=== PATIENT | female | born 1980 | race Caucasian/White ===

== ENCOUNTER 2017-01-23 04:09 | Observation (INO) | payer OTHER ==
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
[2017-01-23] MEDS ORDERED: VALIUM 10 MG/2 ML SYRINGE IV ONE (04:48)
[2017-01-23] MEDS ORDERED: Sodium Chloride 0.9% 1000 ML 1,000 ML IV STA (04:57)
[2017-01-23] MEDS ORDERED: VALIUM 10 MG/2 ML SYRINGE ONE (05:03)
[2017-01-23] MEDS ORDERED: Sodium Chloride 0.9% 1000 ML 1,000 ML ONE (05:03)
[2017-01-23 05:06] LABS: BASOPHIL % 0.3 % (0.0-0.4); Eosinophil % 0.4 % (0.00-5.0); Granulocytes % 80.4 % (36.0-66.0); Lymphocytes % 12.9 % (24.0-44.0); Mean Platelet Volume 10.3 fl (6-9.5); Platelet Count 313 K/mm3 (150-450); Red Blood Count 4.87 M/mm3 (4.1-5.4); Red Cell Distribution Width 13.2 % (11.5-14.0); White Blood Count 13.8 K/mm3 (4.0-10.5)
[2017-01-23 05:14] LABS: Collection Type CLEAN CATCH
[2017-01-23 05:15] LABS: Bacteria PACKED /HPF (NEGATIVE); COMPLETE URINE MICROSCOPIC? YES; Epithelial Cells MANY /HPF (FEW); Mucus MODERATE /HPF (NEGATIVE); Ph 5.5 (5-6)
[2017-01-23] MEDS ORDERED: BACTRIM DS TABLET PO STA (05:19)
[2017-01-23] MEDS ORDERED: BACTRIM DS TABLET PO ONE (05:29)
[2017-01-23 05:30] LABS: ALBUMIN 4.2 g/dL (3.4-5.0); ALKALINE PHOSPHATASE 68 U/L (46-116); ANION GAP 17.7 MEQ/L (5-15); BILIRUBIN,TOTAL 0.7 mg/dL (0.2-1.0); BLOOD UREA NITROGEN 13 mg/dL (9-20); CHLORIDE 104 mEq/L (98-107); Glucose 164 MG/DL (70-110); Potassium 3.5 mEq/L (3.5-5.1); SGOT/AST 41 U/L (15-37); SGPT/ALT 69 U/L (12-78); SODIUM 143 mEq/L (136-145); Total Protein 7.9 gm/dL (6.4-8.2)
[2017-01-23 05:31] LABS: ACETAMINOPHEN < 2.0 ug/ml (10-30)
[2017-01-23] MEDS ORDERED: VALIUM 10 MG/2 ML SYRINGE IV PRN (06:33)
[2017-01-23] MEDS: Sodium Chloride 0.9% 1000 ML 1,000 ML IV SCH ×2 (06:47→21:17)
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
[2017-01-23] MEDS ORDERED: SODIUM CHLORIDE 0.9% IV STA (09:55)
[2017-01-23] MEDS: BACTRIM DS TABLET PO SCH ×2 (16:47→22:51)
[2017-01-24] MEDS: Sodium Chloride 0.9% 1000 ML 1,000 ML IV SCH ×2 (06:38→15:56)
--- NOTE | 2017-01-24 08:38 | PCM.NOTE ---
Date and Time: 01/24/17 0836 Subjective Assessment: patient remains very paranoid and delusional, feels anxious today. unable to sleep Objective Exam General Appearance: no apparent distress Respiratory Exam: normal breath sounds, lungs clear, No respiratory distress Cardiovascular Exam: regular rate/rhythm, normal heart sounds Gastrointestinal/Abdomen Exam: soft, No tenderness, No mass OBJECTIVE DATA Vital Signs: Vital Signs - 24 hr Temp Pulse Resp BP Pulse Ox 01/24/17 07:38 98 F 91 H 18 105/69 94 L 01/24/17 04:00 88 01/24/17 03:58 98.2 F 88 18 105/67 95 01/24/17 00:00 97.8 F 97 H 16 113/72 94 L 01/23/17 20:00 98.2 F 93 H 12 110/83 96 01/23/17 15:53 98.2 F 103 H 12 98/66 100 01/23/17 15:48 100 H 01/23/17 14:44 103 H 12 110/69 96 01/23/17 12:00 97.9 F 85 15 81/56 94 L 01/23/17 10:45 89 16 105/66 95 01/23/17 10:36 87 18 86/63 98 01/23/17 09:51 90 18 77/61 97 01/23/17 09:50 98 H 21 73/58 97 Oxygen-Last 24 hours O2 Percentage 2 Liters = 28% O2 Percentage 2 Liters = 28% O2 Percentage 2 Liters = 28% O2 Percentage 2 Liters = 28% O2 Percentage 2 Liters = 28% O2 Percentage 2 Liters = 28% O2 Percentage 2 Liters = 28% O2 Percentage 2 Liters = 28% Pain Assessment - Last Documented Pain Scale Used 0-10 Pain Scale Intake and Output: Intake & Output 01/21/17 01/22/17 01/23/17 01/24/17 11:59 11:59 11:59 11:59 Intake Total 4714 Balance 4714 Weight 104.3 kg 107.501 kg Assessment/Plan (1) Paranoia (psychosis) Current Visit: Yes Status: Acute Assessment & Plan: resume home klonopin dose, awaiting bed placement. nursing to contact Dr Rowley today. bed was supposed to be available yesterday in stress unit but unavailable again. Code(s): F22 - DELUSIONAL DISORDERS (2) Hallucination Current Visit: Yes Status: Acute Code(s): R44.3 - HALLUCINATIONS, UNSPECIFIED (3) Drug abuse, amphetamine type Current Visit: Yes Status: Acute Code(s): F15.10 - OTHER STIMULANT ABUSE, UNCOMPLICATED (4) UTI (urinary tract infection) Current Visit: Yes Status: Acute Assessment & Plan: continue bactrim, c and s pending. Code(s): N39.0 - URINARY TRACT INFECTION, SITE NOT SPECIFIED
[2017-01-24] MEDS: Geodon 20 MG Capsule PO SCH ×2 (08:46→21:10)
[2017-01-24] MEDS: Nicoderm CQ 21 MG TOP SCH (09:17)
[2017-01-24] MEDS: Klonopin 0.5 MG PO SCH ×2 (10:40→21:10)
[2017-01-24] MEDS: BACTRIM DS TABLET PO SCH ×2 (10:53→21:10)
[2017-01-25] MEDS: Sodium Chloride 0.9% 1000 ML 1,000 ML IV SCH (01:05)
[2017-01-25] MEDS: Geodon 20 MG Capsule PO SCH ×2 (08:57→18:04)
[2017-01-25] MEDS: Klonopin 0.5 MG PO SCH ×2 (09:00→21:02)
[2017-01-25] MEDS: BACTRIM DS TABLET PO SCH ×2 (09:00→21:02)
--- NOTE | 2017-01-25 09:07 | PCM.NOTE ---
Date and Time: 01/25/17902 Subjective Assessment: She reports she has a headache. She denies any hallucinations and denies SI at this time. She was on a emergency chcf but her nurse states this ran out this AM. We are awaiting a bed at the stress center at [facility]. Her nurse reports her oxygen saturation went to 89% on room air this AM so she was placed on 2 L NC. - Review of Systems Constitutional: No Symptoms Eyes: No Symptoms Ears, Nose, & Throat: No Symptoms Respiratory: No Symptoms Cardiac: No Symptoms Abdominal/Gastrointestinal: No Symptoms Genitourinary Symptoms: No Symptoms Musculoskeletal: No Symptoms Neurological: Headache Objective Exam General Appearance: no apparent distress Neurologic Exam: alert, cooperative Skin Exam: normal color, warm, dry, No rash Respiratory Exam: normal breath sounds, lungs clear, No respiratory distress, No airway intact Cardiovascular Exam: regular rate/rhythm, normal heart sounds, No murmur, No friction rub, No gallop Gastrointestinal/Abdomen Exam: soft, normal bowel sounds, No tenderness, No distention, No mass Extremity Exam: other (no c/c/e) OBJECTIVE DATA Vital Signs: Vital Signs - 24 hr Temp Pulse Resp BP Pulse Ox 01/25/17 04:00 94 H 16 103/71 98 01/25/17 00:00 87 18 01/24/17 20:00 98.6 F 88 20 103/62 01/24/17 15:34 98 F 90 18 130/67 94 L 01/24/17 11:54 97.8 F 98 H 18 103/73 99 Pain Assessment - Last Documented Pain Scale Used 0-10 Pain Scale Intake and Output: Intake & Output 01/23/17 01/24/17 01/25/17 01/26/17 06:59 06:59 06:59 06:59 Intake Total 4714 4788 Balance 4714 4788 Weight 107.501 kg 107.501 kg Assessment/Plan (1) Paranoia (psychosis) Current Visit: Yes Status: Acute Assessment & Plan: Continue current medication. Awaiting bed at [facility]. Code(s): F22 - DELUSIONAL DISORDERS (2) UTI (urinary tract infection) Current Visit: Yes Status: Acute Assessment & Plan: Continue Bactrim Day 3. Urine cx grew E. Coli susceptible to this. Code(s): N39.0 - URINARY TRACT INFECTION, SITE NOT SPECIFIED (3) Drug abuse, amphetamine type Current Visit: Yes Status: Acute Code(s): F15.10 - OTHER STIMULANT ABUSE, UNCOMPLICATED (4) Hallucination Current Visit: Yes Status: Acute Assessment & Plan: Patient denies hallucinations today. Continue current medication. Code(s): R44.3 - HALLUCINATIONS, UNSPECIFIED
[2017-01-25] MEDS: Nicoderm CQ 21 MG TOP SCH (12:18)
[2017-01-26] MEDS: Geodon 20 MG Capsule PO SCH ×2 (07:53→17:24)
[2017-01-26] MEDS: Nicoderm CQ 21 MG TOP SCH (10:19)
[2017-01-26] MEDS: BACTRIM DS TABLET PO SCH ×2 (10:20→21:08)
[2017-01-26] MEDS: Klonopin 0.5 MG PO SCH ×2 (10:20→21:08)
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
[2017-01-27] MEDS ORDERED: TYLENOL 325 MG PO PRN (08:57)
--- NOTE | 2017-01-27 08:57 | PCM.NOTE ---
Date and Time: 01/27/1755 Subjective Assessment: patient still unable to get a bed with [facility]. states she is feeling much better, no suicidal/homicidal ideation. no hallucinations. still feels anxious Objective Exam General Appearance: no apparent distress, alert Respiratory Exam: normal breath sounds, lungs clear, No respiratory distress Cardiovascular Exam: regular rate/rhythm, normal heart sounds Gastrointestinal/Abdomen Exam: soft, No tenderness, No mass Extremity Exam: normal inspection, normal range of motion OBJECTIVE DATA Vital Signs: Vital Signs - 24 hr Temp Pulse Resp BP Pulse Ox 01/27/17 06:40 87 16 93 L 01/27/17 04:00 88 20 130/80 95 01/27/17 00:00 86 20 121/88 93 L 01/26/17 20:00 98.2 F 86 18 106/78 96 01/26/17 16:00 98.3 F 86 18 112/76 95 01/26/17 12:05 93 L 01/26/17 12:00 98.2 F 82 20 116/80 89 L Oxygen-Last 24 hours O2 Percentage 2 Liters = 28% O2 Percentage 2 Liters = 28% Pain Assessment - Last Documented Pain Intensity 0 Pain Scale Used 0-10 Pain Scale Intake and Output: Intake & Output 01/24/17 01/25/17 01/26/17 01/27/17 11:59 11:59 11:59 11:59 Intake Total 4714 4788 727 1000 Balance 4714 4788 727 1000 Weight 107.501 kg 107.501 kg Assessment/Plan (1) Paranoia (psychosis) Current Visit: Yes Status: Acute Assessment & Plan: still recommend inpatient psych and patient is agreeable and oriented Code(s): F22 - DELUSIONAL DISORDERS (2) Hallucination Current Visit: Yes Status: Resolved Code(s): R44.3 - HALLUCINATIONS, UNSPECIFIED (3) Drug abuse, amphetamine type Current Visit: Yes Status: Acute Code(s): F15.10 - OTHER STIMULANT ABUSE, UNCOMPLICATED (4) UTI (urinary tract infection) Current Visit: Yes Status: Acute Assessment & Plan: continue po bactrim, sens E coli Code(s): N39.0 - URINARY TRACT INFECTION, SITE NOT SPECIFIED
[2017-01-27] MEDS: Geodon 20 MG Capsule PO SCH (09:04)
[2017-01-27 09:15] VITALS: O2SAT 92
[2017-01-27] MEDS: Klonopin 0.5 MG PO SCH (09:43)
[2017-01-27] MEDS: Nicoderm CQ 21 MG TOP SCH (09:44)
[2017-01-27] MEDS ORDERED: VITAMIN D2 PO SCH (10:00)
[2017-01-27 12:37] VITALS: BP 122/80; PULSE 87
== END 2017-01-27 14:00 ==
LOC: ED 04:09 → ICU 06:06
PROVIDERS: ADMIT Family Medicine; ATTEND Family Medicine
DX: F22 Delusional disorders (principal); N39.0 Urinary tract infection, site not specified; F15.10 Other stimulant abuse, uncomplicated; R44.3 Hallucinations, unspecified; F41.9 Anxiety disorder, unspecified; F31.9 Bipolar disorder, unspecified; F20.9 Schizophrenia, unspecified
CPT/HCPCS: 36000; 36415; 80053; 80178; 80307; 80320; 81000; 83986; 84703; 85025; 87077; 87086; 87186; 96360; 96374; 99285; G0378; G0481; J3360; A9270-GY

== ENCOUNTER 2017-02-26 15:50 | Emergency (ER) | payer OTHER ==
[2017-02-26 15:59] VITALS: O2SAT 96
[2017-02-26] MEDS ORDERED: BACIGUENT PACKET ONE (16:06)
[2017-02-26] MEDS ORDERED: BACIGUENT PACKET TP ONE (16:07)
[2017-02-26 16:12] VITALS: BP 112/74; PULSE 101
--- NOTE | 2017-02-26 16:21 | ERPHSYRPT ---
- History of Present Illness Time Seen by Provider: 02/26/17 16:20 Source: patient Exam Limitations: no limitations Patient Subjective Stated Complaint: pt states she had sutures placed to posterior wrist 5 weeks ago and has "been to scared to have sutures removed." Triage Nursing Assessment: pt pink, warm, dry. no redness to wound. pt afebrile. Physician History: The patient comes to the ER to have sutures removed from her left wrist. The sutures were placed 5 weeks ago when she purposefully cut her left wrist. Timing/Duration: week(s) (5) Quality: other (suture removal) Severity: mild Location: hands Possible Causes: other (lac) Allergies/Adverse Reactions: cefaclor [From [facility]] Allergy (Verified 01/23/17 04:32) codeine Allergy (Verified 01/23/17 09:06) oxycodone Allergy (Verified 01/23/17 04:32) Penicillins Allergy (Verified 01/23/17 04:32) Home Medications: Clonazepam 1 mg PO BID 01/23/17 [History] Ergocalciferol (Vitamin D2) [Vitamin D2] 50,000 unit PO Q7D 01/23/17 [History] Lurasidone HCl [Latuda] 80 mg PO DAILY 01/23/17 [History] Prazosin HCl 5 mg PO HS 01/23/17 [History] Trazodone HCl 150 mg PO HS 01/23/17 [History] Hx Tetanus, Diphtheria Vaccination/Date Given: Yes (up to date) Hx Influenza Vaccination/Date Given: Yes Hx Pneumococcal Vaccination/Date Given: No Immunizations Up to Date: Yes - Review of Systems Constitutional: No Fever, No Chills Eyes: No Symptoms Ears, Nose, & Throat: No Symptoms Respiratory: No Cough, No Dyspnea Cardiac: No Chest Pain, No Edema, No Syncope Abdominal/Gastrointestinal: No Abdominal Pain, No Nausea, No Vomiting, No Diarrhea Genitourinary Symptoms: No Dysuria Musculoskeletal: Injury Skin: Other (lac), No Rash Neurological: No Dizziness, No Focal Weakness, No Sensory Changes Psychological: No Symptoms Endocrine: No Symptoms Hematologic/Lymphatic: No Symptoms Immunological/Allergic: No Symptoms All Other Systems: Reviewed and Negative - Past Medical History Pertinent Past Medical History: Yes Neurological History: Migraines ENT History: No Pertinent History Cardiac History: No Pertinent History Respiratory History: No Pertinent History Endocrine Medical History: No Pertinent History Musculoskeletal History: No Pertinent History GI Medical History: No Pertinent History History: No Pertinent History Psycho-Social History: Anxiety, Attention Deficit Disorder, Bipolar, Other Other Medical History: schiozophrenia - Past Surgical History Past Surgical History: Yes Gastrointestinal: Cholecystectomy Female Surgical History: Tubal Ligation - Social History Smoking Status: Current every day smoker How long have you smoked: 25 Exposure to second hand smoke: No Drug Use: none Patient Lives Alone: No - Female History Hx Last Menstrual Period: january 2017 - Nursing Vital Signs Nursing Vital Signs: Initial Vital Signs Temperature 98.1 F Temperature Source Oral Pulse Rate 101 Respiratory Rate 18 Blood Pressure [Right Arm] 112/74 Pain Intensity 0 - Physical Exam General Appearance: no apparent distress, alert Eye Exam: PERRL/EOMI, eyes nml inspection Ears, Nose, Throat Exam: normal ENT inspection, pharynx normal, moist mucous membranes Neck Exam: normal inspection, non-tender, supple, full range of motion Respiratory Exam: normal breath sounds, lungs clear, No respiratory distress Cardiovascular Exam: regular rate/rhythm, normal heart sounds Gastrointestinal/Abdomen Exam: soft, mass, No tenderness Pelvic Exam: not done (is a) Rectal Exam: not done Back Exam: normal inspection, normal range of motion, No CVA tenderness, No vertebral tenderness Extremity Exam: normal inspection, normal range of motion Neurologic Exam: alert, oriented x 3, cooperative, normal mood/affect, sensation nml, No motor deficits Skin Exam: laceration (healing wound with sutures) SpO2 Interpretation: normal SpO2: 96 Oxygen Delivery: Room Air Ordered Tests: Active Orders 24 hr Category Date Time Status Suture Removal STAT Care 02/26/17 16:07 Active Medication Summary Discontinued Medications Generic Name Dose Route Start Last Admin Trade Name Freq PRN Reason Stop Dose Admin Bacitracin 0.9 gm 02/26/17 16:07 02/26/17 16:09 Baciguent Packet TP 02/26/17 16:08 0.9 gm STAT ONE Administration Bacitracin Confirm 02/26/17 16:06 Baciguent Packet Administered 02/26/17 16:07 Dose 1 gm .ROUTE .STK-MED ONE - Progress Progress: improved Progress Note: 02/26/17 16:27 sutures removed by nurse. - Departure Time of Disposition: 16:27 Departure Disposition: Home Clinical Impression: Visit for suture removal Condition: Stable Critical Care Time: No
== END 2017-02-26 16:37 | disposition home or self-care (01) ==
LOC: ED 15:50
DX: Z48.02 Encounter for removal of sutures (principal)
CPT/HCPCS: 99283; A9270-GY

== ENCOUNTER 2017-03-29 07:17 | Observation (INO) | payer OTHER ==
[2017-03-29] MEDS ORDERED: Ativan 2 MG/1 ML VIAL IM ONE ×2 (07:23→08:12)
[2017-03-29] MEDS ORDERED: Ativan 2 MG/1 ML VIAL ONE ×3 (07:24→08:40)
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
[2017-03-29 07:44] LABS: BASOPHIL % 0.3 % (0.0-0.4); Eosinophil % 0.4 % (0.00-5.0); Granulocytes % 77.3 % (36.0-66.0); Lymphocytes % 12.9 % (24.0-44.0); Mean Cell Volume 89.4 fl (78-100); Mean Corpuscular Hemoglobin 29.8 pg (26-32); Mean Platelet Volume 10.3 fl (6-9.5); Monocytes % 9.1 % (0.0-12.0); Platelet Count 291 K/mm3 (150-450); Red Blood Count 4.23 M/mm3 (4.1-5.4); Red Cell Distribution Width 12.8 % (11.5-14.0); White Blood Count 15.9 K/mm3 (4.0-10.5)
[2017-03-29 08:03] LABS: ALBUMIN 3.7 g/dL (3.4-5.0); ALKALINE PHOSPHATASE 59 U/L (46-116); ANION GAP 17.6 MEQ/L (5-15); BLOOD UREA NITROGEN 5 mg/dL (9-20); CHLORIDE 100 mEq/L (98-107); Carbon Dioxide 20.5 mEq/L (21-32); Glucose 170 MG/DL (70-110); Potassium 3.1 mEq/L (3.5-5.1); SGOT/AST 44 U/L (15-37); SGPT/ALT 41 U/L (12-78); SODIUM 135 mEq/L (136-145); Total Protein 7.9 gm/dL (6.4-8.2)
[2017-03-29 08:05] LABS: ACETAMINOPHEN < 2.0 ug/ml (10-30)
[2017-03-29] MEDS ORDERED: Haldol 5 MG IM ONE (08:12)
[2017-03-29] MEDS ORDERED: Haldol 5 MG ONE (08:14)
[2017-03-29 08:17] LABS: Collection Type VOID
[2017-03-29 08:18] LABS: ADD URINE CULTURE? YES (NO); Bacteria FEW /HPF (NEGATIVE); COMPLETE URINE MICROSCOPIC? YES; Epithelial Cells MANY /HPF (FEW)
[2017-03-29] MEDS ORDERED: Sodium Chloride 0.9% 1000 ML 1,000 ML IV STA (08:30)
[2017-03-29] MEDS ORDERED: Ativan 2 MG/1 ML VIAL IV ONE (08:39)
[2017-03-29] MEDS ORDERED: Sodium Chloride 0.9% 1000 ML 1,000 ML ONE (08:40)
[2017-03-29] MEDS ORDERED: Sodium Chloride 0.9% 1000 ML 1,000 ML IV SCH (11:18)
[2017-03-29] MEDS ORDERED: Ativan 2 MG/1 ML VIAL IV PRN (11:18)
[2017-03-29] MEDS ORDERED: Geodon 20 MG INJ IM PRN (11:22)
[2017-03-29 12:20] VITALS: O2SAT 98
[2017-03-29 12:28] LABS: ACETAMINOPHEN < 2.0 ug/ml (10-30); TROPONIN < 0.017 ng/ml (0.000-0.056)
[2017-03-29] MEDS ORDERED: POTASSIUM CHLORIDE 20 mEq IN WATER 100ML 100 ML IV ONE ×3 (12:30→18:09)
--- NOTE | 2017-03-29 14:45 | PCM.HP ---
History of Present Illness - Chief Complaint Chief Complaint: Psychosis Date: 03/29/17 History of Present Illness: is a 36 year old female. Currently she is sedated and family has left. History is obtained by the ED doctor, staff and review of the records. See ED note for further details. She was paranoid with history of paranoid schizophrenia and methamphetamine use and was positive for amphetamines. She was seeing things, hearing things, threatening to hurt herself, attempting to hurt herself and attempting to hurt the nursing staff as well. She has been given ativan and Haldol and is currently sedated and sleeping. - Review of Systems Constitutional: Other (unable to obtaine secondary to mental status) Medications & Allergies Home Medications: Home Medication List Prazosin HCl 10 mg PO HS 01/23/17 [History Confirmed 03/29/17] Trazodone HCl 150 mg PO HS 01/23/17 [History Confirmed 03/29/17] Gabapentin 400 mg [Neurontin 400 MG] 400 mg PO TID 03/29/17 [History Confirmed 03/29/17] Sertraline HCl [Zoloft] 100 mg PO DAILY 03/29/17 [History Confirmed 03/29/17] Allergies/Adverse Reactions: Allergies Allergy/AdvReac Type Severity Reaction Status Date / Time cefaclor [From Ceclor] Allergy Verified 03/29/17 07:50 codeine Allergy Verified 03/29/17 07:50 oxycodone Allergy Verified 03/29/17 07:50 Penicillins Allergy Verified 03/29/17 07:50 - Past Medical History Past Medical History: Yes Neurological History: Migraines ENT History: No Pertinent History Cardiac History: No Pertinent History Respiratory History: No Pertinent History Endocrine Medical History: No Pertinent History Musculoskelatal History: No Pertinent History GI Medical History: No Pertinent History History: No Pertinent History Pyscho-Social History: Anxiety, Attention Deficit Disorder, Bipolar, Other Comment: schiozophrenia - Female History Hx Last Menstrual Period: HYST Are you now?: No - Past Surgical History Past Surgical History: Yes GI Surgical History: Cholecystectomy Female Surgical History: Tubal Ligation - Social History Smoking Status: Current every day smoker How long have you smoked: 25 Exposure to second hand smoke: No Alcohol: None Drug Use: none - Physical Exam Vital Signs: Vital Signs - 24 hr Temp Pulse Resp BP Pulse Ox 03/29/17 12:19 98 03/29/17 09:43 108 H 18 102/53 94 L 03/29/17 08:58 138 H 26 H 143/95 94 L 03/29/17 07:18 99.9 F 146 H 28 H 164/90 97 Oxygen-Last 24 hours O2 Percentage 2 Liters = 28% O2 Percentage 2 Liters = 28% General Appearance: no apparent distress, obese Neurologic Exam: No alert Eye Exam: PERRL/EOMI, No scleral icterus, No pale conjunctivae Ears, Nose, Throat Exam: moist mucous membranes Neck Exam: normal inspection, non-tender, supple Respiratory Exam: normal breath sounds, lungs clear Cardiovascular Exam: regular rate/rhythm, normal heart sounds, normal peripheral pulses, No edema Gastrointestinal/Abdomen Exam: soft, normal bowel sounds, No tenderness, No distention, No mass, No guarding Extremity Exam: other, No calf tenderness, No pedal edema Skin Exam: other (old linear superficial scars to left forearm and aparent deep scar to the left wrist no new lesions. no abraision to the right leg. SHe has some picking sores on her face that do not appear infected) Results - Labs Lab/Micro Results: Lab Results-Last 24 Hours 03/29/17 Range/Units 12:00 Troponin I < 0.017 (0.000-0.056) ng/ml Acetaminophen < 2.0 L (10-30) ug/ml Assessment/Plan (1) Acute psychosis Current Visit: Yes Status: Acute Assessment & Plan: currently sedated unclear if this is her exacerbation of her shizophrenia or from drug use as amphetamine positive as well. she is definitely an immenent threat to her own health currently and ED hold was applied for. will treat with PRN geodon or ativan if recurrence. End tidal CO2 monitor while sedated currently monitor for arousal repeating apap level 4 hours after inital draw troponin negative repeat X2 d/c if remain negative. normal saline bolus and infusion run at 250 mL/h now repeat CMP and CPK at 15:00 and monitor likely elevation due to her acute aggitation, hitting mcclellan and exertion and possibly any amphetamine use if arouses and is stable and labs reassuring would be stable for transfer [facility] if arousing and labs improving. Code(s): F23 - BRIEF PSYCHOTIC DISORDER (2) Hypokalemia Current Visit: Yes Status: Acute Code(s): E87.6 - HYPOKALEMIA (3) Increased CPK level Current Visit: Yes Status: Acute
[2017-03-29 15:34] LABS: ALBUMIN 2.8 g/dL (3.4-5.0); ALKALINE PHOSPHATASE 47 U/L (46-116); ANION GAP 10.8 MEQ/L (5-15); BLOOD UREA NITROGEN 3 mg/dL (9-20); CHLORIDE 107 mEq/L (98-107); Carbon Dioxide 24.5 mEq/L (21-32); Glucose 104 MG/DL (70-110); Potassium 3.3 mEq/L (3.5-5.1); SGOT/AST 34 U/L (15-37); SGPT/ALT 33 U/L (12-78); SODIUM 139 mEq/L (136-145); TROPONIN < 0.017 ng/ml (0.000-0.056); Total Protein 6.2 gm/dL (6.4-8.2)
[2017-03-29 20:16] VITALS: PULSE 87
[2017-03-29 20:26] VITALS: BP 110/80
--- NOTE | 2017-03-29 22:33 | XRAY ---
Indication: Pain following punching injury. Comparison: None 3 views of the right hand demonstrates old fifth metacarpal fracture. No other bony, articular, or soft tissue abnormalities.
== END 2017-03-29 22:40 | disposition short-term general hospital (02) ==
LOC: ED 07:17 → ICU 11:07
PROVIDERS: ADMIT Family Medicine; ATTEND Family Medicine
DX: F23 Brief psychotic disorder (principal); E87.6 Hypokalemia; R94.30 Abnormal result of cardiovascular function study, unspecified; F20.0 Paranoid schizophrenia; F31.9 Bipolar disorder, unspecified; F98.8 Other specified behavioral and emotional disorders with onset usually occurring in childhood and adolescence; Z72.0 Tobacco use; Z79.899 Other long term (current) drug therapy
CPT/HCPCS: 36000; 36415; 73130; 80053; 80307; 80320; 81000; 82550; 83986; 84132; 84484; 84703; 85025; 87086; 93005; 93041; 93268; 94770; 96360; 96372; 96374; 96376; 99285; G0378; G0481; J1630; J2060; J3480; J3486

== ENCOUNTER 2017-12-13 15:29 | Observation (INO) | payer OTHER ==
[2017-12-13] MEDS ORDERED: Sodium Chloride 0.9% 1000 ML 1,000 ML IV STA (16:26)
--- NOTE | 2017-12-13 16:26 | ERPHSYRPT ---
- History of Present Illness Time Seen by Provider: 12/13/17 16:21 Historian: patient, family Exam Limitations: no limitations Physician History: The patient is a 37-year-old female with her complaining of onset of chest pain earlier today that is worse with breathing. Last night she did methamphetamine. This morning she did a monster energy drink and a 5 hour energy drink. She has a psych history of paranoia and had not been taking her psychiatric medications because she ran out. She saw her psychiatrist early this morning and took a double dose of her Haldol 5 mg each and then later in the morning took another dose of Haldol. She has a history of paranoid delusions and anxiety. She smokes. She has no local doctor. She denies shortness of breath. Timing/Duration: today Activities at Onset: none Quality: sharpness Location: substernal Chest Pain Radiation: no radiation Severity of Pain-Max: moderate Severity of Pain-Current: moderate Modifying Factors: Improves With: breathing Associated Symptoms: No nausea, No vomiting Prior Chest Pain/Cardiac Workup: no prior chest pain Nitro Today/Relief: no nitro taken today Aspirin Treatment Today: no aspirin today Allergies/Adverse Reactions: cefaclor [From Ceclor] Allergy (Verified 12/13/17 16:35) codeine Allergy (Verified 12/13/17 16:35) oxycodone Allergy (Verified 12/13/17 16:35) Penicillins Allergy (Verified 12/13/17 16:35) Home Medications: Prazosin HCl 10 mg PO HS 01/23/17 [History] Trazodone HCl 150 mg PO HS 01/23/17 [History] Gabapentin 400 mg [Neurontin 400 MG] 400 mg PO TID 03/29/17 [History] Sertraline HCl [Zoloft] 100 mg PO DAILY 03/29/17 [History] Haloperidol 5 mg [Haldol 5 MG] 5 mg PO TID 12/13/17 [History] Hx Tetanus, Diphtheria Vaccination/Date Given: Yes (up to date) Hx Influenza Vaccination/Date Given: Yes Hx Pneumococcal Vaccination/Date Given: No - Review of Systems Constitutional: No Fever, No Chills Eyes: No Symptoms Ears, Nose, & Throat: No Symptoms Respiratory: No Cough, No Dyspnea Cardiac: Chest Pain Abdominal/Gastrointestinal: No Abdominal Pain, No Nausea, No Vomiting, No Diarrhea Genitourinary Symptoms: No Dysuria Musculoskeletal: No Back Pain, No Neck Pain Skin: No Rash Neurological: No Dizziness, No Focal Weakness, No Sensory Changes Psychological: Drug Abuse, Anxiety Endocrine: No Symptoms Hematologic/Lymphatic: No Symptoms Immunological/Allergic: No Symptoms All Other Systems: Reviewed and Negative - Past Medical History Pertinent Past Medical History: Yes Neurological History: Migraines ENT History: No Pertinent History Cardiac History: No Pertinent History Respiratory History: No Pertinent History Endocrine Medical History: No Pertinent History Musculoskeletal History: No Pertinent History GI Medical History: No Pertinent History History: No Pertinent History Psycho-Social History: Anxiety, Attention Deficit Disorder, Bipolar, Other Other Medical History: schiozophrenia - Past Surgical History Past Surgical History: Yes Gastrointestinal: Cholecystectomy Female Surgical History: Tubal Ligation - Social History Smoking Status: Current every day smoker How long have you smoked: 25 Exposure to second hand smoke: No Drug Use: none Patient Lives Alone: No - Nursing Vital Signs Nursing Vital Signs: Initial Vital Signs Temperature 99.1 F 12/13/17 15:30 Pulse Rate 113 H 12/13/17 15:30 Respiratory Rate 24 12/13/17 15:30 Blood Pressure 107/73 12/13/17 15:30 O2 Sat by Pulse Oximetry 97 12/13/17 15:30 Pain Scale Pain Intensity 5 - Physical Exam General Appearance: anxiety Eye Exam: PERRL/EOMI, eyes nml inspection Ears, Nose, Throat Exam: normal ENT inspection, moist mucous membranes Neck Exam: normal inspection, non-tender, supple, full range of motion Respiratory Exam: normal breath sounds, lungs clear, No respiratory distress, No wheezing Cardiovascular Exam: tachycardia Gastrointestinal/Abdomen Exam: soft, No tenderness, No mass Pelvic Exam: not done Rectal Exam: not done Back Exam: normal inspection, No CVA tenderness, No vertebral tenderness Extremity Exam: normal inspection, normal range of motion Neurologic Exam: alert, oriented x 3, cooperative, normal mood/affect, sensation nml, other (anxious), No motor deficits Skin Exam: normal color, warm, dry SpO2 Interpretation: normal - Course EKG Interpreted by Me: RATE, Sinus Tach, NORMAL INTERVALS, NORMAL QRS, NORMAL ST -T, Other (no change compared to EKG 03/29/17.) Ordered Tests: Active Orders 24 hr Category Date Time Status EKG-ER Only STAT Care 12/13/17 16:26 Active IV Insertion STAT Care 12/13/17 16:26 Active CHEST 2 VIEWS (PA AND LAT) Stat Exams 12/13/17 16:27 Taken CBC W DIFF Stat Lab 12/13/17 16:40 Completed CMP Stat Lab 12/13/17 16:40 Completed LIPASE Stat Lab 12/13/17 16:40 Completed Lactic Acid Stat Lab 12/13/17 16:38 Results TROPONIN Q3H Lab 12/13/17 16:50 Completed TROPONIN Q3H Lab 12/13/17 19:30 Ordered TROPONIN Q3H Lab 12/13/17 22:30 Ordered TROPONIN Q3H Lab 12/14/17 01:30 Ordered TROPONIN Q3H Lab 12/14/17 04:30 Ordered UA W/RFX UR CULTURE Stat Lab 12/13/17 17:32 Received Urine Triage Profile Stat Lab 12/13/17 17:32 Received Medication Summary Discontinued Medications Generic Name Dose Route Start Last Admin Trade Name Freq PRN Reason Stop Dose Admin Aspirin 324 mg 12/13/17 16:28 12/13/17 16:34 Baby Aspirin 81 Mg Chew PO 12/13/17 16:29 324 mg STAT ONE Administration Aspirin Confirm 12/13/17 16:30 Baby Aspirin 81 Mg Chew Administered 12/13/17 16:31 Dose 324 mg .ROUTE .STK-MED ONE Sodium Chloride 1,000 mls @ 999 mls/hr 12/13/17 16:26 12/13/17 16:34 Sodium Chloride 0.9% 1000 Ml IV 12/13/17 17:26 999 mls/hr .Q1H1M STA Administration Sodium Chloride Confirm 12/13/17 16:31 Sodium Chloride 0.9% 1000 Ml Administered 12/13/17 16:32 Dose 1,000 mls @ ud .ROUTE .STK-MED ONE Lorazepam 2 mg 12/13/17 16:28 12/13/17 16:33 Ativan 2 Mg/1 Ml Vial IV 12/13/17 16:29 2 mg STAT ONE Administration Lorazepam Confirm 12/13/17 16:31 Ativan 2 Mg/1 Ml Vial Administered 12/13/17 16:32 Dose 2 mg .ROUTE .STK-MED ONE Potassium Chloride 20 meq 12/13/17 17:38 12/13/17 17:43 Klor Con 10 Meq PO 12/13/17 17:39 20 meq STAT ONE Administration Potassium Chloride Confirm 12/13/17 17:42 Klor Con 10 Meq Administered 12/13/17 17:43 Dose 20 meq PO .STK-MED ONE Lab/Rad Data: Laboratory Result Diagrams 12/13/17 16:40 12/13/17 16:40 Laboratory Results 12/13/17 12/13/17 12/13/17 Range/Units 16:50 16:40 16:40 WBC 11.5 H (4.0-10.5) K/mm3 RBC 4.30 (4.1-5.4) M/mm3 Hgb 12.9 (12.0-16.0) gm/dl Hct 37.7 (35-47) % MCV 87.7 (78-100) fl MCH 30.0 (26-32) pg MCHC 34.2 (32-36) g/dl RDW 13.0 (11.5-14.0) % Plt Count 295 (150-450) K/mm3 MPV 10.5 H (6-9.5) fl Gran % 76.8 H (36.0-66.0) % Lymphocytes % 16.5 L (24.0-44.0) % Monocytes % 6.1 (0.0-12.0) % Eosinophils % 0.3 (0.00-5.0) % Basophils % 0.3 (0.0-0.4) % Basophils # 0.03 (0-0.4) Sodium 143 (136-145) mEq/L Potassium 3.2 L (3.5-5.1) mEq/L Chloride 104 (98-107) mEq/L Carbon Dioxide 20.4 L (21-32) mEq/L Anion Gap 21.9 H (5-15) MEQ/L BUN 9 (9-20) mg/dL Creatinine 1.04 (0.55-1.30) mg/dl Estimated GFR > 60 ML/MIN Glucose 155 H (70-110) MG/DL Lactic Acid (0.4-2.0) Calcium 9.6 (8.5-10.1) mg/dL Total Bilirubin 0.50 (0.2-1.0) mg/dL AST 36 (15-37) U/L ALT 26 (12-78) U/L Alkaline Phosphatase 55 (46-116) U/L Troponin I < 0.017 (0.000-0.056) ng/ml Serum Total Protein 7.6 (6.4-8.2) gm/dL Albumin 3.9 (3.4-5.0) g/dL Lipase 56 L (73-393) U/L 12/13/17 Range/Units 16:38 WBC (4.0-10.5) K/mm3 RBC (4.1-5.4) M/mm3 Hgb (12.0-16.0) gm/dl Hct (35-47) % MCV (78-100) fl MCH (26-32) pg MCHC (32-36) g/dl RDW (11.5-14.0) % Plt Count (150-450) K/mm3 MPV (6-9.5) fl Gran % (36.0-66.0) % Lymphocytes % (24.0-44.0) % Monocytes % (0.0-12.0) % Eosinophils % (0.00-5.0) % Basophils % (0.0-0.4) % Basophils # (0-0.4) Sodium (136-145) mEq/L Potassium (3.5-5.1) mEq/L Chloride (98-107) mEq/L Carbon Dioxide (21-32) mEq/L Anion Gap (5-15) MEQ/L BUN (9-20) mg/dL Creatinine (0.55-1.30) mg/dl Estimated GFR ML/MIN Glucose (70-110) MG/DL Lactic Acid 3.4 H (0.4-2.0) Calcium (8.5-10.1) mg/dL Total Bilirubin (0.2-1.0) mg/dL AST (15-37) U/L ALT (12-78) U/L Alkaline Phosphatase (46-116) U/L Troponin I (0.000-0.056) ng/ml Serum Total Protein (6.4-8.2) gm/dL Albumin (3.4-5.0) g/dL Lipase (73-393) U/L - Progress Progress: improved Air Movement: good Counseled pt/family regarding: lab results, diagnosis - Departure Time of Disposition: 17:47 Departure Disposition: Transfer (Transfer to [facility] per hospitalist Dr Woodson.) Clinical Impression: Dyspnea, Nausea and vomiting, Lung cancer Condition: Stable Critical Care Time: No Referrals: REECE WEINBERG [Primary Care Provider] -
[2017-12-13] MEDS ORDERED: Ativan 2 MG/1 ML VIAL IV ONE (16:28)
[2017-12-13] MEDS ORDERED: BABY ASPIRIN 81 MG CHEW PO ONE (16:28)
[2017-12-13] MEDS ORDERED: BABY ASPIRIN 81 MG CHEW ONE (16:30)
[2017-12-13] MEDS ORDERED: Ativan 2 MG/1 ML VIAL ONE (16:31)
[2017-12-13] MEDS ORDERED: Sodium Chloride 0.9% 1000 ML 1,000 ML ONE (16:31)
[2017-12-13 16:41] LABS: Lactic Acid 3.4 (0.4-2.0)
[2017-12-13 16:54] LABS: BASOPHIL % 0.3 % (0.0-0.4); Basophil (Absolute #) 0.03 (0-0.4); Eosinophil % 0.3 % (0.00-5.0); Eosinophil (Absolute #) 0.03 (0-0.5); Granulocyte Absolute (ANC) 8.81 (1.4-6.9); Granulocytes % 76.8 % (36.0-66.0); Hematocrit 37.7 % (35-47); Hemoglobin 12.9 gm/dl (12.0-16.0); Lymphocyte (Absolute #) 1.89 (1.0-4.6); Lymphocytes % 16.5 % (24.0-44.0); Mean Cell Volume 87.7 fl (78-100); Mean Corpuscular Hgb Concent. 34.2 g/dl (32-36); Mean Platelet Volume 10.5 fl (6-9.5); Monocytes % 6.1 % (0.0-12.0); Platelet Count 295 K/mm3 (150-450); White Blood Count 11.5 K/mm3 (4.0-10.5)
[2017-12-13 17:16] LABS: ALBUMIN 3.9 g/dL (3.4-5.0); ALKALINE PHOSPHATASE 55 U/L (46-116); ANION GAP 21.9 MEQ/L (5-15); BLOOD UREA NITROGEN 9 mg/dL (9-20); CHLORIDE 104 mEq/L (98-107); Calcium 9.6 mg/dL (8.5-10.1); Carbon Dioxide 20.4 mEq/L (21-32); Creatinine 1 1.04 mg/dl (0.55-1.30); EST GLOMERULAR FILTRATION RATE > 60 ML/MIN; Glucose 155 MG/DL (70-110); LIPASE 56 U/L (73-393); Potassium 3.2 mEq/L (3.5-5.1); SGOT/AST 36 U/L (15-37); SGPT/ALT 26 U/L (12-78); SODIUM 143 mEq/L (136-145); Total Protein 7.6 gm/dL (6.4-8.2)
[2017-12-13] MEDS ORDERED: Klor Con 10 MEQ PO ONE ×2 (17:38→17:42)
[2017-12-13 17:50] LABS: Amphetamine,Urine POS. (NEGATIVE); Barbiturate,Urine NEG. (NEGATIVE); Benzodiazepine,Urine NEG. (NEGATIVE); Cocaine,Urine NEG. (NEGATIVE); Methadone,Urine NEG. (NEGATIVE); Opiate,Urine NEG. (NEGATIVE); PCP,Urine NEG. (NEGATIVE); THC,Urine NEG. (NEGATIVE)
[2017-12-13] MEDS ORDERED: Ativan 2 MG/1 ML VIAL IV PRN (18:07)
[2017-12-13 18:12] LABS: Appearance SLIGHTLY CLOUDY (CLEAR); Bacteria MODERATE /HPF (NEGATIVE); Bilirubin NEGATIVE (NEGATIVE); Blood NEGATIVE Ery/ul (0-5); Epithelial Cells MODERATE /HPF (FEW); Glucose NEGATIVE (NEGATIVE); Ketones NEGATIVE (NEGATIVE); Leukocyte Esterase 1+ (NEGATIVE); Mucus MODERATE /HPF (NEGATIVE); Nitrite NEGATIVE (NEGATIVE); Protein,Urine Dip NEGATIVE (Negative); Urobilinogen NORMAL mg/dL (0-1)
[2017-12-13] MEDS ORDERED: MILK OF MAGNESIA 30 ML PO PRN (18:28)
[2017-12-13] MEDS ORDERED: Senokot-S Tablet PO PRN (18:28)
[2017-12-13] MEDS ORDERED: MAALOX ES 30 ML UNIT DOSE PO PRN (18:28)
[2017-12-13] MEDS ORDERED: TYLENOL 325 MG PO PRN (18:28)
[2017-12-13] MEDS ORDERED: Zofran 4 MG/2 ML VIAL IV PRN (18:28)
--- NOTE | 2017-12-13 21:54 | XRAY ---
Indication: Chest pain. Comparison: None PA/lateral chest clear. Heart and mediastinal structures within normal limits. Bony thorax intact. Impression: Nonacute chest.
[2017-12-13] MEDS: Neurontin 400 MG PO SCH (21:55)
[2017-12-13] MEDS: Haldol 5 MG PO SCH (21:56)
[2017-12-13] MEDS ORDERED: Desyrel 150 MG PO SCH (22:00)
[2017-12-14 05:30] LABS: BASOPHIL % 0.5 % (0.0-0.4); Basophil (Absolute #) 0.04 (0-0.4); Eosinophil % 3.5 % (0.00-5.0); Eosinophil (Absolute #) 0.28 (0-0.5); Granulocyte Absolute (ANC) 4.74 (1.4-6.9); Granulocytes % 59.9 % (36.0-66.0); Hematocrit 37.9 % (35-47); Hemoglobin 12.4 gm/dl (12.0-16.0); Lymphocytes % 27.7 % (24.0-44.0); Mean Cell Volume 90.7 fl (78-100); Mean Corpuscular Hemoglobin 29.7 pg (26-32); Mean Corpuscular Hgb Concent. 32.7 g/dl (32-36); Mean Platelet Volume 9.8 fl (6-9.5); Monocyte (Absolute #) 0.67 (0.0-1.3); Monocytes % 8.4 % (0.0-12.0); Platelet Count 267 K/mm3 (150-450); Red Blood Count 4.18 M/mm3 (4.1-5.4); Red Cell Distribution Width 13.3 % (11.5-14.0); White Blood Count 7.9 K/mm3 (4.0-10.5)
[2017-12-14 06:24] LABS: ALBUMIN 3.4 g/dL (3.4-5.0); ALKALINE PHOSPHATASE 49 U/L (46-116); ANION GAP 14.2 MEQ/L (5-15); BLOOD UREA NITROGEN 6 mg/dL (9-20); CHLORIDE 105 mEq/L (98-107); Calcium 8.5 mg/dL (8.5-10.1); Carbon Dioxide 27.7 mEq/L (21-32); Cholesterol 140 mg/dL (100-200); Creatinine 1 0.77 mg/dl (0.55-1.30); EST GLOMERULAR FILTRATION RATE > 60 ML/MIN; Glucose 111 MG/DL (70-110); HDL CHOLESTEROL 41 mg/dL (35-60); LDL, DIRECT 87 mg/dL (5-99); Potassium 3.8 mEq/L (3.5-5.1); Risk Ratio 3.4; SGOT/AST 30 U/L (15-37); SGPT/ALT 26 U/L (12-78); SODIUM 143 mEq/L (136-145); TRIGLYCERIDE 69 mg/dL (30-200); Total Protein 6.6 gm/dL (6.4-8.2)
[2017-12-14] MEDS ORDERED: MEDICATION INTERVENTION MC SCH (09:30)
[2017-12-14] MEDS: Neurontin 400 MG PO SCH (09:37)
[2017-12-14] MEDS: Haldol 5 MG PO SCH (09:37)
[2017-12-14] MEDS ORDERED: FLUCELVAX QUAD 2017-2018 SYR IM ONE (10:00)
[2017-12-14] MEDS ORDERED: ZOLOFT 50 MG TABLET PO SCH (10:00)
[2017-12-14] MEDS ORDERED: Ecotrin 325 MG PO SCH (10:00)
--- NOTE | 2017-12-14 10:19 | PCM.DCORD ---
- Discharge Discharge Date: 12/14/17 Disposition: Home, Self-Care Condition: Good Prescriptions: New Aspirin EC 325 mg [Ecotrin 325 MG] 325 mg PO DAILY #30 tablet.ec Continue Trazodone HCl 150 mg PO HS Prazosin HCl 10 mg PO HS Sertraline HCl [Zoloft] 100 mg PO DAILY Gabapentin 400 mg [Neurontin 400 MG] 400 mg PO TID Haloperidol 5 mg [Haldol 5 MG] 5 mg PO TID Instructions: Chest Pain Follow up with: REECE WEINBERG [Primary Care Provider] - 1 Week Forms: Discharge Instructions
[2017-12-14 10:24] VITALS: BP 114/65; PULSE 92; O2SAT 99
[2017-12-14] MEDS ORDERED: PRAZOSIN HCL 10 MG PO SCH (22:00)
--- NOTE | 2017-12-18 13:47 | SSS ---
ADMISSION DIAGNOSES: 1) Chest pain. 2) Schizophrenia. 3) Polysubstance abuse. DISCHARGE DIAGNOSES: 1) CHEST PAIN. 2) SCHIZOPHRENIA. 3) POLYSUBSTANCE ABUSE. HISTORY OF PRESENT ILLNESS: This is a 37 year old patient without a physician in the local area who presented to the emergency department complaining of chest pain. She reports to me today that it was sharp and caused her to have shortness of breath. She denies having chest pain in the past. She had done methamphetamine the night before and then was drinking [employer] drinks the morning that the chest pain started. She reports her chest pain is completely gone now. She is feeling well and would like to go home. Her nurse notes that she has refused all of her a.m. medications. The patient reports that she usually smokes two packs per day of cigarettes and has cut back on this. She reports she does not plan on using methamphetamine again. REVIEW OF SYSTEMS: No chest pain. No shortness of breath. No abdominal pain. No nausea or vomiting. No lower extremity edema. No rashes. No fever. PAST MEDICAL HISTORY: Schizophrenia, polysubstance abuse, tobacco abuse. PAST SURGICAL HISTORY: Cholecystectomy. Tubal ligation. MEDICATIONS: Gabapentin 400 mg p.o. t.i.d., Haldol 5 mg t.i.d., Prazosin 10 mg p.o. q.h.s., Sertraline 100 mg p.o. daily, trazodone 150 mg p.o. q.h.s. ALLERGIES: CEFACLOR, CODEINE, OXYCODONE, PENICILLIN. SOCIAL HISTORY: She is and lives with her . She reports that she is not able to work. She smokes two packs per day of cigarettes and has used methamphetamine in the past. FAMILY HISTORY: Her mother has mental health problems. Her father is and she does not know if he had any major health problems. PHYSICAL EXAMINATION: VITAL SIGNS: Temperature current 98.4F, temperature max 99.1F, heart rate 88 to 113 currently 88, respiratory rate 18 to 22, blood pressure 110 to 117 over 68 to 76. Oxygen saturation 91 to 94% on room air. GENERAL: The patient is a pleasant lady sitting up in bed in no acute distress. CVS: She has a regular rate and rhythm. No murmurs, gallops or rubs are appreciated. CHEST: Clear to auscultation bilaterally. No crackles or wheezes. ABDOMEN: Soft, nontender. SKIN: Warm, dry and intact. EXTREMITIES: No clubbing, cyanosis or edema. HOSPITAL COURSE: 1) CHEST PAIN: She has ruled out for acute myocardial infarction with serial troponins that have been negative. Her EKG is normal. There have been no events on telemetry. She was continued on aspirin daily and will have her continue this as an outpatient. The patient was instructed that she should see Dr. Waggoner and consider having a stress test done on her heart. 2) POLYSUBSTANCE ABUSE: The patient was counseled that she should quit using methamphetamines but she said is going to and that she should think about quitting using tobacco. 3) SCHIZOPHRENIA: She was continued on her home medications while she was here. She has a psychiatrist that she follows up with as an outpatient. DISPOSITION: The patient was discharged to home in good condition. FOLLOW UP: She is to follow up with her primary care doctor, Dr. Waggoner. DISCHARGE MEDICATIONS: She is to resume all of her home medications and also take aspirin 325 mg p.o. daily.
== END 2017-12-14 11:25 | disposition home or self-care (01) ==
LOC: ED 15:29 → MED SURG 18:25
PROVIDERS: ADMIT Internal Medicine; ATTEND Internal Medicine
DX: R07.9 Chest pain, unspecified (principal); F20.9 Schizophrenia, unspecified; F19.10 Other psychoactive substance abuse, uncomplicated; F17.200 Nicotine dependence, unspecified, uncomplicated; Z79.899 Other long term (current) drug therapy
CPT/HCPCS: 36000; 36415; 71046; 80053; 80061; 80307; 81000; 83605; 83690; 83721; 84484; 85025; 87086; 93005; 93041; 93268; 96360; 96374; 99285; G0378; J2060; A9270-GY

== ENCOUNTER 2018-11-24 11:19 | Observation (INO) | payer SELFPAY ==
[2018-11-24] MEDS ORDERED: BACIGUENT PACKET TP ONE (11:26)
--- NOTE | 2018-11-24 11:33 | ERPHSYRPT ---
- History of Present Illness Time Seen by Provider: 11/24/18 11:28 Source: patient Exam Limitations: clinical condition, other (Patient with paranoid idetion, anxious) Physician History: 38-year-old obese white female with history of migraines, anxiety, ADD, bipolar , schizophrenia, PTSD, substance abuse. Brought by medics with complaints that the patient has been taking crystal meth and has cut both wrists patient with the several superficial lacerations to both wrists not actively bleeding at this time. Patient is paranoid states were all going to thinks that "they might hurt me ". Past medical history includes migraines, anxiety, ADD, bipolar, schizophrenia, PTSD, substance abuse. Past surgical history includes cholecystectomy and tubal ligation. Timing/Duration: today Severity: moderate Modifying Factors: Improves With: other (patient apparently taking crystal meth) Associated Symptoms: other (patient anxious with paranoid ideation and superficial lacerations to both wrists), No nausea, No vomiting, No abdominal pain, No shortness of breath, No heartburn, No diaphoresis, No cough, No chills , No chest pain, No fever, No headaches, No loss of appetite, No malaise, No rash, No syncope, No seizure, No weakness Allergies/Adverse Reactions: cefaclor [From Ceclor] Allergy (Verified 12/13/17 16:35) codeine Allergy (Verified 12/13/17 16:35) oxycodone Allergy (Verified 12/13/17 16:35) Penicillins Allergy (Verified 12/13/17 16:35) Home Medications: Prazosin HCl 10 mg PO HS 01/23/17 [History] Trazodone HCl 150 mg PO HS 01/23/17 [History] Gabapentin 400 mg [Neurontin 400 MG] 400 mg PO TID 03/29/17 [History] Sertraline HCl [Zoloft] 100 mg PO DAILY 03/29/17 [History] Haloperidol 5 mg [Haldol 5 MG] 5 mg PO TID 12/13/17 [History] Hx Tetanus, Diphtheria Vaccination/Date Given: Yes (up to date) Hx Influenza Vaccination/Date Given: Yes Hx Pneumococcal Vaccination/Date Given: No - Review of Systems Constitutional: No Symptoms Eyes: No Symptoms Ears, Nose, & Throat: No Symptoms Respiratory: No Cough, No Dyspnea Cardiac: No Chest Pain, No Edema, No Syncope Abdominal/Gastrointestinal: No Abdominal Pain, No Nausea, No Vomiting, No Diarrhea Genitourinary Symptoms: No Dysuria Musculoskeletal: No Back Pain, No Neck Pain Skin: Other (multiple superficial lacerations to both wrists) Neurological: No Dizziness, No Focal Weakness, No Sensory Changes Psychological: Drug Abuse, Anxiety, Suicidal Ideations, Other (Paranoid ideation ) Endocrine: No Symptoms All Other Systems: Reviewed and Negative - Past Medical History Pertinent Past Medical History: Yes Neurological History: Migraines ENT History: No Pertinent History Cardiac History: No Pertinent History Respiratory History: No Pertinent History Endocrine Medical History: No Pertinent History Musculoskeletal History: No Pertinent History GI Medical History: No Pertinent History History: No Pertinent History Psycho-Social History: Anxiety, Attention Deficit Disorder, Bipolar, Other Other Medical History: schiozophrenia, split personalities - Past Surgical History Past Surgical History: Yes Gastrointestinal: Cholecystectomy Female Surgical History: Tubal Ligation - Social History Smoking Status: Current every day smoker How long have you smoked: 25 Exposure to second hand smoke: No Drug Use: methamphetamines Patient Lives Alone: No - Nursing Vital Signs Nursing Vital Signs: Initial Vital Signs Temperature 98.6 F 11/24/18 11:21 Pulse Rate 152 H 11/24/18 11:21 Respiratory Rate 24 11/24/18 11:21 Blood Pressure 82/62 11/24/18 11:21 O2 Sat by Pulse Oximetry 94 L 11/24/18 11:21 Pain Scale Pain Intensity 0 - Physical Exam General Appearance: moderate distress, alert, anxiety, other (anxious) Eye Exam: PERRL/EOMI, eyes nml inspection Ears, Nose, Throat Exam: normal ENT inspection, TMs normal, pharynx normal, moist mucous membranes Neck Exam: normal inspection, non-tender, supple, full range of motion Respiratory Exam: normal breath sounds, lungs clear, No respiratory distress Cardiovascular Exam: regular rate/rhythm, normal heart sounds, normal peripheral pulses, capillary refill <2 sec Gastrointestinal/Abdomen Exam: soft, normal bowel sounds, No tenderness, No mass Back Exam: normal inspection, normal range of motion, No CVA tenderness, No vertebral tenderness Extremity Exam: normal range of motion, other (multiple superficial lacerations both wrists) Neurologic Exam: alert, oriented x 3, anchorer II-XII nml as tested, agitation, other (Paranoid ideation), No motor deficits, No sensory deficit Skin Exam: other (multiple superficial lacerations both wrists) Lymphatic Exam: No adenopathy SpO2 Interpretation: normal - Course Nursing assessment & vital signs reviewed: Yes EKG Interpreted by Me: RATE (142 bpm), Sinus Tach, NORMAL AXIS, Other (EKG: Sinus tachycardia, 142 bpm, normal axis, no acute ST or T wave changes, compared to December 14, 2017) Ordered Tests: Active Orders 24 hr Category Date Time Status EKG-ER Only STAT Care 11/24/18 11:26 Active IV Insertion STAT Care 11/24/18 11:26 Active Pulse Oximetry (ED) STAT Care 11/24/18 11:26 Active Wound Care STAT Care 11/24/18 11:26 Active ACETAMINOPHEN Stat Lab 11/24/18 11:40 Completed CBC W DIFF Stat Lab 11/24/18 11:40 Completed CK-Creatinine Phosphokinase Stat Lab 11/24/18 11:40 Completed CMP Stat Lab 11/24/18 11:40 Completed ETHYL ALCOHOL Stat Lab 11/24/18 11:40 Completed HCG QUALITATIVE,SERUM Stat Lab 11/24/18 11:40 Completed SALICYLATE Stat Lab 11/24/18 11:40 Completed TROPONIN Q3H Lab 11/24/18 11:40 Completed TROPONIN Q3H Lab 11/24/18 14:45 Ordered TROPONIN Q3H Lab 11/24/18 17:45 Ordered TROPONIN Q3H Lab 11/24/18 20:45 Ordered TROPONIN Q3H Lab 11/24/18 23:45 Ordered UA W/RFX UR CULTURE Stat Lab 11/24/18 12:07 Completed Urine Triage Profile Stat Lab 11/24/18 12:07 Completed Transfer Order Routine Transfer 11/24/18 Ordered Medication Summary Discontinued Medications Generic Name Dose Route Start Last Admin Trade Name Freq PRN Reason Stop Dose Admin Bacitracin Zinc 0.9 gm 11/24/18 11:26 11/24/18 11:48 Baciguent Packet TP 11/24/18 11:27 0.9 gm STAT ONE Administration Sodium Chloride 1,000 mls @ 999 mls/hr 11/24/18 11:56 11/24/18 13:32 Sodium Chloride 0.9% 1000 Ml IV 11/24/18 12:56 Infused .Q1H1M STA Infusion Sodium Chloride Confirm 11/24/18 11:57 Sodium Chloride 0.9% 1000 Ml Administered 11/24/18 11:58 Dose 1,000 mls @ ud .ROUTE .STK-MED ONE Sodium Chloride 1,000 mls @ 999 mls/hr 11/24/18 12:52 11/24/18 13:08 Sodium Chloride 0.9% 1000 Ml IV 11/24/18 13:52 999 mls/hr .Q1H1M STA Administration Sodium Chloride Confirm 11/24/18 13:06 Sodium Chloride 0.9% 1000 Ml Administered 11/24/18 13:07 Dose 1,000 mls @ ud .ROUTE .STK-MED ONE Lorazepam 2 mg 11/24/18 11:35 11/24/18 11:49 Ativan 2 Mg/1 Ml Vial IM 11/24/18 11:36 Not Given STAT ONE Lorazepam Confirm 11/24/18 11:36 Ativan 2 Mg/1 Ml Vial Administered 11/24/18 11:37 Dose 2 mg .ROUTE .STK-MED ONE Lorazepam 1 mg 11/24/18 11:47 11/24/18 11:49 Ativan 2 Mg/1 Ml Vial IV 11/24/18 11:48 1 mg STAT ONE Administration Potassium Chloride 20 meq 11/24/18 12:53 11/24/18 13:08 Klor Con 10 Meq PO 11/24/18 12:54 20 meq STAT ONE Administration Potassium Chloride Confirm 11/24/18 13:06 Klor Con 10 Meq Administered 11/24/18 13:07 Dose 20 meq PO .STK-MED ONE Potassium Chloride 20 meq 11/24/18 14:08 11/24/18 14:12 Klor Con 10 Meq PO 11/24/18 14:09 20 meq STAT ONE Administration Potassium Chloride Confirm 11/24/18 14:10 Klor Con 10 Meq Administered 11/24/18 14:11 Dose 20 meq PO .STK-MED ONE Lab/Rad Data: Laboratory Result Diagrams 11/24/18 11:40 11/24/18 11:40 Laboratory Results 11/24/18 11/24/18 11/24/18 Range/Units 12:07 12:07 11:40 WBC (4.0-10.5) K/mm3 RBC (4.1-5.4) M/mm3 Hgb (12.0-16.0) gm/dl Hct (35-47) % MCV (78-100) fl MCH (26-32) pg MCHC (32-36) g/dl RDW (11.5-14.0) % Plt Count (150-450) K/mm3 MPV (6-9.5) fl Gran % (36.0-66.0) % Eos # (Auto) (0-0.5) Absolute Lymphs (auto) (1.0-4.6) Absolute Monos (auto) (0.0-1.3) Lymphocytes % (24.0-44.0) % Monocytes % (0.0-12.0) % Eosinophils % (0.00-5.0) % Basophils % (0.0-0.4) % Absolute Granulocytes (1.4-6.9) Basophils # (0-0.4) Sodium (137-145) mmol/L Potassium (3.5-5.1) mmol/L Chloride (98-107) mmol/L Carbon Dioxide (22-30) mmol/L Anion Gap (5-15) MEQ/L BUN (7-17) mg/dL Creatinine (0.52-1.04) mg/dL Estimated GFR ML/MIN Glucose (74-106) mg/dL Calcium (8.4-10.2) mg/dL Total Bilirubin (0.2-1.3) mg/dL AST (14-36) U/L ALT (0-35) U/L Alkaline Phosphatase (38-126) U/L Creatine Kinase (30-135) U/L Troponin I < 0.012 (0.000-0.034) ng/mL Serum Total Protein (6.3-8.2) g/dL Albumin (3.5-5.0) g/dL Serum , Qual (Negative) Urine Color YELLOW (YELLOW) Urine Appearance CLOUDY (CLEAR) Urine pH 5.0 (5-6) Ur Specific [place] 1.024 (1.005-1.025) Urine Protein 30 (Negative) Urine Ketones SMALL (NEGATIVE) Urine Blood NEGATIVE (0-5) Jorge/ul Urine Nitrite NEGATIVE (NEGATIVE) Urine Bilirubin NEGATIVE (NEGATIVE) Urine Urobilinogen 4 (0-1) mg/dL Ur Leukocyte Esterase NEGATIVE (NEGATIVE) Urine WBC (Auto) 3-5 (0-5) /HPF Urine RBC (Auto) NONE (0-2) /HPF U Hyaline Cast (Auto) 26-50 (0-2) /LPF U Epithel Cells (Auto) RARE (FEW) /HPF Urine Bacteria (Auto) FEW (NEGATIVE) /HPF Urine Mucus (Auto) MODERATE (NEGATIVE) /HPF Urine Culture Reflexed NO (NO) Urine Glucose >=500 (NEGATIVE) mg/dL Salicylates (2-20) mg/dL Urine Opiates Level NEGATIVE (NEGATIVE) Ur Methadone NEGATIVE (NEGATIVE) Acetaminophen (10-30) ug/ml Urine Barbiturates NEGATIVE (NEGATIVE) Ur Phencyclidine (PCP) NEGATIVE (NEGATIVE) Urine Amphetamine POSITIVE (NEGATIVE) U Benzodiazepine Level NEGATIVE (NEGATIVE) Urine Cocaine NEGATIVE (NEGATIVE) Urine Marijuana (THC) NEGATIVE (NEGATIVE) Ethyl Alcohol (0-10) mg/dL 11/24/18 11/24/18 11/24/18 Range/Units 11:40 11:40 11:40 WBC (4.0-10.5) K/mm3 RBC (4.1-5.4) M/mm3 Hgb (12.0-16.0) gm/dl Hct (35-47) % MCV (78-100) fl MCH (26-32) pg MCHC (32-36) g/dl RDW (11.5-14.0) % Plt Count (150-450) K/mm3 MPV (6-9.5) fl Gran % (36.0-66.0) % Eos # (Auto) (0-0.5) Absolute Lymphs (auto) (1.0-4.6) Absolute Monos (auto) (0.0-1.3) Lymphocytes % (24.0-44.0) % Monocytes % (0.0-12.0) % Eosinophils % (0.00-5.0) % Basophils % (0.0-0.4) % Absolute Granulocytes (1.4-6.9) Basophils # (0-0.4) Sodium 135 L (137-145) mmol/L Potassium 3.3 L (3.5-5.1) mmol/L Chloride 102 (98-107) mmol/L Carbon Dioxide 17 L (22-30) mmol/L Anion Gap 20.5 H (5-15) MEQ/L BUN 14 (7-17) mg/dL Creatinine 0.91 (0.52-1.04) mg/dL Estimated GFR > 60.0 ML/MIN Glucose 346 H (74-106) mg/dL Calcium 9.5 (8.4-10.2) mg/dL Total Bilirubin 0.70 (0.2-1.3) mg/dL AST 38 H (14-36) U/L ALT 48 H (0-35) U/L Alkaline Phosphatase 70 (38-126) U/L Creatine Kinase 59 (30-135) U/L Troponin I (0.000-0.034) ng/mL Serum Total Protein 7.6 (6.3-8.2) g/dL Albumin 4.3 (3.5-5.0) g/dL Serum , Qual NEGATIVE (Negative) Urine Color (YELLOW) Urine Appearance (CLEAR) Urine pH (5-6) Ur Specific [place] (1.005-1.025) Urine Protein (Negative) Urine Ketones (NEGATIVE) Urine Blood (0-5) Jorge/ul Urine Nitrite (NEGATIVE) Urine Bilirubin (NEGATIVE) Urine Urobilinogen (0-1) mg/dL Ur Leukocyte Esterase (NEGATIVE) Urine WBC (Auto) (0-5) /HPF Urine RBC (Auto) (0-2) /HPF U Hyaline Cast (Auto) (0-2) /LPF U Epithel Cells (Auto) (FEW) /HPF Urine Bacteria (Auto) (NEGATIVE) /HPF Urine Mucus (Auto) (NEGATIVE) /HPF Urine Culture Reflexed (NO) Urine Glucose (NEGATIVE) mg/dL Salicylates < 1.0 L (2-20) mg/dL Urine Opiates Level (NEGATIVE) Ur Methadone (NEGATIVE) Acetaminophen < 10 L (10-30) ug/ml Urine Barbiturates (NEGATIVE) Ur Phencyclidine (PCP) (NEGATIVE) Urine Amphetamine (NEGATIVE) U Benzodiazepine Level (NEGATIVE) Urine Cocaine (NEGATIVE) Urine Marijuana (THC) (NEGATIVE) Ethyl Alcohol < 10 (0-10) mg/dL 11/24/18 Range/Units 11:40 WBC 11.4 H (4.0-10.5) K/mm3 RBC 4.14 (4.1-5.4) M/mm3 Hgb 12.6 (12.0-16.0) gm/dl Hct 38.2 (35-47) % MCV 92.3 (78-100) fl MCH 30.4 (26-32) pg MCHC 33.0 (32-36) g/dl RDW 12.8 (11.5-14.0) % Plt Count 274 (150-450) K/mm3 MPV 10.7 H (6-9.5) fl Gran % 87.3 H (36.0-66.0) % Eos # (Auto) 0.02 (0-0.5) Absolute Lymphs (auto) 1.05 (1.0-4.6) Absolute Monos (auto) 0.34 (0.0-1.3) Lymphocytes % 9.2 L (24.0-44.0) % Monocytes % 3.0 (0.0-12.0) % Eosinophils % 0.2 (0.00-5.0) % Basophils % 0.3 (0.0-0.4) % Absolute Granulocytes 9.94 H (1.4-6.9) Basophils # 0.03 (0-0.4) Sodium (137-145) mmol/L Potassium (3.5-5.1) mmol/L Chloride (98-107) mmol/L Carbon Dioxide (22-30) mmol/L Anion Gap (5-15) MEQ/L BUN (7-17) mg/dL Creatinine (0.52-1.04) mg/dL Estimated GFR ML/MIN Glucose (74-106) mg/dL Calcium (8.4-10.2) mg/dL Total Bilirubin (0.2-1.3) mg/dL AST (14-36) U/L ALT (0-35) U/L Alkaline Phosphatase (38-126) U/L Creatine Kinase (30-135) U/L Troponin I (0.000-0.034) ng/mL Serum Total Protein (6.3-8.2) g/dL Albumin (3.5-5.0) g/dL Serum , Qual (Negative) Urine Color (YELLOW) Urine Appearance (CLEAR) Urine pH (5-6) Ur Specific [place] (1.005-1.025) Urine Protein (Negative) Urine Ketones (NEGATIVE) Urine Blood (0-5) Jorge/ul Urine Nitrite (NEGATIVE) Urine Bilirubin (NEGATIVE) Urine Urobilinogen (0-1) mg/dL Ur Leukocyte Esterase (NEGATIVE) Urine WBC (Auto) (0-5) /HPF Urine RBC (Auto) (0-2) /HPF U Hyaline Cast (Auto) (0-2) /LPF U Epithel Cells (Auto) (FEW) /HPF Urine Bacteria (Auto) (NEGATIVE) /HPF Urine Mucus (Auto) (NEGATIVE) /HPF Urine Culture Reflexed (NO) Urine Glucose (NEGATIVE) mg/dL Salicylates (2-20) mg/dL Urine Opiates Level (NEGATIVE) Ur Methadone (NEGATIVE) Acetaminophen (10-30) ug/ml Urine Barbiturates (NEGATIVE) Ur Phencyclidine (PCP) (NEGATIVE) Urine Amphetamine (NEGATIVE) U Benzodiazepine Level (NEGATIVE) Urine Cocaine (NEGATIVE) Urine Marijuana (THC) (NEGATIVE) Ethyl Alcohol (0-10) mg/dL - Progress Progress: improved Progress Note: 11/24/18 13:57 38-year-old white female with history of migraines, anxiety, ADD, bipolar, schizophrenia, PTSD, substance abuse. Patient arrives to the patient was extremely agitated had a heart rate of 150 on arrival she had apparently been using methamphetamines. The patient had apparently expressed to the police that she wanted to she said why don't you just shoot me in the head. Patient has bilateral low multiple superficial wrist lacerations. Patient was given Ativan 1 mg IV patient was noted to have a blood pressure running into the 80s at times this is slowly come up and her heart rate has come down with receiving IV normal saline.. Patient was also given potassium 20 mEq orally. Patient does seem to be somewhat somnolent at this time and is felt that patient warrants further observation in the ICU. She will require a [facility] consult when patient appears to be somewhat more stable. Patient's EKG on arrival sinus tachycardia 1 42 bpm normal axis no acute ST or T wave changes are noted Patient's urine drug screen is positive for amphetamines Patient's chemistry sodium 135 potassium 3.3 chloride 102 CO2 is 17 BUN and creatinine are 14 and 0.91 respectively glucose is 346 and an gap is elevated at 20.5 Acetaminophen level is less than 10 and salicylate level is less than 1.0 alcohol level is less than 10 Patient's CBC White blood cell 11.4 hemoglobin 12.6 hematocrit 38.2 platelets 274 Patient's troponin less than 0.012 CK is 59 I've discussed the patient's case with Dr. Ireland Will go ahead and place patient on observation ICU continue telemetry continue IV fluids will give patient an additional 20 mEq of potassium chloride orally Will order [facility] consult on the patient. Impression 1 substance abuse. 2. Suicidal ideation. 3. Suicidal gesture with bilateral wrist lacerations (superficial) 4 hyperglycemia. 11/24/18 14:13 Patient given an additional 20 mEq of potassium chloride. - Departure Time of Disposition: 14:02 Departure Disposition: Observation Clinical Impression: Substance abuse, Suicidal ideation, bilateral wrist lacerations(superficial), Hyperglycemia, Paranoid ideation Suicide gesture Qualifiers: Encounter type: initial encounter Qualified Code(s): X83.8XXA - Intentional self-harm by other specified means, initial encounter Condition: Fair Critical Care Time: No Referrals: REECE WEINBERG [Primary Care Provider] -
[2018-11-24] MEDS ORDERED: Ativan 2 MG/1 ML VIAL IM ONE (11:35)
[2018-11-24] MEDS ORDERED: Ativan 2 MG/1 ML VIAL ONE (11:36)
[2018-11-24] MEDS ORDERED: Ativan 2 MG/1 ML VIAL IV ONE (11:47)
[2018-11-24 11:51] LABS: BASOPHIL % 0.3 % (0.0-0.4); Basophil (Absolute #) 0.03 (0-0.4); Eosinophil % 0.2 % (0.00-5.0); Eosinophil (Absolute #) 0.02 (0-0.5); Granulocyte Absolute (ANC) 9.94 (1.4-6.9); Granulocytes % 87.3 % (36.0-66.0); Hematocrit 38.2 % (35-47); Hemoglobin 12.6 gm/dl (12.0-16.0); Lymphocyte (Absolute #) 1.05 (1.0-4.6); Lymphocytes % 9.2 % (24.0-44.0); Mean Cell Volume 92.3 fl (78-100); Mean Corpuscular Hemoglobin 30.4 pg (26-32); Mean Platelet Volume 10.7 fl (6-9.5); Monocyte (Absolute #) 0.34 (0.0-1.3); Platelet Count 274 K/mm3 (150-450); Red Blood Count 4.14 M/mm3 (4.1-5.4); Red Cell Distribution Width 12.8 % (11.5-14.0); White Blood Count 11.4 K/mm3 (4.0-10.5)
[2018-11-24] MEDS ORDERED: Sodium Chloride 0.9% 1000 ML 1,000 ML IV STA ×2 (11:56→12:52)
[2018-11-24] MEDS ORDERED: Sodium Chloride 0.9% 1000 ML 1,000 ML ONE ×2 (11:57→13:06)
[2018-11-24 12:13] LABS: ALBUMIN 4.3 g/dL (3.5-5.0); ALKALINE PHOSPHATASE 70 U/L (38-126); ANION GAP 20.5 MEQ/L (5-15); BLOOD UREA NITROGEN 14 mg/dL (7-17); CHLORIDE 102 mmol/L (98-107); Calcium 9.5 mg/dL (8.4-10.2); Carbon Dioxide 17 mmol/L (22-30); Creatinine 1 0.91 mg/dL (0.52-1.04); Glucose 346 mg/dL (74-106); Potassium 3.3 mmol/L (3.5-5.1); SGOT/AST 38 U/L (14-36); SODIUM 135 mmol/L (137-145); Total Protein 7.6 g/dL (6.3-8.2)
[2018-11-24 12:27] LABS: Barbiturate,Urine NEGATIVE (NEGATIVE); Benzodiazepine,Urine NEGATIVE (NEGATIVE); Cocaine,Urine NEGATIVE (NEGATIVE); Methadone,Urine NEGATIVE (NEGATIVE); Opiate,Urine NEGATIVE (NEGATIVE); PCP,Urine NEGATIVE (NEGATIVE); THC,Urine NEGATIVE (NEGATIVE)
[2018-11-24 12:33] LABS: SGPT/ALT 48 U/L (0-35)
[2018-11-24 12:38] LABS: ACETAMINOPHEN < 10 ug/ml (10-30); ETHYL ALCOHOL < 10 mg/dL (0-10); SALICYLATE < 1.0 mg/dL (2-20)
[2018-11-24 12:42] LABS: Appearance CLOUDY (CLEAR); Bacteria FEW /HPF (NEGATIVE); Bilirubin NEGATIVE (NEGATIVE); Blood NEGATIVE Ery/ul (0-5); Epithelial Cells RARE /HPF (FEW); Glucose >=500 mg/dL (NEGATIVE); Hyaline Casts 26-50 /LPF (0-2); Ketones SMALL (NEGATIVE); Leukocyte Esterase NEGATIVE (NEGATIVE); Mucus MODERATE /HPF (NEGATIVE); Nitrite NEGATIVE (NEGATIVE); Protein,Urine Dip 30 (Negative); Specific Gravity 1.024 (1.005-1.025); Urobilinogen 4 mg/dL (0-1)
[2018-11-24] MEDS ORDERED: Klor Con 10 MEQ PO ONE ×4 (12:53→14:10)
[2018-11-24 12:57] LABS: Amphetamine,Urine POSITIVE (NEGATIVE)
[2018-11-24] MEDS ORDERED: NovoLOG Insulin SQ PRN (14:53)
[2018-11-24] MEDS: Sodium Chloride 0.9% 1000 ML 1,000 ML IV SCH (17:51)
[2018-11-24] MEDS ORDERED: Robitussin-Dm Syrup PO PRN (23:20)
[2018-11-25] MEDS: Sodium Chloride 0.9% 1000 ML 1,000 ML IV SCH ×2 (00:34→07:52)
[2018-11-25 05:41] LABS: BASOPHIL % 0.2 % (0.0-0.4); Basophil (Absolute #) 0.02 (0-0.4); Eosinophil % 0.9 % (0.00-5.0); Eosinophil (Absolute #) 0.09 (0-0.5); Granulocytes % 74.3 % (36.0-66.0); Hematocrit 33.2 % (35-47); Hemoglobin 10.6 gm/dl (12.0-16.0); Lymphocyte (Absolute #) 1.76 (1.0-4.6); Lymphocytes % 18.2 % (24.0-44.0); Mean Cell Volume 94.3 fl (78-100); Mean Corpuscular Hemoglobin 30.1 pg (26-32); Mean Corpuscular Hgb Concent. 31.9 g/dl (32-36); Mean Platelet Volume 10.5 fl (6-9.5); Monocyte (Absolute #) 0.62 (0.0-1.3); Monocytes % 6.4 % (0.0-12.0); Platelet Count 220 K/mm3 (150-450); Red Blood Count 3.52 M/mm3 (4.1-5.4); Red Cell Distribution Width 13.1 % (11.5-14.0); White Blood Count 9.7 K/mm3 (4.0-10.5)
[2018-11-25 05:59] LABS: ALBUMIN 3.1 g/dL (3.5-5.0); ALKALINE PHOSPHATASE 55 U/L (38-126); ANION GAP 10.7 MEQ/L (5-15); BLOOD UREA NITROGEN 9 mg/dL (7-17); CHLORIDE 108 mmol/L (98-107); Calcium 8.1 mg/dL (8.4-10.2); Carbon Dioxide 22 mmol/L (22-30); Creatinine 1 0.57 mg/dL (0.52-1.04); Glucose 136 mg/dL (74-106); Potassium 4.3 mmol/L (3.5-5.1); SGOT/AST 30 U/L (14-36); SGPT/ALT 34 U/L (0-35); SODIUM 137 mmol/L (137-145); Total Protein 5.9 g/dL (6.3-8.2)
--- NOTE | 2018-11-25 08:42 | PCM.HP ---
History of Present Illness - Chief Complaint Chief Complaint: suicidal ideation History of Present Illness: is a 38-year-old obese white female with history of migraines, anxiety, ADD, bipolar, schizophrenia, PTSD, substance abuse. Brought by medics with complaints that the patient has been taking crystal methamphetamine and has cut both wrists patient with the several superficial lacerations to both wrists not actively bleeding at this time. Patient is paranoid states were all going to thinks that "they might hurt me ". - Review of Systems Constitutional: No Fever, No Chills Eyes: No Symptoms Ears, Nose, & Throat: No Symptoms Respiratory: No Cough, No Short Of Breath Cardiac: No Chest Pain, No Edema, No Syncope Abdominal/Gastrointestinal: No Abdominal Pain, No Nausea, No Vomiting, No Diarrhea Genitourinary Symptoms: No Dysuria Musculoskeletal: No Back Pain, No Neck Pain Skin: No Rash Neurological: No Dizziness, No Focal Weakness, No Sensory Changes Psychological: No Symptoms Endocrine: No Symptoms Hematologic/Lymphatic: No Symptoms Immunological/Allergic: No Symptoms Medications & Allergies Home Medications: Home Medication List No Reportable Medications [No Reported Medications] 11/24/18 [History Confirmed 11/24/18] Allergies/Adverse Reactions: Allergies Allergy/AdvReac Type Severity Reaction Status Date / Time cefaclor [From [facility]] Allergy Verified 11/24/18 15:13 codeine Allergy Verified 11/24/18 15:13 oxycodone Allergy Verified 11/24/18 15:13 Penicillins Allergy Verified 11/24/18 15:13 - Past Medical History Past Medical History: Yes Neurological History: Migraines ENT History: No Pertinent History Cardiac History: No Pertinent History Respiratory History: No Pertinent History Endocrine Medical History: No Pertinent History Musculoskelatal History: No Pertinent History GI Medical History: No Pertinent History History: No Pertinent History Pyscho-Social History: Anxiety, Attention Deficit Disorder, Bipolar, Other Comment: schiozophrenia, 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 above hx provided per spouse - Female History Hx Last Menstrual Period: now Are you now?: No - Past Surgical History Past Surgical History: Yes Neuro Surgical History: No Pertinent History Cardiac History: No Pertinent History Respiratory Surgery: No Pertinent History GI Surgical History: Cholecystectomy Genitourinary Surgical Hx: No Pertinent History Female Surgical History: Tubal Ligation - Social History Smoking Status: Current every day smoker How long have you smoked: 25 Exposure to second hand smoke: Yes Alcohol: None Drug Use: methamphetamines - Physical Exam Vital Signs: Vital Signs - 24 hr Temp Pulse Resp BP Pulse Ox 11/25/18 07:43 94 H 11/25/18 07:16 98.7 F 98 H 20 96/64 99 11/25/18 04:00 96 H 11/25/18 03:53 98.7 F 105 H 17 104/64 97 11/25/18 02:00 105 H 17 106/59 98 11/25/18 00:01 105 H 11/24/18 22:12 119/70 11/24/18 21:00 96/62 11/24/18 20:00 103 H 11/24/18 19:33 98.4 F 103 H 17 84/67 100 11/24/18 19:30 96 11/24/18 16:21 97.8 F 64 20 84/52 92 L 11/24/18 16:00 90 11/24/18 15:56 97.8 F 68 20 94/55 95 11/24/18 15:00 92 L 11/24/18 14:42 97.8 F 68 20 94/55 93 L 11/24/18 14:15 117 H 16 95/46 95 11/24/18 13:44 126 H 16 96/51 94 L 11/24/18 13:13 121 H 16 86/53 92 L 11/24/18 12:30 120 H 16 82/49 98 11/24/18 12:08 149 H 20 80/62 95 11/24/18 11:56 95 11/24/18 11:50 94 L 11/24/18 11:21 98.6 F 152 H 24 82/62 94 L Oxygen-Last 24 hours O2 Percentage 4 Liters = 36% O2 Percentage 4 Liters = 36% O2 Percentage 3 Liters = 32% O2 Percentage 4 Liters = 36% O2 Percentage 2 Liters = 28% O2 Percentage 2 Liters = 28% O2 Percentage 2 Liters = 28% General Appearance: no apparent distress, alert Neurologic Exam: alert, oriented x 3, cooperative, normal mood/affect, nml cerebellar function, nml station & gait, sensation nml, No motor deficits Eye Exam: PERRL/EOMI, eyes nml inspection Ears, Nose, Throat Exam: normal ENT inspection, TMs normal, pharynx normal, moist mucous membranes Neck Exam: normal inspection, non-tender, supple, full range of motion Respiratory Exam: normal breath sounds, lungs clear, No respiratory distress Cardiovascular Exam: regular rate/rhythm, normal heart sounds, normal peripheral pulses Gastrointestinal/Abdomen Exam: soft, normal bowel sounds, No tenderness, No mass Back Exam: normal inspection, normal range of motion, No CVA tenderness, No vertebral tenderness Extremity Exam: normal inspection, normal range of motion, pelvis stable Skin Exam: normal color, warm, dry, No rash Lymphatic Exam: No adenopathy Results - Labs Lab/Micro Results: Accuchecks Date 11/25/18 Date 11/25/18 Date 11/25/18 Date 11/24/18 Date 11/24/18 Time 04:00 Time 04:00 Time 00:00 Time 20:18 Time 17:03 Accucheck Value: 146 Accucheck Value: 141 Accucheck Value: 136 Accucheck Value: 131 Accucheck Value: 151 Lab Results-Last 24 Hours 11/24/18 11/24/18 11/24/18 Range/Units 11:40 11:40 11:40 WBC 11.4 H (4.0-10.5) K/mm3 RBC 4.14 (4.1-5.4) M/mm3 Hgb 12.6 (12.0-16.0) gm/dl Hct 38.2 (35-47) % MCV 92.3 (78-100) fl MCH 30.4 (26-32) pg MCHC 33.0 (32-36) g/dl RDW 12.8 (11.5-14.0) % Plt Count 274 (150-450) K/mm3 MPV 10.7 H (6-9.5) fl Gran % 87.3 H (36.0-66.0) % Eos # (Auto) 0.02 (0-0.5) Absolute Lymphs (auto) 1.05 (1.0-4.6) Absolute Monos (auto) 0.34 (0.0-1.3) Lymphocytes % 9.2 L (24.0-44.0) % Monocytes % 3.0 (0.0-12.0) % Eosinophils % 0.2 (0.00-5.0) % Basophils % 0.3 (0.0-0.4) % Absolute Granulocytes 9.94 H (1.4-6.9) Basophils # 0.03 (0-0.4) Sodium 135 L (137-145) mmol/L Potassium 3.3 L (3.5-5.1) mmol/L Chloride 102 (98-107) mmol/L Carbon Dioxide 17 L (22-30) mmol/L Anion Gap 20.5 H (5-15) MEQ/L BUN 14 (7-17) mg/dL Creatinine 0.91 (0.52-1.04) mg/dL Estimated GFR > 60.0 ML/MIN Glucose 346 H (74-106) mg/dL Calcium 9.5 (8.4-10.2) mg/dL Total Bilirubin 0.70 (0.2-1.3) mg/dL AST 38 H (14-36) U/L ALT 48 H (0-35) U/L Alkaline Phosphatase 70 (38-126) U/L Creatine Kinase (30-135) U/L Troponin I (0.000-0.034) ng/mL Serum Total Protein 7.6 (6.3-8.2) g/dL Albumin 4.3 (3.5-5.0) g/dL Serum , Qual NEGATIVE (Negative) Urine Color (YELLOW) Urine Appearance (CLEAR) Urine pH (5-6) Ur Specific [place] (1.005-1.025) Urine Protein (Negative) Urine Ketones (NEGATIVE) Urine Blood (0-5) Jorge/ul Urine Nitrite (NEGATIVE) Urine Bilirubin (NEGATIVE) Urine Urobilinogen (0-1) mg/dL Ur Leukocyte Esterase (NEGATIVE) Urine WBC (Auto) (0-5) /HPF Urine RBC (Auto) (0-2) /HPF U Hyaline Cast (Auto) (0-2) /LPF U Epithel Cells (Auto) (FEW) /HPF Urine Bacteria (Auto) (NEGATIVE) /HPF Urine Mucus (Auto) (NEGATIVE) /HPF Urine Culture Reflexed (NO) Urine Glucose (NEGATIVE) mg/dL Salicylates < 1.0 L (2-20) mg/dL Urine Opiates Level (NEGATIVE) Ur Methadone (NEGATIVE) Acetaminophen < 10 L (10-30) ug/ml Urine Barbiturates (NEGATIVE) Ur Phencyclidine (PCP) (NEGATIVE) Urine Amphetamine (NEGATIVE) U Benzodiazepine Level (NEGATIVE) Urine Cocaine (NEGATIVE) Urine Marijuana (THC) (NEGATIVE) Ethyl Alcohol < 10 (0-10) mg/dL 11/24/18 11/24/18 11/24/18 Range/Units 11:40 11:40 12:07 WBC (4.0-10.5) K/mm3 RBC (4.1-5.4) M/mm3 Hgb (12.0-16.0) gm/dl Hct (35-47) % MCV (78-100) fl MCH (26-32) pg MCHC (32-36) g/dl RDW (11.5-14.0) % Plt Count (150-450) K/mm3 MPV (6-9.5) fl Gran % (36.0-66.0) % Eos # (Auto) (0-0.5) Absolute Lymphs (auto) (1.0-4.6) Absolute Monos (auto) (0.0-1.3) Lymphocytes % (24.0-44.0) % Monocytes % (0.0-12.0) % Eosinophils % (0.00-5.0) % Basophils % (0.0-0.4) % Absolute Granulocytes (1.4-6.9) Basophils # (0-0.4) Sodium (137-145) mmol/L Potassium (3.5-5.1) mmol/L Chloride (98-107) mmol/L Carbon Dioxide (22-30) mmol/L Anion Gap (5-15) MEQ/L BUN (7-17) mg/dL Creatinine (0.52-1.04) mg/dL Estimated GFR ML/MIN Glucose (74-106) mg/dL Calcium (8.4-10.2) mg/dL Total Bilirubin (0.2-1.3) mg/dL AST (14-36) U/L ALT (0-35) U/L Alkaline Phosphatase (38-126) U/L Creatine Kinase 59 (30-135) U/L Troponin I < 0.012 (0.000-0.034) ng/mL Serum Total Protein (6.3-8.2) g/dL Albumin (3.5-5.0) g/dL Serum , Qual (Negative) Urine Color YELLOW (YELLOW) Urine Appearance CLOUDY (CLEAR) Urine pH 5.0 (5-6) Ur Specific [place] 1.024 (1.005-1.025) Urine Protein 30 (Negative) Urine Ketones SMALL (NEGATIVE) Urine Blood NEGATIVE (0-5) Jorge/ul Urine Nitrite NEGATIVE (NEGATIVE) Urine Bilirubin NEGATIVE (NEGATIVE) Urine Urobilinogen 4 (0-1) mg/dL Ur Leukocyte Esterase NEGATIVE (NEGATIVE) Urine WBC (Auto) 3-5 (0-5) /HPF Urine RBC (Auto) NONE (0-2) /HPF U Hyaline Cast (Auto) 26-50 (0-2) /LPF U Epithel Cells (Auto) RARE (FEW) /HPF Urine Bacteria (Auto) FEW (NEGATIVE) /HPF Urine Mucus (Auto) MODERATE (NEGATIVE) /HPF Urine Culture Reflexed NO (NO) Urine Glucose >=500 (NEGATIVE) mg/dL Salicylates (2-20) mg/dL Urine Opiates Level (NEGATIVE) Ur Methadone (NEGATIVE) Acetaminophen (10-30) ug/ml Urine Barbiturates (NEGATIVE) Ur Phencyclidine (PCP) (NEGATIVE) Urine Amphetamine (NEGATIVE) U Benzodiazepine Level (NEGATIVE) Urine Cocaine (NEGATIVE) Urine Marijuana (THC) (NEGATIVE) Ethyl Alcohol (0-10) mg/dL 11/24/18 11/24/18 11/24/18 Range/Units 12:07 14:45 17:30 WBC (4.0-10.5) K/mm3 RBC (4.1-5.4) M/mm3 Hgb (12.0-16.0) gm/dl Hct (35-47) % MCV (78-100) fl MCH (26-32) pg MCHC (32-36) g/dl RDW (11.5-14.0) % Plt Count (150-450) K/mm3 MPV (6-9.5) fl Gran % (36.0-66.0) % Eos # (Auto) (0-0.5) Absolute Lymphs (auto) (1.0-4.6) Absolute Monos (auto) (0.0-1.3) Lymphocytes % (24.0-44.0) % Monocytes % (0.0-12.0) % Eosinophils % (0.00-5.0) % Basophils % (0.0-0.4) % Absolute Granulocytes (1.4-6.9) Basophils # (0-0.4) Sodium (137-145) mmol/L Potassium (3.5-5.1) mmol/L Chloride (98-107) mmol/L Carbon Dioxide (22-30) mmol/L Anion Gap (5-15) MEQ/L BUN (7-17) mg/dL Creatinine (0.52-1.04) mg/dL Estimated GFR ML/MIN Glucose (74-106) mg/dL Calcium (8.4-10.2) mg/dL Total Bilirubin (0.2-1.3) mg/dL AST (14-36) U/L ALT (0-35) U/L Alkaline Phosphatase (38-126) U/L Creatine Kinase (30-135) U/L Troponin I 0.025 (0.000-0.034) ng/mL Serum Total Protein (6.3-8.2) g/dL Albumin (3.5-5.0) g/dL Serum , Qual (Negative) Urine Color (YELLOW) Urine Appearance (CLEAR) Urine pH (5-6) Ur Specific [place] (1.005-1.025) Urine Protein (Negative) Urine Ketones (NEGATIVE) Urine Blood (0-5) Jorge/ul Urine Nitrite (NEGATIVE) Urine Bilirubin (NEGATIVE) Urine Urobilinogen (0-1) mg/dL Ur Leukocyte Esterase (NEGATIVE) Urine WBC (Auto) (0-5) /HPF Urine RBC (Auto) (0-2) /HPF U Hyaline Cast (Auto) (0-2) /LPF U Epithel Cells (Auto) (FEW) /HPF Urine Bacteria (Auto) (NEGATIVE) /HPF Urine Mucus (Auto) (NEGATIVE) /HPF Urine Culture Reflexed (NO) Urine Glucose (NEGATIVE) mg/dL Salicylates (2-20) mg/dL Urine Opiates Level NEGATIVE (NEGATIVE) Ur Methadone NEGATIVE (NEGATIVE) Acetaminophen < 10 L (10-30) ug/ml Urine Barbiturates NEGATIVE (NEGATIVE) Ur Phencyclidine (PCP) NEGATIVE (NEGATIVE) Urine Amphetamine POSITIVE (NEGATIVE) U Benzodiazepine Level NEGATIVE (NEGATIVE) Urine Cocaine NEGATIVE (NEGATIVE) Urine Marijuana (THC) NEGATIVE (NEGATIVE) Ethyl Alcohol (0-10) mg/dL 11/24/18 11/24/18 11/24/18 Range/Units 17:45 21:15 23:40 WBC (4.0-10.5) K/mm3 RBC (4.1-5.4) M/mm3 Hgb (12.0-16.0) gm/dl Hct (35-47) % MCV (78-100) fl MCH (26-32) pg MCHC (32-36) g/dl RDW (11.5-14.0) % Plt Count (150-450) K/mm3 MPV (6-9.5) fl Gran % (36.0-66.0) % Eos # (Auto) (0-0.5) Absolute Lymphs (auto) (1.0-4.6) Absolute Monos (auto) (0.0-1.3) Lymphocytes % (24.0-44.0) % Monocytes % (0.0-12.0) % Eosinophils % (0.00-5.0) % Basophils % (0.0-0.4) % Absolute Granulocytes (1.4-6.9) Basophils # (0-0.4) Sodium (137-145) mmol/L Potassium (3.5-5.1) mmol/L Chloride (98-107) mmol/L Carbon Dioxide (22-30) mmol/L Anion Gap (5-15) MEQ/L BUN (7-17) mg/dL Creatinine (0.52-1.04) mg/dL Estimated GFR ML/MIN Glucose (74-106) mg/dL Calcium (8.4-10.2) mg/dL Total Bilirubin (0.2-1.3) mg/dL AST (14-36) U/L ALT (0-35) U/L Alkaline Phosphatase (38-126) U/L Creatine Kinase (30-135) U/L Troponin I 0.024 0.014 0.015 (0.000-0.034) ng/mL Serum Total Protein (6.3-8.2) g/dL Albumin (3.5-5.0) g/dL Serum , Qual (Negative) Urine Color (YELLOW) Urine Appearance (CLEAR) Urine pH (5-6) Ur Specific [place] (1.005-1.025) Urine Protein (Negative) Urine Ketones (NEGATIVE) Urine Blood (0-5) Jorge/ul Urine Nitrite (NEGATIVE) Urine Bilirubin (NEGATIVE) Urine Urobilinogen (0-1) mg/dL Ur Leukocyte Esterase (NEGATIVE) Urine WBC (Auto) (0-5) /HPF Urine RBC (Auto) (0-2) /HPF U Hyaline Cast (Auto) (0-2) /LPF U Epithel Cells (Auto) (FEW) /HPF Urine Bacteria (Auto) (NEGATIVE) /HPF Urine Mucus (Auto) (NEGATIVE) /HPF Urine Culture Reflexed (NO) Urine Glucose (NEGATIVE) mg/dL Salicylates (2-20) mg/dL Urine Opiates Level (NEGATIVE) Ur Methadone (NEGATIVE) Acetaminophen (10-30) ug/ml Urine Barbiturates (NEGATIVE) Ur Phencyclidine (PCP) (NEGATIVE) Urine Amphetamine (NEGATIVE) U Benzodiazepine Level (NEGATIVE) Urine Cocaine (NEGATIVE) Urine Marijuana (THC) (NEGATIVE) Ethyl Alcohol (0-10) mg/dL 11/25/18 11/25/18 Range/Units 05:23 05:23 WBC 9.7 (4.0-10.5) K/mm3 RBC 3.52 L (4.1-5.4) M/mm3 Hgb 10.6 L (12.0-16.0) gm/dl Hct 33.2 L (35-47) % MCV 94.3 (78-100) fl MCH 30.1 (26-32) pg MCHC 31.9 L (32-36) g/dl RDW 13.1 (11.5-14.0) % Plt Count 220 (150-450) K/mm3 MPV 10.5 H (6-9.5) fl Gran % 74.3 H (36.0-66.0) % Eos # (Auto) 0.09 (0-0.5) Absolute Lymphs (auto) 1.76 (1.0-4.6) Absolute Monos (auto) 0.62 (0.0-1.3) Lymphocytes % 18.2 L (24.0-44.0) % Monocytes % 6.4 (0.0-12.0) % Eosinophils % 0.9 (0.00-5.0) % Basophils % 0.2 (0.0-0.4) % Absolute Granulocytes 7.20 H (1.4-6.9) Basophils # 0.02 (0-0.4) Sodium 137 (137-145) mmol/L Potassium 4.3 D (3.5-5.1) mmol/L Chloride 108 H (98-107) mmol/L Carbon Dioxide 22 (22-30) mmol/L Anion Gap 10.7 (5-15) MEQ/L BUN 9 (7-17) mg/dL Creatinine 0.57 (0.52-1.04) mg/dL Estimated GFR > 60.0 ML/MIN Glucose 136 H (74-106) mg/dL Calcium 8.1 L (8.4-10.2) mg/dL Total Bilirubin 0.70 (0.2-1.3) mg/dL AST 30 (14-36) U/L ALT 34 (0-35) U/L Alkaline Phosphatase 55 (38-126) U/L Creatine Kinase (30-135) U/L Troponin I (0.000-0.034) ng/mL Serum Total Protein 5.9 L (6.3-8.2) g/dL Albumin 3.1 L (3.5-5.0) g/dL Serum , Qual (Negative) Urine Color (YELLOW) Urine Appearance (CLEAR) Urine pH (5-6) Ur Specific [place] (1.005-1.025) Urine Protein (Negative) Urine Ketones (NEGATIVE) Urine Blood (0-5) Jorge/ul Urine Nitrite (NEGATIVE) Urine Bilirubin (NEGATIVE) Urine Urobilinogen (0-1) mg/dL Ur Leukocyte Esterase (NEGATIVE) Urine WBC (Auto) (0-5) /HPF Urine RBC (Auto) (0-2) /HPF U Hyaline Cast (Auto) (0-2) /LPF U Epithel Cells (Auto) (FEW) /HPF Urine Bacteria (Auto) (NEGATIVE) /HPF Urine Mucus (Auto) (NEGATIVE) /HPF Urine Culture Reflexed (NO) Urine Glucose (NEGATIVE) mg/dL Salicylates (2-20) mg/dL Urine Opiates Level (NEGATIVE) Ur Methadone (NEGATIVE) Acetaminophen (10-30) ug/ml Urine Barbiturates (NEGATIVE) Ur Phencyclidine (PCP) (NEGATIVE) Urine Amphetamine (NEGATIVE) U Benzodiazepine Level (NEGATIVE) Urine Cocaine (NEGATIVE) Urine Marijuana (THC) (NEGATIVE) Ethyl Alcohol (0-10) mg/dL Accuchecks Date 11/25/18 Date 11/25/18 Date 11/25/18 Date 11/24/18 Date 11/24/18 Time 04:00 Time 04:00 Time 00:00 Time 20:18 Time 17:03 Accucheck Value: 146 Accucheck Value: 141 Accucheck Value: 136 Accucheck Value: 131 Accucheck Value: 151 - Other Procedures and Tests Respiratory Therapy 11/24/18 19:30 Oxygen Nasal Cannula 4 lpm Respiratory Therapy Assessment DAILY Assessment/Plan (1) Suicidal ideation Current Visit: Yes Status: Acute Assessment & Plan: last 24 hours events noted Last Vital Signs Temp 98.7 F 11/25/18 07:16 Pulse 94 H 11/25/18 07:43 Resp 20 11/25/18 07:16 BP 96/64 11/25/18 07:16 Pulse Ox 99 11/25/18 07:16 Allergies cefaclor [From Ceclor] Allergy (Verified 11/24/18 15:13) codeine Allergy (Verified 11/24/18 15:13) oxycodone Allergy (Verified 11/24/18 15:13) Penicillins Allergy (Verified 11/24/18 15:13) Active Medications Sodium Chloride (Sodium Chloride 0.9% 1000 Ml) 1,000 mls @ 150 mls/hr IV .[id number] NOBLE Stop: 12/24/18 14:52 Last Admin: 11/25/18 07:52 Dose: 150 mls/hr Insulin Aspart (Novolog Insulin) 0 unit SQ UD PRN PRN Reason: HYPERGLYCEMIA Stop: 12/24/18 14:52 Intake & Output 11/24/18 11/25/18 11:59 11:59 Intake Total 1443 Output Total 500 Balance 943 Weight 95.254 kg 104.6 kg Orders 11/24/18 19:30 Oxygen Nasal Cannula 4 lpm Respiratory Therapy Assessment DAILY 11/25/18 Breakfast Regular Diet Lab Tests 11/24/18 11/24/18 11/24/18 11:40 11:40 11:40 WBC 11.4 H RBC 4.14 Hgb 12.6 Hct 38.2 MCV 92.3 MCH 30.4 MCHC 33.0 RDW 12.8 Plt Count 274 MPV 10.7 H Gran % 87.3 H Eos # (Auto) 0.02 Absolute Lymphs (auto) 1.05 Absolute Monos (auto) 0.34 Lymphocytes % 9.2 L Monocytes % 3.0 Eosinophils % 0.2 Basophils % 0.3 Absolute Granulocytes 9.94 H Basophils # 0.03 Sodium 135 L Potassium 3.3 L Chloride 102 Carbon Dioxide 17 L Anion Gap 20.5 H BUN 14 Creatinine 0.91 Estimated GFR > 60.0 Glucose 346 H Calcium 9.5 Total Bilirubin 0.70 AST 38 H ALT 48 H Alkaline Phosphatase 70 Creatine Kinase Troponin I Serum Total Protein 7.6 Albumin 4.3 Serum , Qual NEGATIVE Urine Color Urine Appearance Urine pH Ur Specific [place] Urine Protein Urine Ketones Urine Blood Urine Nitrite Urine Bilirubin Urine Urobilinogen Ur Leukocyte Esterase Urine WBC (Auto) Urine RBC (Auto) U Hyaline Cast (Auto) U Epithel Cells (Auto) Urine Bacteria (Auto) Urine Mucus (Auto) Urine Culture Reflexed Urine Glucose Salicylates < 1.0 L Urine Opiates Level Ur Methadone Acetaminophen < 10 L Urine Barbiturates Ur Phencyclidine (PCP) Urine Amphetamine U Benzodiazepine Level Urine Cocaine Urine Marijuana (THC) Ethyl Alcohol < 10 11/24/18 11/24/18 11/24/18 11:40 11:40 12:07 WBC RBC Hgb Hct MCV MCH MCHC RDW Plt Count MPV Gran % Eos # (Auto) Absolute Lymphs (auto) Absolute Monos (auto) Lymphocytes % Monocytes % Eosinophils % Basophils % Absolute Granulocytes Basophils # Sodium Potassium Chloride Carbon Dioxide Anion Gap BUN Creatinine Estimated GFR Glucose Calcium Total Bilirubin AST ALT Alkaline Phosphatase Creatine Kinase 59 Troponin I < 0.012 Serum Total Protein Albumin Serum , Qual Urine Color YELLOW Urine Appearance CLOUDY Urine pH 5.0 Ur Specific [place] 1.024 Urine Protein 30 Urine Ketones SMALL Urine Blood NEGATIVE Urine Nitrite NEGATIVE Urine Bilirubin NEGATIVE Urine Urobilinogen 4 Ur Leukocyte Esterase NEGATIVE Urine WBC (Auto) 3-5 Urine RBC (Auto) NONE U Hyaline Cast (Auto) 26-50 U Epithel Cells (Auto) RARE Urine Bacteria (Auto) FEW Urine Mucus (Auto) MODERATE Urine Culture Reflexed NO Urine Glucose >=500 Salicylates Urine Opiates Level Ur Methadone Acetaminophen Urine Barbiturates Ur Phencyclidine (PCP) Urine Amphetamine U Benzodiazepine Level Urine Cocaine Urine Marijuana (THC) Ethyl Alcohol 11/24/18 11/24/18 11/24/18 12:07 14:45 17:30 WBC RBC Hgb Hct MCV MCH MCHC RDW Plt Count MPV Gran % Eos # (Auto) Absolute Lymphs (auto) Absolute Monos (auto) Lymphocytes % Monocytes % Eosinophils % Basophils % Absolute Granulocytes Basophils # Sodium Potassium Chloride Carbon Dioxide Anion Gap BUN Creatinine Estimated GFR Glucose Calcium Total Bilirubin AST ALT Alkaline Phosphatase Creatine Kinase Troponin I 0.025 Serum Total Protein Albumin Serum , Qual Urine Color Urine Appearance Urine pH Ur Specific [place] Urine Protein Urine Ketones Urine Blood Urine Nitrite Urine Bilirubin Urine Urobilinogen Ur Leukocyte Esterase Urine WBC (Auto) Urine RBC (Auto) U Hyaline Cast (Auto) U Epithel Cells (Auto) Urine Bacteria (Auto) Urine Mucus (Auto) Urine Culture Reflexed Urine Glucose Salicylates Urine Opiates Level NEGATIVE Ur Methadone NEGATIVE Acetaminophen < 10 L Urine Barbiturates NEGATIVE Ur Phencyclidine (PCP) NEGATIVE Urine Amphetamine POSITIVE U Benzodiazepine Level NEGATIVE Urine Cocaine NEGATIVE Urine Marijuana (THC) NEGATIVE Ethyl Alcohol 11/24/18 11/24/18 11/24/18 17:45 21:15 23:40 WBC RBC Hgb Hct MCV MCH MCHC RDW Plt Count MPV Gran % Eos # (Auto) Absolute Lymphs (auto) Absolute Monos (auto) Lymphocytes % Monocytes % Eosinophils % Basophils % Absolute Granulocytes Basophils # Sodium Potassium Chloride Carbon Dioxide Anion Gap BUN Creatinine Estimated GFR Glucose Calcium Total Bilirubin AST ALT Alkaline Phosphatase Creatine Kinase Troponin I 0.024 0.014 0.015 Serum Total Protein Albumin Serum , Qual Urine Color Urine Appearance Urine pH Ur Specific [place] Urine Protein Urine Ketones Urine Blood Urine Nitrite Urine Bilirubin Urine Urobilinogen Ur Leukocyte Esterase Urine WBC (Auto) Urine RBC (Auto) U Hyaline Cast (Auto) U Epithel Cells (Auto) Urine Bacteria (Auto) Urine Mucus (Auto) Urine Culture Reflexed Urine Glucose Salicylates Urine Opiates Level Ur Methadone Acetaminophen Urine Barbiturates Ur Phencyclidine (PCP) Urine Amphetamine U Benzodiazepine Level Urine Cocaine Urine Marijuana (THC) Ethyl Alcohol 11/25/18 11/25/18 05:23 05:23 WBC 9.7 RBC 3.52 L Hgb 10.6 L Hct 33.2 L MCV 94.3 MCH 30.1 MCHC 31.9 L RDW 13.1 Plt Count 220 MPV 10.5 H Gran % 74.3 H Eos # (Auto) 0.09 Absolute Lymphs (auto) 1.76 Absolute Monos (auto) 0.62 Lymphocytes % 18.2 L Monocytes % 6.4 Eosinophils % 0.9 Basophils % 0.2 Absolute Granulocytes 7.20 H Basophils # 0.02 Sodium 137 Potassium 4.3 D Chloride 108 H Carbon Dioxide 22 Anion Gap 10.7 BUN 9 Creatinine 0.57 Estimated GFR > 60.0 Glucose 136 H Calcium 8.1 L Total Bilirubin 0.70 AST 30 ALT 34 Alkaline Phosphatase 55 Creatine Kinase Troponin I Serum Total Protein 5.9 L Albumin 3.1 L Serum , Qual Urine Color Urine Appearance Urine pH Ur Specific [place] Urine Protein Urine Ketones Urine Blood Urine Nitrite Urine Bilirubin Urine Urobilinogen Ur Leukocyte Esterase Urine WBC (Auto) Urine RBC (Auto) U Hyaline Cast (Auto) U Epithel Cells (Auto) Urine Bacteria (Auto) Urine Mucus (Auto) Urine Culture Reflexed Urine Glucose Salicylates Urine Opiates Level Ur Methadone Acetaminophen Urine Barbiturates Ur Phencyclidine (PCP) Urine Amphetamine U Benzodiazepine Level Urine Cocaine Urine Marijuana (THC) Ethyl Alcohol Code(s): R45.851 - SUICIDAL IDEATIONS (2) Hallucination Current Visit: Yes Status: Acute Code(s): R44.3 - HALLUCINATIONS, UNSPECIFIED (3) Paranoia (psychosis) Current Visit: Yes Status: Acute Code(s): F22 - DELUSIONAL DISORDERS (4) Acute psychosis Current Visit: No Status: Acute Code(s): F23 - BRIEF PSYCHOTIC DISORDER (5) Substance abuse Current Visit: Yes Status: Acute Code(s): F19.10 - OTHER PSYCHOACTIVE SUBSTANCE ABUSE, UNCOMPLICATED
[2018-11-25 16:19] VITALS: BP 114/58; PULSE 91; O2SAT 97
== END 2018-11-25 16:21 | disposition home or self-care (01) ==
LOC: ED 11:19 → ICU 14:30
PROVIDERS: ADMIT General Practice; ATTEND General Practice
DX: T14.91XA Suicide attempt, initial encounter (principal); X78.9XXA Intentional self-harm by unspecified sharp object, initial encounter; R44.3 Hallucinations, unspecified; F22 Delusional disorders; F19.10 Other psychoactive substance abuse, uncomplicated
CPT/HCPCS: 36000; 36415; 80053; 80307; 81001; 81025; 82550; 82962; 84484; 85025; 93005; 93041; 93268; 96360; 96374; 99285; G0481; J2060; P9612; A9270-GY; G0378; G0480

== ENCOUNTER 2019-01-05 18:40 | Emergency (ER) | payer OTHER ==
[2019-01-05] MEDS ORDERED: Sodium Chloride 0.9% 1000 ML 1,000 ML IV STA (19:08)
--- NOTE | 2019-01-05 19:08 | ERPHSYRPT ---
- History of Present Illness Time Seen by Provider: 01/05/19 19:00 Source: patient Exam Limitations: no limitations Physician History: 38 y/o obese white female presents with multiple complaints today including headache, visual changes, generalized numbness, high blood pressure and anxiety. pt denies head injury. pt admits to regular methamphetamine use. most recently used yesterday. pt feels heart racing. she denies soa, denies cp and denies abd pain. Timing/Duration: today Character of Deficits: altered sensation (numbness all overf), vision problems Baseline/Normal Cognition: alert oriented x 3 Current Cognition: alert oriented x 3 Baseline Gait: walks w/o assistance Associated Symptoms: numbness/tingling in legs/feet, vision changes, headache, No confusion, No loss of consciousness, No nausea, No vomiting, No weakness, No muscle spasms, No paresthesia, No ringing in ears, No seizures, No slurred speech, No chest pain Allergies/Adverse Reactions: cefaclor [From Ceclor] Allergy (Verified 01/05/19 18:54) codeine Allergy (Verified 01/05/19 18:54) oxycodone Allergy (Verified 01/05/19 18:54) Penicillins Allergy (Verified 01/05/19 18:54) Home Medications: Cariprazine HCl [Vraylar] 3 mg PO DAILY 01/05/19 [History] Hx Tetanus, Diphtheria Vaccination/Date Given: Yes (up to date) Hx Influenza Vaccination/Date Given: Yes Hx Pneumococcal Vaccination/Date Given: No - Review of Systems Constitutional: No Symptoms Eyes: No Symptoms Ears, Nose, & Throat: No Symptoms Respiratory: No Symptoms Cardiac: Palpitations Abdominal/Gastrointestinal: No Symptoms Genitourinary Symptoms: No Symptoms Musculoskeletal: No Symptoms Skin: No Symptoms Neurological: Headache Psychological: Anxiety Endocrine: No Symptoms Hematologic/Lymphatic: No Symptoms Immunological/Allergic: No Symptoms All Other Systems: Reviewed and Negative - Past Medical History Pertinent Past Medical History: Yes Neurological History: Migraines ENT History: No Pertinent History Cardiac History: No Pertinent History Respiratory History: No Pertinent History Endocrine Medical History: No Pertinent History Musculoskeletal History: No Pertinent History GI Medical History: No Pertinent History History: No Pertinent History Psycho-Social History: Anxiety, Attention Deficit Disorder, Bipolar, Other Other Medical History: schiozophrenia, 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 above hx provided per spouse - Past Surgical History Past Surgical History: Yes Neuro Surgical History: No Pertinent History Cardiac: No Pertinent History Respiratory: No Pertinent History Gastrointestinal: Cholecystectomy Genitourinary: No Pertinent History Female Surgical History: Tubal Ligation - Social History Smoking Status: Current every day smoker How long have you smoked: 25 Exposure to second hand smoke: Yes Drug Use: methamphetamines Patient Lives Alone: No - Nursing Vital Signs Nursing Vital Signs: Initial Vital Signs Temperature 98.2 F 01/05/19 18:45 Pulse Rate 127 H 01/05/19 18:45 Respiratory Rate 18 01/05/19 18:45 Blood Pressure 143/90 01/05/19 18:45 O2 Sat by Pulse Oximetry 99 01/05/19 18:45 Pain Scale Pain Intensity 0 - [place] Coma Scale Best Eye Response ([place]): (4) open spontaneously Best Verbal Response ([place]): (5) oriented Best Motor Response ([place]): (6) obeys commands [place] Total: 15 - Physical Exam General Appearance: mild distress, alert, anxiety Eye Exam: bilateral eye: normal inspection, PERRL, EOMI Ears, Nose, Throat Exam: normal ENT inspection, moist mucous membranes Neck Exam: normal inspection, non-tender, supple, full range of motion Respiratory: normal breath sounds, lungs clear, airway intact, No chest tenderness, No respiratory distress, No accessory muscle use, No rhonchi, No wheezing, No stridor Cardiovascular: tachycardia Gastrointestinal: soft, normal bowel sounds, No tenderness Pelvic Exam: not done Rectal Exam: not done Back Exam: normal inspection, normal range of motion, No CVA tenderness, No vertebral tenderness Extremity Exam: normal inspection, normal range of motion, pelvis stable Mental Status: alert, oriented x 3, 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 improved tachcardia) Ordered Tests: Active Orders 24 hr Category Date Time Status Clean Catch Urine Specimen STAT Care 01/05/19 19:08 Active EKG-ER Only STAT Care 01/05/19 19:08 Active IV Insertion STAT Care 01/05/19 19:08 Active Pulse Oximetry (ED) STAT Care 01/05/19 19:08 Active HEAD WITHOUT CONTRAST [CT] Stat Exams 01/05/19 19:08 Taken CBC W DIFF Stat Lab 01/05/19 18:50 Completed CMP Stat Lab 01/05/19 18:50 Completed UA W/RFX UR CULTURE Stat Lab 01/05/19 20:55 Completed Urine Triage Profile Stat Lab 01/05/19 19:00 Completed Medication Summary Discontinued Medications Generic Name Dose Route Start Last Admin Trade Name Freq PRN Reason Stop Dose Admin Sodium Chloride 1,000 mls @ 999 mls/hr 01/05/19 19:08 01/05/19 20:18 Sodium Chloride 0.9% 1000 Ml IV 01/05/19 20:08 Infused .Q1H1M STA Infusion Sodium Chloride Confirm 01/05/19 19:14 Sodium Chloride 0.9% 1000 Ml Administered 01/05/19 19:15 Dose 1,000 mls @ ud .ROUTE .STK-MED ONE Lorazepam 1 mg 01/05/19 20:53 01/05/19 20:58 Ativan 2 Mg/1 Ml Vial IV 01/05/19 20:54 1 mg STAT ONE Administration Lorazepam Confirm 01/05/19 20:56 Ativan 2 Mg/1 Ml Vial Administered 01/05/19 20:57 Dose 2 mg .ROUTE .STK-MED ONE Lab/Rad Data: Laboratory Result Diagrams 01/05/19 18:50 01/05/19 18:50 Laboratory Results 01/05/19 01/05/19 01/05/19 Range/Units 20:55 19:00 18:50 WBC (4.0-10.5) K/mm3 RBC (4.1-5.4) M/mm3 Hgb (12.0-16.0) gm/dl Hct (35-47) % MCV (78-100) fl MCH (26-32) pg MCHC (32-36) g/dl RDW (11.5-14.0) % Plt Count (150-450) K/mm3 MPV (6-9.5) fl Gran % (36.0-66.0) % Eos # (Auto) (0-0.5) Absolute Lymphs (auto) (1.0-4.6) Absolute Monos (auto) (0.0-1.3) Lymphocytes % (24.0-44.0) % Monocytes % (0.0-12.0) % Eosinophils % (0.00-5.0) % Basophils % (0.0-0.4) % Absolute Granulocytes (1.4-6.9) Basophils # (0-0.4) Sodium 138 (137-145) mmol/L Potassium 4.3 (3.5-5.1) mmol/L Chloride 101 (98-107) mmol/L Carbon Dioxide 27 (22-30) mmol/L Anion Gap 13.3 (5-15) MEQ/L BUN 10 (7-17) mg/dL Creatinine 0.66 (0.52-1.04) mg/dL Estimated GFR > 60.0 ML/MIN Glucose 161 H (74-106) mg/dL Calcium 8.9 (8.4-10.2) mg/dL Total Bilirubin 0.50 (0.2-1.3) mg/dL AST 35 (14-36) U/L ALT 47 H (0-35) U/L Alkaline Phosphatase 67 (38-126) U/L Serum Total Protein 7.5 (6.3-8.2) g/dL Albumin 4.1 (3.5-5.0) g/dL Urine Color YELLOW (YELLOW) Urine Appearance CLEAR (CLEAR) Urine pH 7.0 (5-6) Ur Specific [place] 1.004 (1.005-1.025) Urine Protein NEGATIVE (Negative) Urine Ketones NEGATIVE (NEGATIVE) Urine Blood NEGATIVE (0-5) Jorge/ul Urine Nitrite NEGATIVE (NEGATIVE) Urine Bilirubin NEGATIVE (NEGATIVE) Urine Urobilinogen 2 (0-1) mg/dL Ur Leukocyte Esterase NEGATIVE (NEGATIVE) Urine WBC (Auto) 0-2 (0-5) /HPF Urine RBC (Auto) NONE (0-2) /HPF U Epithel Cells (Auto) RARE (FEW) /HPF Urine Bacteria (Auto) NONE (NEGATIVE) /HPF Urine Culture Reflexed NO (NO) Urine Glucose NEGATIVE (NEGATIVE) mg/dL Urine Opiates Level NEGATIVE (NEGATIVE) Ur Methadone NEGATIVE (NEGATIVE) Urine Barbiturates NEGATIVE (NEGATIVE) Ur Phencyclidine (PCP) NEGATIVE (NEGATIVE) Urine Amphetamine POSITIVE (NEGATIVE) U Benzodiazepine Level NEGATIVE (NEGATIVE) Urine Cocaine NEGATIVE (NEGATIVE) Urine Marijuana (THC) NEGATIVE (NEGATIVE) 01/05/19 Range/Units 18:50 WBC 10.6 H (4.0-10.5) K/mm3 RBC 4.38 (4.1-5.4) M/mm3 Hgb 13.1 (12.0-16.0) gm/dl Hct 40.7 (35-47) % MCV 92.9 (78-100) fl MCH 29.9 (26-32) pg MCHC 32.2 (32-36) g/dl RDW 13.3 (11.5-14.0) % Plt Count 325 (150-450) K/mm3 MPV 9.8 H (6-9.5) fl Gran % 73.4 H (36.0-66.0) % Eos # (Auto) 0.11 (0-0.5) Absolute Lymphs (auto) 2.03 (1.0-4.6) Absolute Monos (auto) 0.64 (0.0-1.3) Lymphocytes % 19.1 L (24.0-44.0) % Monocytes % 6.0 (0.0-12.0) % Eosinophils % 1.0 (0.00-5.0) % Basophils % 0.5 (0.0-0.4) % Absolute Granulocytes 7.78 H (1.4-6.9) Basophils # 0.05 (0-0.4) Sodium (137-145) mmol/L Potassium (3.5-5.1) mmol/L Chloride (98-107) mmol/L Carbon Dioxide (22-30) mmol/L Anion Gap (5-15) MEQ/L BUN (7-17) mg/dL Creatinine (0.52-1.04) mg/dL Estimated GFR ML/MIN Glucose (74-106) mg/dL Calcium (8.4-10.2) mg/dL Total Bilirubin (0.2-1.3) mg/dL AST (14-36) U/L ALT (0-35) U/L Alkaline Phosphatase (38-126) U/L Serum Total Protein (6.3-8.2) g/dL Albumin (3.5-5.0) g/dL Urine Color (YELLOW) Urine Appearance (CLEAR) Urine pH (5-6) Ur Specific [place] (1.005-1.025) Urine Protein (Negative) Urine Ketones (NEGATIVE) Urine Blood (0-5) Jorge/ul Urine Nitrite (NEGATIVE) Urine Bilirubin (NEGATIVE) Urine Urobilinogen (0-1) mg/dL Ur Leukocyte Esterase (NEGATIVE) Urine WBC (Auto) (0-5) /HPF Urine RBC (Auto) (0-2) /HPF U Epithel Cells (Auto) (FEW) /HPF Urine Bacteria (Auto) (NEGATIVE) /HPF Urine Culture Reflexed (NO) Urine Glucose (NEGATIVE) mg/dL Urine Opiates Level (NEGATIVE) Ur Methadone (NEGATIVE) Urine Barbiturates (NEGATIVE) Ur Phencyclidine (PCP) (NEGATIVE) Urine Amphetamine (NEGATIVE) U Benzodiazepine Level (NEGATIVE) Urine Cocaine (NEGATIVE) Urine Marijuana (THC) (NEGATIVE) - Progress Progress: improved, re-examined Progress Note: 01/05/19 20:51 ct head- no acute intracranial process Counseled pt/family regarding: lab results, diagnosis, need for follow-up, rad results - Departure Time of Disposition: 21:14 Departure Disposition: Home Clinical Impression: Anxiety, Methamphetamine abuse Condition: Stable Critical Care Time: No Referrals: DOCTOR,NO FAMILY [Primary Care Provider] - Additional Instructions: stop methamphetamine abuse. follow up with your drug counselor tomorrow. drink plenty of fluids
[2019-01-05] MEDS ORDERED: Sodium Chloride 0.9% 1000 ML 1,000 ML ONE (19:14)
[2019-01-05 20:01] LABS: BASOPHIL % 0.5 % (0.0-0.4); Basophil (Absolute #) 0.05 (0-0.4); Eosinophil (Absolute #) 0.11 (0-0.5); Granulocyte Absolute (ANC) 7.78 (1.4-6.9); Granulocytes % 73.4 % (36.0-66.0); Hematocrit 40.7 % (35-47); Hemoglobin 13.1 gm/dl (12.0-16.0); Lymphocyte (Absolute #) 2.03 (1.0-4.6); Lymphocytes % 19.1 % (24.0-44.0); Mean Cell Volume 92.9 fl (78-100); Mean Corpuscular Hemoglobin 29.9 pg (26-32); Mean Corpuscular Hgb Concent. 32.2 g/dl (32-36); Mean Platelet Volume 9.8 fl (6-9.5); Monocyte (Absolute #) 0.64 (0.0-1.3); Platelet Count 325 K/mm3 (150-450); Red Blood Count 4.38 M/mm3 (4.1-5.4); Red Cell Distribution Width 13.3 % (11.5-14.0); White Blood Count 10.6 K/mm3 (4.0-10.5)
[2019-01-05 20:04] LABS: Barbiturate,Urine NEGATIVE (NEGATIVE); Benzodiazepine,Urine NEGATIVE (NEGATIVE); Cocaine,Urine NEGATIVE (NEGATIVE); Methadone,Urine NEGATIVE (NEGATIVE); Opiate,Urine NEGATIVE (NEGATIVE); PCP,Urine NEGATIVE (NEGATIVE); THC,Urine NEGATIVE (NEGATIVE)
[2019-01-05 20:12] LABS: ALBUMIN 4.1 g/dL (3.5-5.0); ALKALINE PHOSPHATASE 67 U/L (38-126); ANION GAP 13.3 MEQ/L (5-15); BLOOD UREA NITROGEN 10 mg/dL (7-17); CHLORIDE 101 mmol/L (98-107); Calcium 8.9 mg/dL (8.4-10.2); Carbon Dioxide 27 mmol/L (22-30); Creatinine 1 0.66 mg/dL (0.52-1.04); Glucose 161 mg/dL (74-106); Potassium 4.3 mmol/L (3.5-5.1); SGOT/AST 35 U/L (14-36); SGPT/ALT 47 U/L (0-35); SODIUM 138 mmol/L (137-145); Total Protein 7.5 g/dL (6.3-8.2)
[2019-01-05 20:38] LABS: Amphetamine,Urine POSITIVE (NEGATIVE)
[2019-01-05] MEDS ORDERED: Ativan 2 MG/1 ML VIAL IV ONE (20:53)
[2019-01-05] MEDS ORDERED: Ativan 2 MG/1 ML VIAL ONE (20:56)
[2019-01-05 21:09] LABS: Appearance CLEAR (CLEAR); Bilirubin NEGATIVE (NEGATIVE); Blood NEGATIVE Ery/ul (0-5); Epithelial Cells RARE /HPF (FEW); Glucose NEGATIVE (NEGATIVE); Ketones NEGATIVE (NEGATIVE); Leukocyte Esterase NEGATIVE (NEGATIVE); Nitrite NEGATIVE (NEGATIVE); Protein,Urine Dip NEGATIVE (Negative); Specific Gravity 1.004 (1.005-1.025); Urobilinogen 2 mg/dL (0-1); WBC 0-2 /HPF (0-5)
[2019-01-05 21:26] VITALS: BP 117/77; PULSE 99; O2SAT 99
--- NOTE | 2019-01-06 08:49 | XRAY ---
Indication: Left eye and left facial numbness. Visual disturbances. Multiple contiguous axial images obtained through the head without contrast. Comparison: None Normal appearing brain parenchyma, ventricles, and bony calvarium. Visualized paranasal sinuses and mastoid air cells are clear. Impression: Normal CT head without contrast exam. CT DI 67.99
== END 2019-01-05 21:29 | disposition home or self-care (01) ==
LOC: ED 18:40
DX: F41.9 Anxiety disorder, unspecified (principal); F15.10 Other stimulant abuse, uncomplicated; R51 Headache; F31.9 Bipolar disorder, unspecified
CPT/HCPCS: 36000; 36415; 70450; 80053; 80307; 81001; 85025; 93005; 96360; 96374; 96375; 99284; J2060

== ENCOUNTER 2019-03-13 18:46 | Emergency (ER) | payer OTHER ==
--- NOTE | 2019-03-13 19:11 | ERPHSYRPT ---
- History of Present Illness Time Seen by Provider: 03/13/19 19:06 Source: patient, family Exam Limitations: no limitations Physician History: pt has schitzophrenia and has been unable to get her meds and attempted to cut both wrists this morning; she has bilateral tendon lacs of flexor tendons at the wrist; pt has corwin rocephin in past without problems so will give this; Occurred: this morning Method of Injury: incised Quality: constant Severity of Pain-Max: moderate Severity of Pain-Current: moderate Extremities Pain Location: wrist: bilateral Modifying Factors: Improves With: movement Associated Symptoms: other Allergies/Adverse Reactions: cefaclor [From Ceclor] Allergy (Verified 01/05/19 18:54) codeine Allergy (Verified 01/05/19 18:54) oxycodone Allergy (Verified 01/05/19 18:54) Penicillins Allergy (Verified 01/05/19 18:54) Home Medications: Cariprazine HCl [Vraylar] 3 mg PO DAILY 01/05/19 [History] Hx Tetanus, Diphtheria Vaccination/Date Given: Yes (up to date) Hx Influenza Vaccination/Date Given: Yes Hx Pneumococcal Vaccination/Date Given: No - Past Medical History Pertinent Past Medical History: Yes Neurological History: Migraines ENT History: No Pertinent History Cardiac History: No Pertinent History Respiratory History: No Pertinent History Endocrine Medical History: No Pertinent History Musculoskeletal History: No Pertinent History GI Medical History: No Pertinent History History: No Pertinent History Psycho-Social History: Anxiety, Attention Deficit Disorder, Bipolar, Other Other Medical History: schiozophrenia, 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 above hx provided per spouse - Past Surgical History Past Surgical History: Yes Neuro Surgical History: No Pertinent History Cardiac: No Pertinent History Respiratory: No Pertinent History Gastrointestinal: Cholecystectomy Genitourinary: No Pertinent History Female Surgical History: Tubal Ligation - Social History Smoking Status: Current every day smoker How long have you smoked: 25 Exposure to second hand smoke: Yes Drug Use: methamphetamines Patient Lives Alone: No - Physical Exam General Appearance: alert Eyes, Ears, Nose, Throat Exam: moist mucous membranes Neck Exam: non-tender, supple Cardiovascular/Respiratory Exam: chest non-tender, normal breath sounds, regular rate/rhythm, no respiratory distress Abdominal Exam: non-tender, No guarding Back Exam: normal inspection, No vertebral tenderness Shoulder Exam: normal inspection, non-tender, no evidence of injury, normal ROM Elbow/Forearm Exam: normal inspection, non-tender, no evidence of injury, normal ROM Wrist Exam: pain, soft tissue tenderness (lac tendons flexor bilateral) Hand Exam: normal inspection, non-tender, no evidence of injury DTR - Upper Extremity Exam: bicep (R): 2+, bicep (L): 2+, tricep (R): 2+, tricep (L): 2+ Neuro/Tendon Exam: normal sensation, normal motor functions, tendon injury visualized (bilateral flexor at wrists) Mental Status Exam: alert, oriented x 3, cooperative Skin Exam: normal color, warm, dry - Course Nursing assessment & vital signs reviewed: Yes Ordered Tests: Active Orders 24 hr Category Date Time Status IV Insertion STAT Care 03/13/19 19:15 Active NPO (ED) STAT Care 03/13/19 19:17 Active ACETAMINOPHEN Stat Lab 03/13/19 19:15 Ordered CBC W DIFF Stat Lab 03/13/19 19:15 Ordered CMP Stat Lab 03/13/19 19:15 Ordered ETHYL ALCOHOL Stat Lab 03/13/19 19:15 Ordered HCG QUALITATIVE,SERUM Stat Lab 03/13/19 Ordered SALICYLATE Stat Lab 03/13/19 19:15 Ordered UA W/RFX UR CULTURE Stat Lab 03/13/19 19:15 Uncollected Medication Summary Generic Name Dose Route Start Last Admin Trade Name Freq PRN Reason Stop Dose Admin Sodium Chloride 1,000 mls @ 100 mls/hr 03/13/19 19:15 Sodium Chloride 0.9% 1000 Ml IV 04/12/19 19:14 .Q10H NOBLE Ceftriaxone Sodium/Dextrose 1 g in 50 mls @ 100 mls/hr 03/13/19 19:17 Rocephin 1 Gm-D5w 50 Ml Bag IV 03/13/19 19:46 STAT STA Sodium Chloride 1,000 mls @ 999 mls/hr 03/13/19 19:17 Sodium Chloride 0.9% 1000 Ml IV 03/13/19 20:17 .Q1H1M STA Discontinued Medications Generic Name Dose Route Start Last Admin Trade Name Freq PRN Reason Stop Dose Admin Diphtheria/Tetanus/Acell Pertussis 0.5 ml 03/13/19 19:16 Adacel Vial IM 03/13/19 19:17 .ONCE ONE - Progress Progress: unchanged, re-examined Progress Note: 03/13/19 19:[address] Poole at [facility] and they will accept in transfer to ER. Discussed with Dr.: Other (Dr. Perez at [facility]) Will see patient in: ED Counseled pt/family regarding: diagnosis, need for follow-up - Departure Departure Disposition: Transfer Clinical Impression: Suicidal ideation, lacerated bilateral wrist flexor tendons, suicide attempt Condition: Good Critical Care Time: No Referrals: DOCTOR,NO FAMILY [Primary Care Provider] -
[2019-03-13] MEDS ORDERED: ROCEPHIN 1 Gm-D5w 50 ml Bag** 1 G/50 ML IVPB IV ONE (19:19)
[2019-03-13] MEDS ORDERED: Sodium Chloride 0.9% 1000 ML 1,000 ML ONE (19:19)
[2019-03-13] MEDS ORDERED: Adacel Vial IM ONE (19:23)
[2019-03-13 19:25] VITALS: BP 106/82; PULSE 120; O2SAT 97
[2019-03-13 19:25] LABS: BASOPHIL % 0.2 % (0.0-0.4); Basophil (Absolute #) 0.03 (0-0.4); Eosinophil % 0.1 % (0.00-5.0); Eosinophil (Absolute #) 0.01 (0-0.5); Granulocyte Absolute (ANC) 15.77 (1.4-6.9); Granulocytes % 82.4 % (36.0-66.0); Hematocrit 38.2 % (35-47); Hemoglobin 12.5 gm/dl (12.0-16.0); Lymphocyte (Absolute #) 2.03 (1.0-4.6); Lymphocytes % 10.6 % (24.0-44.0); Mean Cell Volume 89.7 fl (78-100); Mean Corpuscular Hemoglobin 29.3 pg (26-32); Mean Corpuscular Hgb Concent. 32.7 g/dl (32-36); Mean Platelet Volume 10.2 fl (6-9.5); Monocyte (Absolute #) 1.28 (0.0-1.3); Monocytes % 6.7 % (0.0-12.0); Platelet Count 324 K/mm3 (150-450); Red Blood Count 4.26 M/mm3 (4.1-5.4); White Blood Count 19.1 K/mm3 (4.0-10.5)
[2019-03-13] MEDS: Sodium Chloride 0.9% 1000 ML 1,000 ML IV STA (19:32)
[2019-03-13] MEDS: ROCEPHIN 1 Gm-D5w 50 ml Bag** 1 G/50 ML IVPB IV STA (19:32)
[2019-03-13 19:36] LABS: ACETAMINOPHEN < 10 ug/ml (10-30); ALBUMIN 4.2 g/dL (3.5-5.0); ALKALINE PHOSPHATASE 70 U/L (38-126); ANION GAP 17.7 MEQ/L (5-15); BLOOD UREA NITROGEN 15 mg/dL (7-17); CHLORIDE 104 mmol/L (98-107); Carbon Dioxide 21 mmol/L (22-30); Creatinine 1 0.88 mg/dL (0.52-1.04); ETHYL ALCOHOL < 10 mg/dL (0-10); Glucose 141 mg/dL (74-106); Potassium 3.6 mmol/L (3.5-5.1); SALICYLATE < 1.0 mg/dL (2-20); SGOT/AST 58 U/L (14-36); SGPT/ALT 50 U/L (0-35); SODIUM 139 mmol/L (137-145); Total Protein 7.7 g/dL (6.3-8.2)
[2019-03-13] MEDS ORDERED: Ativan 2 MG/1 ML VIAL ONE (19:41)
[2019-03-13] MEDS: Adacel Vial IM ONE (19:42)
[2019-03-13] MEDS: Ativan 2 MG/1 ML VIAL IV ONE (19:44)
[2019-03-13] MEDS: Sodium Chloride 0.9% 1000 ML 1,000 ML IV SCH (19:56)
== END 2019-03-13 19:45 | disposition short-term general hospital (02) ==
LOC: ED 18:46
DX: T14.91XA Suicide attempt, initial encounter (principal); S61.512A Laceration without foreign body of left wrist, initial encounter; S61.511A Laceration without foreign body of right wrist, initial encounter; X78.9XXA Intentional self-harm by unspecified sharp object, initial encounter; F31.9 Bipolar disorder, unspecified
CPT/HCPCS: 36000; 36415; 80053; 80307; 81025; 85025; 90471; 96360; 96365; 96374; 99285; G0480; G0481; 90715; J0696; J2060

== ENCOUNTER 2019-05-10 16:27 | Emergency (ER) | payer OTHER ==
[2019-05-10 16:41] VITALS: BP 107/87; PULSE 117; O2SAT 98
[2019-05-10] MEDS ORDERED: POLYSPORIN EYE OINT. OP ONE (17:03)
[2019-05-10] MEDS ORDERED: TYLENOL 325 MG PO STA (17:03)
--- NOTE | 2019-05-10 17:11 | ERPHSYRPT ---
- History of Present Illness Time Seen by Provider: 05/10/19 17:02 Source: patient Exam Limitations: no limitations Patient Subjective Stated Complaint: PT HERE TO HAVE PORFIRIO REMOVED FROM RIGHT WRIST, SHE STATES SHE CUT HER WRIST 2 MONTHS AGO AND HAD OTHER PORFIRIO REMOVED A MONTH AGO AND SHE STATES THET FORGOT TO REMOVE 2, SHE IS ALSO WORRIED AND THINKS HER WRIST IS INFECTED, Triage Nursing Assessment: PT ALERT, NERVOUS, RESP EASY, WALKED IN, RIGHT WRIST WITH TWO PORFIRIO, SLIGHT REDNESS, SCAR TO WRIST Physician History: Pt sustained multiple severe lacerations to her wrists, when she cut them with a machete 2 months ago as a suicidal act. She still has 2 stales left over in her right wrist, and c/o about them being painful. She denies fever, other complaints. Occurred: other (2 months ago) Method of Injury: incised Quality: constant Severity of Pain-Max: moderate Severity of Pain-Current: moderate Extremities Pain Location: wrist: right (old scars) Modifying Factors: Improves With: nothing Associated Symptoms: none Allergies/Adverse Reactions: cefaclor [From Ceclor] Allergy (Verified 05/10/19 16:41) codeine Allergy (Verified 05/10/19 16:41) oxycodone Allergy (Verified 05/10/19 16:41) Penicillins Allergy (Verified 05/10/19 16:41) Home Medications: [place] Carbonate 300 mg [[place] Carbonate 300 MG] 300 mg DAILY 05/10/19 [History] Prazosin HCl [Minipress] 1 mg DAILY 05/10/19 [History] Sertraline HCl 75 mg DAILY 05/10/19 [History] Hx Tetanus, Diphtheria Vaccination/Date Given: Yes Hx Influenza Vaccination/Date Given: No Hx Pneumococcal Vaccination/Date Given: No Immunizations Up to Date: Yes - Review of Systems Constitutional: No Symptoms Respiratory: No Symptoms Cardiac: No Symptoms Abdominal/Gastrointestinal: No Symptoms Musculoskeletal: Other (right wrist oprfirio being painful.) Skin: No Symptoms Neurological: No Symptoms Psychological: No Symptoms All Other Systems: Reviewed and Negative - Past Medical History Pertinent Past Medical History: Yes Neurological History: Migraines ENT History: No Pertinent History Cardiac History: No Pertinent History, Hypertension Respiratory History: No Pertinent History Endocrine Medical History: No Pertinent History Musculoskeletal History: No Pertinent History GI Medical History: No Pertinent History History: No Pertinent History Psycho-Social History: Anxiety, Attention Deficit Disorder, Bipolar, Other Other Medical History: schiozophrenia, 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 above hx provided per spouse - Past Surgical History Past Surgical History: Yes Neuro Surgical History: No Pertinent History Cardiac: No Pertinent History Respiratory: No Pertinent History Gastrointestinal: Cholecystectomy Genitourinary: No Pertinent History Female Surgical History: Tubal Ligation - Social History Smoking Status: Current every day smoker How long have you smoked: 1 Exposure to second hand smoke: Yes Drug Use: methamphetamines Patient Lives Alone: No - Female History Hx Last Menstrual Period: MARCH Hx Now: No - Nursing Vital Signs Nursing Vital Signs: Initial Vital Signs Temperature 100.0 F 05/10/19 16:32 Pulse Rate 117 H 05/10/19 16:32 Respiratory Rate 17 05/10/19 16:32 Blood Pressure 107/87 05/10/19 16:32 O2 Sat by Pulse Oximetry 98 05/10/19 16:32 Pain Scale Pain Intensity 8 - Physical Exam General Appearance: no apparent distress Neck Exam: normal inspection, non-tender Cardiovascular/Respiratory Exam: chest non-tender, normal breath sounds, regular rate/rhythm, heart sounds normal Abdominal Exam: non-tender Back Exam: normal inspection Wrist Exam: pain (both wrists with old, scarred, healed lacerations, 2 porfirio left in right volar wrist, no swelling, redness, or discharge. ) Neuro/Tendon Exam: normal motor functions Mental Status Exam: alert, oriented x 3, cooperative Skin Exam: normal color, warm, dry SpO2 Interpretation: normal SpO2: 98 O2 Delivery: Room Air - Course Nursing assessment & vital signs reviewed: Yes Ordered Tests: Medication Summary Discontinued Medications Generic Name Dose Route Start Last Admin Trade Name Freq PRN Reason Stop Dose Admin Acetaminophen 650 mg 05/10/19 17:03 Tylenol 325 Mg PO 05/10/19 17:04 STAT STA Bacitracin/Polymyxin B Sulfate 1 gm 05/10/19 17:03 Polysporin Eye Oint. OP 05/10/19 17:04 NOW ONE - Progress Progress: unchanged Progress Note: 05/10/19 17:10 Both porfirio removed without difficulty,antibiotic ointment dressing applied, she is being discharged to follow up with her physicina in 2-3 days. Counseled pt/family regarding: diagnosis, need for follow-up - Departure Departure Disposition: Home Clinical Impression: Stapled skin wound Condition: Stable Critical Care Time: No Referrals: DOCTOR,NO FAMILY [Primary Care Provider] - Instructions: Wound Care (DC) Additional Instructions: Keep area clean, change dressing daily and follow up with your pohysician in 2- 3 days, return if severe pain, discharge, fever> 102 F!
[2019-05-10] MEDS ORDERED: BACIGUENT PACKET ONE (17:33)
[2019-05-10] MEDS ORDERED: TYLENOL 325 MG ONE (17:34)
[2019-05-10] MEDS ORDERED: BACIGUENT PACKET TP ONE (17:42)
== END 2019-05-10 17:43 | disposition home or self-care (01) ==
LOC: ED 16:27
DX: Z48.02 Encounter for removal of sutures (principal)
CPT/HCPCS: 99283; A9270-GY

== ENCOUNTER 2019-11-04 19:20 | Emergency (ER) | payer MEDICAID, OTHER ==
[2019-11-04] MEDS ORDERED: BACTRIM DS TABLET PO STA (23:33)
[2019-11-04 23:36] VITALS: BP 112/70; PULSE 92; O2SAT 96
[2019-11-04 23:42] LABS: Amphetamine,Urine NEGATIVE (NEGATIVE); Barbiturate,Urine NEGATIVE (NEGATIVE); Benzodiazepine,Urine NEGATIVE (NEGATIVE); Cocaine,Urine NEGATIVE (NEGATIVE); Methadone,Urine NEGATIVE (NEGATIVE); Opiate,Urine NEGATIVE (NEGATIVE); PCP,Urine NEGATIVE (NEGATIVE); THC,Urine NEGATIVE (NEGATIVE)
[2019-11-04 23:43] LABS: ACETAMINOPHEN < 10 ug/ml (10-30); ALBUMIN 4.5 g/dL (3.5-5.0); ALKALINE PHOSPHATASE 59 U/L (38-126); BLOOD UREA NITROGEN 12 mg/dL (7-17); CHLORIDE 100 mmol/L (98-107); Calcium 9.9 mg/dL (8.4-10.2); Carbon Dioxide 26 mmol/L (22-30); Creatinine 1 0.61 mg/dL (0.52-1.04); Glucose 179 mg/dL (74-106); Potassium 3.9 mmol/L (3.5-5.1); SALICYLATE < 1.0 mg/dL (2-20); SGOT/AST 46 U/L (14-36); SGPT/ALT 34 U/L (0-35); SODIUM 138 mmol/L (137-145); Total Protein 8.1 g/dL (6.3-8.2)
[2019-11-04 23:44] LABS: ANION GAP 15.9 MEQ/L (5-15)
[2019-11-04 23:46] LABS: Hematocrit 41.7 % (35-47); Hemoglobin 13.8 gm/dl (12.0-16.0); Mean Cell Volume 89.7 fl (78-100); Mean Corpuscular Hemoglobin 29.7 pg (26-32); Mean Corpuscular Hgb Concent. 33.1 g/dl (32-36); Mean Platelet Volume 10.1 fl (7.5-11.0); Platelet Count 260 K/mm3 (150-450); Red Blood Count 4.65 M/mm3 (4.1-5.4); White Blood Count 11.3 K/mm3 (4.0-10.5)
[2019-11-04 23:47] LABS: Appearance CLOUDY (CLEAR)
[2019-11-04] MEDS ORDERED: BACTRIM DS TABLET PO ONE (23:47)
[2019-11-04 23:48] LABS: Bilirubin NEGATIVE (NEGATIVE); Blood SMALL Ery/ul (0-5); Glucose NEGATIVE (NEGATIVE); Ketones NEGATIVE (NEGATIVE); Leukocyte Esterase SMALL (NEGATIVE); Mucus SLIGHT /HPF (NEGATIVE); Nitrite NEGATIVE (NEGATIVE); Protein,Urine Dip NEGATIVE (Negative); Specific Gravity 1.006 (1.005-1.025); Urobilinogen NORMAL mg/dL (0-1); WBC 26-50 /HPF (0-5)
[2019-11-04 23:49] LABS: Bacteria MANY /HPF (NEGATIVE); Epithelial Cells RARE /HPF (FEW)
[2019-11-05 01:20] LABS: ETHYL ALCOHOL < 10 mg/dL (0-10)
== END 2019-11-05 03:06 ==
LOC: ED 19:20
DX: S10.91XA Abrasion of unspecified part of neck, initial encounter (principal); S00.81XA Abrasion of other part of head, initial encounter; S60.812A Abrasion of left wrist, initial encounter; S60.519A Abrasion of unspecified hand, initial encounter; S60.419A Abrasion of unspecified finger, initial encounter; X78.8XXA Intentional self-harm by other sharp object, initial encounter
CPT/HCPCS: 36415; 80053; 80307; 81001; 85027; 87077; 87086; 87186; 99284; 99291; G0481; A9270-GY; G0480

== ENCOUNTER 2019-11-12 09:45 | Emergency (ER) | payer MEDICAID ==
[2019-11-12] MEDS ORDERED: Sodium Chloride 0.9% 1000 ML 1,000 ML IV STA (10:05)
[2019-11-12] MEDS ORDERED: Ativan 1 MG PO ONE (10:08)
--- NOTE | 2019-11-12 10:41 | XRAY ---
Indication: Chest pain. Comparison: December 13, 2017. PA/lateral chest demonstrates new minimal lingula discoid atelectasis/scarring and tiny nonspecific left effusion. Remaining heart, lungs, and bony thorax normal.
[2019-11-12] MEDS ORDERED: Ativan 1 MG ONE (10:44)
[2019-11-12] MEDS ORDERED: Sodium Chloride 0.9% 1000 ML 1,000 ML ONE (10:44)
[2019-11-12 10:47] LABS: Absolute Neutrophil Ct (ANC) 11.52 (1.4-6.9); BASOPHIL % 0.3 % (0.0-0.4); Basophil (Absolute #) 0.05 (0-0.4); Eosinophil % 0.2 % (0.00-5.0); Eosinophil (Absolute #) 0.03 (0-0.5); Hematocrit 41.7 % (35-47); Hemoglobin 14.1 gm/dl (12.0-16.0); Lymphocyte (Absolute #) 2.19 (1.0-4.6); Lymphocytes % 15.1 % (24.0-44.0); Mean Corpuscular Hemoglobin 29.7 pg (26-32); Mean Corpuscular Hgb Concent. 33.8 g/dl (32-36); Mean Platelet Volume 9.9 fl (7.5-11.0); Monocyte (Absolute #) 0.69 (0.0-1.3); Monocytes % 4.8 % (0.0-12.0); Neutrophil % 79.6 % (36.0-66.0); Platelet Count 314 K/mm3 (150-450); Red Blood Count 4.74 M/mm3 (4.1-5.4); White Blood Count 14.5 K/mm3 (4.0-10.5)
[2019-11-12 11:06] LABS: ALBUMIN 4.5 g/dL (3.5-5.0); ALKALINE PHOSPHATASE 74 U/L (38-126); ANION GAP 18.8 MEQ/L (5-15); BLOOD UREA NITROGEN 8 mg/dL (7-17); CHLORIDE 102 mmol/L (98-107); CK-Creatinine Phosphokinase < 20 U/L (30-135); Calcium 10.3 mg/dL (8.4-10.2); Carbon Dioxide 25 mmol/L (22-30); Creatinine 1 0.63 mg/dL (0.52-1.04); ETHYL ALCOHOL < 10 mg/dL (0-10); Glucose 174 mg/dL (74-106); MAGNESIUM 1.7 mg/dL (1.6-2.3); Potassium 3.7 mmol/L (3.5-5.1); SGOT/AST 28 U/L (14-36); SGPT/ALT 31 U/L (0-35); SODIUM 142 mmol/L (137-145); Total Protein 8.5 g/dL (6.3-8.2)
--- NOTE | 2019-11-12 11:10 | ERPHSYRPT ---
- History of Present Illness Time Seen by Provider: 11/12/19 10:40 Source: patient Exam Limitations: other Patient Subjective Stated Complaint: PATIENT STATES HAS HAD ANXIETY FOR TWO DAYS. WAS RECENTLY PUT ON HALDOL AND TOOK ONE THIS AM. Triage Nursing Assessment: TO ROOM PER EMS COT. PATIENT VISIBLY SHAKING, TREMORS NOTED. SKIN W/D, COLOR NORMAL, RESP NONLABORED. PATIENT DENIES ANY PAIN OR ILLICIT DRUG USE. Physician History: 39 YO with anxiety/depression is brought in ER via EMS with CC of anxiety / shivering since morning. patient reports generalized shakiness but denies any tonic clonic activity or h/o seizure disorder. denies any fever , chest/ abdominal pain , vomiting or diarrhea. she denies THC /methamphetamine use in last few days. denies any SI/HI. Patient is not a good historian and is limited. Timing/Duration: today, gradual onset Severity of Symptoms-Max: moderate Severity of Symptoms-Current: mild Allergies/Adverse Reactions: [facility] [[facility] Allergy (Verified 11/12/19 10:02) codeine Allergy (Verified 11/12/19 10:02) oxycodone Allergy (Verified 11/12/19 10:02) Penicillins Allergy (Verified 11/12/19 10:02) Home Medications: haloperidoL [Haloperidol] 5 mg PO DAILY 11/12/19 [History] Hx Tetanus, Diphtheria Vaccination/Date Given: No Hx Influenza Vaccination/Date Given: No Hx Pneumococcal Vaccination/Date Given: No - Past Medical History Pertinent Past Medical History: Yes Neurological History: Migraines ENT History: No Pertinent History Cardiac History: No Pertinent History, Hypertension Respiratory History: No Pertinent History Endocrine Medical History: No Pertinent History Musculoskeletal History: No Pertinent History GI Medical History: No Pertinent History History: No Pertinent History Psycho-Social History: Anxiety, Attention Deficit Disorder, Bipolar, Other Other Medical History: schiozophrenia, 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 above hx provided per spouse - Past Surgical History Past Surgical History: Yes Neuro Surgical History: No Pertinent History Cardiac: No Pertinent History Respiratory: No Pertinent History Gastrointestinal: Cholecystectomy Genitourinary: No Pertinent History Female Surgical History: Tubal Ligation - Social History Smoking Status: Current every day smoker How long have you smoked: 2 Exposure to second hand smoke: Yes Drug Use: none Patient Lives Alone: No - Female History Hx Last Menstrual Period: MID SEPTEMBER Hx Now: No - Review of Systems Constitutional: Fatigue Eyes: No Symptoms Ears, Nose, & Throat: No Symptoms Respiratory: No Symptoms Cardiac: Palpitations Abdominal/Gastrointestinal: No Symptoms Genitourinary Symptoms: No Symptoms Musculoskeletal: No Symptoms Skin: No Symptoms Neurological: No Symptoms Psychological: Anxiety, Depression, No Suicidal Ideations, No Homicidal Ideations, No Hallucinations Endocrine: No Symptoms Hematologic/Lymphatic: No Symptoms Immunological/Allergic: No Symptoms - Nursing Vital Signs Nursing Vital Signs: Initial Vital Signs Temperature 99.3 F 11/12/19 09:51 Pulse Rate 141 H 11/12/19 09:51 Respiratory Rate 20 11/12/19 09:51 Blood Pressure 126/94 11/12/19 09:51 O2 Sat by Pulse Oximetry 96 11/12/19 09:51 Pain Scale Pain Intensity 0 - Physical Exam General Appearance: no apparent distress Eyes, Ears, Nose, Throat Exam: normal ENT inspection Neck Exam: normal inspection Respiratory Exam: normal breath sounds, lungs clear, respiratory distress Cardiovascular Exam: regular rate/rhythm, tachycardia Gastrointestinal/Abdominal Exam: soft, normal bowel sounds, No tenderness, No distention Extremities Exam: other (old scar mora b/l wrist ) 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: alert, calm, office administration II-XII nml as tested, oriented x 3 Appearance: appropriate appearance, appropriate insight Behavior/Eye Contact/Speech: alert & cooperative, cooperative, good eye contact , normal speech, avoids eye contact Thoughts/Hallucinations: normal thought pattern Skin Exam: normal color, warm, dry, rash SpO2 Interpretation: normal SpO2: 92 O2 Delivery: Room Air - Course Nursing assessment & vital signs reviewed: Yes EKG Interpreted by Me: RATE ([id number]), Sinus Tach, NORMAL AXIS, NORMAL INTERVALS, Non-specific ST Changes Ordered Tests: Active Orders 24 hr Category Date Time Status 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 Care 11/12/19 10:07 Active EKG-ER Only STAT Care 11/12/19 10:05 Active IV Insertion STAT Care 11/12/19 10:05 Active CHEST 2 VIEWS (PA AND LAT) Stat Exams 11/12/19 10:06 Completed CBC W DIFF Stat Lab 11/12/19 10:30 Completed CK-Creatinine Phosphokinase Stat Lab 11/12/19 10:30 Completed CMP Stat Lab 11/12/19 10:30 Completed ETHYL ALCOHOL Stat Lab 11/12/19 10:30 Completed Lactic Acid Stat Lab 11/12/19 10:05 Completed Lactic Acid Stat Lab 11/12/19 12:47 Received MAGNESIUM Stat Lab 11/12/19 10:30 Completed TROPONIN Q3H Lab 11/12/19 10:30 Completed TROPONIN Q3H Lab 11/12/19 13:25 Completed TROPONIN Q3H Lab 11/12/19 16:15 Ordered TROPONIN Q3H Lab 11/12/19 19:15 Ordered TROPONIN Q3H Lab 11/12/19 22:15 Ordered UA W/RFX UR CULTURE Stat Lab 11/12/19 12:00 Completed Urine Triage Profile Stat Lab 11/12/19 12:00 Completed Medication Summary Discontinued Medications Generic Name Dose Route Start Last Admin Trade Name Freq PRN Reason Stop Dose Admin Sodium Chloride 1,000 mls @ 999 mls/hr 11/12/19 10:05 11/12/19 12:12 Sodium Chloride 0.9% 1000 Ml IV 11/12/19 11:05 Infused .Q1H1M STA Infusion Sodium Chloride Confirm 11/12/19 10:44 Sodium Chloride 0.9% 1000 Ml Administered 11/12/19 10:45 Dose 1,000 mls @ ud .ROUTE .STK-MED ONE Lorazepam 1 mg 11/12/19 10:08 11/12/19 10:45 Ativan 1 Mg PO 11/12/19 10:09 1 mg STAT ONE Administration Lorazepam Confirm 11/12/19 10:44 Ativan 1 Mg Administered 11/12/19 10:45 Dose 1 mg .ROUTE .STK-MED ONE Lab/Rad Data: Laboratory Result Diagrams 11/12/19 10:30 11/12/19 10:30 Laboratory Results 11/12/19 11/12/19 11/12/19 Range/Units 13:25 12:00 12:00 WBC (4.0-10.5) K/mm3 RBC (4.1-5.4) M/mm3 Hgb (12.0-16.0) gm/dl Hct (35-47) % MCV (78-100) fl MCH (26-32) pg MCHC (32-36) g/dl RDW (11.5-14.0) % Plt Count (150-450) K/mm3 MPV (7.5-11.0) fl Gran % (36.0-66.0) % Eos # (Auto) (0-0.5) Absolute Lymphs (auto) (1.0-4.6) Absolute Monos (auto) (0.0-1.3) Lymphocytes % (24.0-44.0) % Monocytes % (0.0-12.0) % Eosinophils % (0.00-5.0) % Basophils % (0.0-0.4) % Absolute Granulocytes (1.4-6.9) Basophils # (0-0.4) Sodium (137-145) mmol/L Potassium (3.5-5.1) mmol/L Chloride (98-107) mmol/L Carbon Dioxide (22-30) mmol/L Anion Gap (5-15) MEQ/L BUN (7-17) mg/dL Creatinine (0.52-1.04) mg/dL Estimated GFR ML/MIN Glucose (74-106) mg/dL Lactic Acid (0.4-2.0) Calcium (8.4-10.2) mg/dL Magnesium (1.6-2.3) mg/dL Total Bilirubin (0.2-1.3) mg/dL AST (14-36) U/L ALT (0-35) U/L Alkaline Phosphatase (38-126) U/L Creatine Kinase (30-135) U/L Troponin I < 0.012 (0.000-0.034) ng/mL Serum Total Protein (6.3-8.2) g/dL Albumin (3.5-5.0) g/dL Urine Color YELLOW (YELLOW) Urine Appearance SLIGHTLY CLOUDY (CLEAR) Urine pH 6.0 (5-6) Ur Specific [place] 1.009 (1.005-1.025) Urine Protein NEGATIVE (Negative) Urine Ketones NEGATIVE (NEGATIVE) Urine Blood NEGATIVE (0-5) Jorge/ul Urine Nitrite NEGATIVE (NEGATIVE) Urine Bilirubin NEGATIVE (NEGATIVE) Urine Urobilinogen 2 (0-1) mg/dL Ur Leukocyte Esterase TRACE (NEGATIVE) Urine WBC (Auto) 3-5 (0-5) /HPF Urine RBC (Auto) NONE (0-2) /HPF U Hyaline Cast (Auto) 6-10 (0-2) /LPF U Epithel Cells (Auto) RARE (FEW) /HPF Urine Bacteria (Auto) RARE (NEGATIVE) /HPF Amorphous Crystals FEW (NEGATIVE) /HPF Urine Mucus (Auto) SLIGHT (NEGATIVE) /HPF Urine Culture Reflexed NO (NO) Urine Glucose NEGATIVE (NEGATIVE) mg/dL Urine Opiates Level NEGATIVE (NEGATIVE) Ur Methadone NEGATIVE (NEGATIVE) Urine Barbiturates NEGATIVE (NEGATIVE) Ur Phencyclidine (PCP) NEGATIVE (NEGATIVE) Urine Amphetamine NEGATIVE (NEGATIVE) U Benzodiazepine Level NEGATIVE (NEGATIVE) Urine Cocaine NEGATIVE (NEGATIVE) Urine Marijuana (THC) NEGATIVE (NEGATIVE) Ethyl Alcohol (0-10) mg/dL 11/12/19 11/12/19 11/12/19 Range/Units 10:30 10:30 10:30 WBC 14.5 H (4.0-10.5) K/mm3 RBC 4.74 (4.1-5.4) M/mm3 Hgb 14.1 (12.0-16.0) gm/dl Hct 41.7 (35-47) % MCV 88.0 (78-100) fl MCH 29.7 (26-32) pg MCHC 33.8 (32-36) g/dl RDW 14.0 (11.5-14.0) % Plt Count 314 (150-450) K/mm3 MPV 9.9 (7.5-11.0) fl Gran % 79.6 H (36.0-66.0) % Eos # (Auto) 0.03 (0-0.5) Absolute Lymphs (auto) 2.19 (1.0-4.6) Absolute Monos (auto) 0.69 (0.0-1.3) Lymphocytes % 15.1 L (24.0-44.0) % Monocytes % 4.8 (0.0-12.0) % Eosinophils % 0.2 (0.00-5.0) % Basophils % 0.3 (0.0-0.4) % Absolute Granulocytes 11.52 H (1.4-6.9) Basophils # 0.05 (0-0.4) Sodium 142 (137-145) mmol/L Potassium 3.7 (3.5-5.1) mmol/L Chloride 102 (98-107) mmol/L Carbon Dioxide 25 (22-30) mmol/L Anion Gap 18.8 H (5-15) MEQ/L BUN 8 (7-17) mg/dL Creatinine 0.63 (0.52-1.04) mg/dL Estimated GFR > 60.0 ML/MIN Glucose 174 H (74-106) mg/dL Lactic Acid (0.4-2.0) Calcium 10.3 H (8.4-10.2) mg/dL Magnesium 1.7 (1.6-2.3) mg/dL Total Bilirubin 0.40 (0.2-1.3) mg/dL AST 28 (14-36) U/L ALT 31 (0-35) U/L Alkaline Phosphatase 74 (38-126) U/L Creatine Kinase < 20 L (30-135) U/L Troponin I < 0.012 (0.000-0.034) ng/mL Serum Total Protein 8.5 H (6.3-8.2) g/dL Albumin 4.5 (3.5-5.0) g/dL Urine Color (YELLOW) Urine Appearance (CLEAR) Urine pH (5-6) Ur Specific [place] (1.005-1.025) Urine Protein (Negative) Urine Ketones (NEGATIVE) Urine Blood (0-5) Jorge/ul Urine Nitrite (NEGATIVE) Urine Bilirubin (NEGATIVE) Urine Urobilinogen (0-1) mg/dL Ur Leukocyte Esterase (NEGATIVE) Urine WBC (Auto) (0-5) /HPF Urine RBC (Auto) (0-2) /HPF U Hyaline Cast (Auto) (0-2) /LPF U Epithel Cells (Auto) (FEW) /HPF Urine Bacteria (Auto) (NEGATIVE) /HPF Amorphous Crystals (NEGATIVE) /HPF Urine Mucus (Auto) (NEGATIVE) /HPF Urine Culture Reflexed (NO) Urine Glucose (NEGATIVE) mg/dL Urine Opiates Level (NEGATIVE) Ur Methadone (NEGATIVE) Urine Barbiturates (NEGATIVE) Ur Phencyclidine (PCP) (NEGATIVE) Urine Amphetamine (NEGATIVE) U Benzodiazepine Level (NEGATIVE) Urine Cocaine (NEGATIVE) Urine Marijuana (THC) (NEGATIVE) Ethyl Alcohol < 10 (0-10) mg/dL 11/12/19 Range/Units 10:05 WBC (4.0-10.5) K/mm3 RBC (4.1-5.4) M/mm3 Hgb (12.0-16.0) gm/dl Hct (35-47) % MCV (78-100) fl MCH (26-32) pg MCHC (32-36) g/dl RDW (11.5-14.0) % Plt Count (150-450) K/mm3 MPV (7.5-11.0) fl Gran % (36.0-66.0) % Eos # (Auto) (0-0.5) Absolute Lymphs (auto) (1.0-4.6) Absolute Monos (auto) (0.0-1.3) Lymphocytes % (24.0-44.0) % Monocytes % (0.0-12.0) % Eosinophils % (0.00-5.0) % Basophils % (0.0-0.4) % Absolute Granulocytes (1.4-6.9) Basophils # (0-0.4) Sodium (137-145) mmol/L Potassium (3.5-5.1) mmol/L Chloride (98-107) mmol/L Carbon Dioxide (22-30) mmol/L Anion Gap (5-15) MEQ/L BUN (7-17) mg/dL Creatinine (0.52-1.04) mg/dL Estimated GFR ML/MIN Glucose (74-106) mg/dL Lactic Acid 2.5 H (0.4-2.0) Calcium (8.4-10.2) mg/dL Magnesium (1.6-2.3) mg/dL Total Bilirubin (0.2-1.3) mg/dL AST (14-36) U/L ALT (0-35) U/L Alkaline Phosphatase (38-126) U/L Creatine Kinase (30-135) U/L Troponin I (0.000-0.034) ng/mL Serum Total Protein (6.3-8.2) g/dL Albumin (3.5-5.0) g/dL Urine Color (YELLOW) Urine Appearance (CLEAR) Urine pH (5-6) Ur Specific [place] (1.005-1.025) Urine Protein (Negative) Urine Ketones (NEGATIVE) Urine Blood (0-5) Jorge/ul Urine Nitrite (NEGATIVE) Urine Bilirubin (NEGATIVE) Urine Urobilinogen (0-1) mg/dL Ur Leukocyte Esterase (NEGATIVE) Urine WBC (Auto) (0-5) /HPF Urine RBC (Auto) (0-2) /HPF U Hyaline Cast (Auto) (0-2) /LPF U Epithel Cells (Auto) (FEW) /HPF Urine Bacteria (Auto) (NEGATIVE) /HPF Amorphous Crystals (NEGATIVE) /HPF Urine Mucus (Auto) (NEGATIVE) /HPF Urine Culture Reflexed (NO) Urine Glucose (NEGATIVE) mg/dL Urine Opiates Level (NEGATIVE) Ur Methadone (NEGATIVE) Urine Barbiturates (NEGATIVE) Ur Phencyclidine (PCP) (NEGATIVE) Urine Amphetamine (NEGATIVE) U Benzodiazepine Level (NEGATIVE) Urine Cocaine (NEGATIVE) Urine Marijuana (THC) (NEGATIVE) Ethyl Alcohol (0-10) mg/dL - Progress Progress: improved, re-examined Progress Note: the patient was very anxious on presentation with tachycardia heart rate in the 130s/140s. She is given IV fluids and 1 mg of Ativan orally, she is much more calm down on reevaluation but heart rate improved and 70s. She has a negative troponins x2. She is a lactate of 2.4 with a limited gap which I believe is secondary to dehydration. She does not seem septic at all. She does admit to using drugs although her drug screen is negative, might have used symptomatic. He does not have a toxic appearance. She has no suicidal or homicidal ideations, I have asked her multiple times for different ways and she refused. At this point I have counseled patient about not using drugs and she agreed that she will try. Patient is being discharge with outpatient followup with primary care. 11/12/19 14:14 Counseled pt/family regarding: drug and/or alcohol abuse, lab results, diagnosis , need for follow-up, rad results, smoking cessation - Departure Departure Disposition: Home Clinical Impression: Anxiety, Dehydration Condition: Fair Critical Care Time: No Referrals: DOCTOR,NO FAMILY [Primary Care Provider] - HARMAN JACOME [ACTIVE STAFF] - Follow Up with PCP/3 days Instructions: Anxiety, Adult (DC) Additional Instructions: do not smoke or use drugs. Drink plenty of fluids. Followup with primary care for reevaluation. Return to ER for chest pain palpitations or shortness of breath. Call 911/return to ER if has any suicidal or homicidal ideations.
[2019-11-12 12:17] LABS: Amourphous Crystal FEW /HPF (NEGATIVE); Appearance SLIGHTLY CLOUDY (CLEAR); Bacteria RARE /HPF (NEGATIVE); Bilirubin NEGATIVE (NEGATIVE); Blood NEGATIVE Ery/ul (0-5); Epithelial Cells RARE /HPF (FEW); Glucose NEGATIVE (NEGATIVE); Ketones NEGATIVE (NEGATIVE); Leukocyte Esterase TRACE (NEGATIVE); Mucus SLIGHT /HPF (NEGATIVE); Nitrite NEGATIVE (NEGATIVE); Protein,Urine Dip NEGATIVE (Negative); Specific Gravity 1.009 (1.005-1.025); Urobilinogen 2 mg/dL (0-1)
[2019-11-12 12:28] LABS: Amphetamine,Urine NEGATIVE (NEGATIVE); Barbiturate,Urine NEGATIVE (NEGATIVE); Benzodiazepine,Urine NEGATIVE (NEGATIVE); Cocaine,Urine NEGATIVE (NEGATIVE); Methadone,Urine NEGATIVE (NEGATIVE); Opiate,Urine NEGATIVE (NEGATIVE); PCP,Urine NEGATIVE (NEGATIVE); THC,Urine NEGATIVE (NEGATIVE)
[2019-11-12 15:06] VITALS: BP 96/72; PULSE 84; O2SAT 97
== END 2019-11-12 15:05 | disposition home or self-care (01) ==
LOC: ED 09:45
DX: F41.9 Anxiety disorder, unspecified (principal); E86.0 Dehydration
CPT/HCPCS: 36000; 36415; 71046; 80053; 80307; 81001; 82550; 83605; 83735; 84484; 85025; 93005; 93041; 96360; 99284; A9270-GY; G0480

== ENCOUNTER 2019-12-01 08:15 | Emergency (ER) | payer MEDICAID ==
[2019-12-01] MEDS ORDERED: BENADRYL 50 MG/ML IM ONE (08:32)
[2019-12-01] MEDS ORDERED: BENADRYL 50 MG/ML ONE (08:40)
--- NOTE | 2019-12-01 08:40 | ERPHSYRPT ---
- History of Present Illness Source: patient Exam Limitations: no limitations Patient Subjective Stated Complaint: Patient feeling anxious. No homicidal or suicidal ideation Physician History: Patient is a 39-year-old female with a history of anxiety and depression. Patient is in our ED today with complaints of anxiety. Patient states that she is generally afraid of people. She has noticed an increased number of [place] and [place] Patient states this has made her very anxious. No homicidal or suicidal ideation. Symptoms started 11:00 last night. Symptoms have been ongoing. She has no other complaints. No pain. No fevers. No heart palpitations. No chest pain or shortness of breath. Patient is otherwise asymptomatic. Daughter at bedside. They voiced no other complaints or concerns at this time. Timing/Duration: yesterday Severity of Symptoms-Max: moderate Severity of Symptoms-Current: moderate Context related to: other (Context related to increased traffic in and out of [place] Suicidal thoughts: other (No homicidal suicidal ideation.) Associated Symptoms: depressed (Patient states she feels somewhat depressed. She is not homicidal or suicidal.), No angry, No agitated, No confused, No frustrated, No hostile, No hallucinating, No impaired concentration Previous symptoms: same symptoms as today Allergies/Adverse Reactions: cefaclor [From Ceclor] Allergy (Verified 12/01/19 08:28) codeine Allergy (Verified 12/01/19 08:28) oxycodone Allergy (Verified 12/01/19 08:28) Penicillins Allergy (Verified 12/01/19 08:28) Home Medications: haloperidoL [Haloperidol] 5 mg PO DAILY 11/12/19 [History] Prazosin HCl [Minipress] 5 mg PO HS 12/01/19 [History] Hx Tetanus, Diphtheria Vaccination/Date Given: No Hx Influenza Vaccination/Date Given: No Hx Pneumococcal Vaccination/Date Given: No - Past Medical History Pertinent Past Medical History: Yes Neurological History: Migraines ENT History: No Pertinent History Cardiac History: No Pertinent History, Hypertension Respiratory History: No Pertinent History Endocrine Medical History: No Pertinent History Musculoskeletal History: No Pertinent History GI Medical History: No Pertinent History History: No Pertinent History Psycho-Social History: Anxiety, Attention Deficit Disorder, Bipolar, Other Other Medical History: schiozophrenia, 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 above hx provided per spouse - Past Surgical History Past Surgical History: Yes Neuro Surgical History: No Pertinent History Cardiac: No Pertinent History Respiratory: No Pertinent History Gastrointestinal: Cholecystectomy Genitourinary: No Pertinent History Female Surgical History: Tubal Ligation - Social History Smoking Status: Current every day smoker How long have you smoked: 2 Exposure to second hand smoke: Yes Drug Use: none Patient Lives Alone: No - Review of Systems Constitutional: No Fever, No Chills Eyes: No Symptoms Ears, Nose, & Throat: No Symptoms Respiratory: No Symptoms, No Cough, No Dyspnea Cardiac: No Symptoms, No Chest Pain, No Edema, No Syncope Abdominal/Gastrointestinal: No Symptoms, No Abdominal Pain, No Nausea, No Vomiting, No Diarrhea Genitourinary Symptoms: No Symptoms, No Dysuria Musculoskeletal: No Symptoms, No Back Pain, No Neck Pain Skin: No Symptoms, No Rash Neurological: No Symptoms, No Dizziness, No Focal Weakness, No Sensory Changes Psychological: No Symptoms Endocrine: No Symptoms All Other Systems: Reviewed and Negative - Nursing Vital Signs Nursing Vital Signs: Initial Vital Signs Temperature 98 F 12/01/19 08:19 Respiratory Rate 18 12/01/19 08:19 Pain Scale Pain Intensity 0 - Physical Exam General Appearance: no apparent distress, other (Patient sitting up in bed. She is conversant well-appearing and in no acute distress. Patient does not appear anxious however she states she feels anxious.) Eyes, Ears, Nose, Throat Exam: normal ENT inspection, moist mucous membranes Neck Exam: normal inspection, non-tender, supple Respiratory Exam: normal breath sounds, lungs clear, No respiratory distress Cardiovascular Exam: regular rate/rhythm, No edema Gastrointestinal/Abdominal Exam: soft, No tenderness, No distention Extremities Exam: normal inspection, normal range of motion, No evidence of injury, No edema Current Suicidality: denies suicide plan 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: alert, cook candy II-XII nml as tested, oriented x 3 Appearance: appropriate appearance, appropriate insight, neat, No no memory impairment, No denies illness, No impaired insight, No impaired recent memory, No impaired remote memory Behavior/Eye Contact/Speech: alert & cooperative, good eye contact, normal speech, No avoids eye contact, No refused to answer, No threatening eye contact , No decreased rate of speech, No increased rate of speech, No belligerent, No uncooperative, No agitated, No intoxicated appearance Thoughts/Hallucinations: normal thought pattern, No no apparent hallucination, No auditory hallucinations, No delusions, No flight of ideas, No obsessive, No visual hallucinations Skin Exam: normal color, warm, dry, No rash SpO2 Interpretation: normal O2 Delivery: Room Air Ordered Tests: Medication Summary Discontinued Medications Generic Name Dose Route Start Last Admin Trade Name Mike PRN Reason Stop Dose Admin Diphenhydramine HCl 25 mg 12/01/19 08:32 12/01/19 08:42 Benadryl 50 Mg/Ml IM 12/01/19 08:33 25 mg STAT ONE Administration Diphenhydramine HCl Confirm 12/01/19 08:40 Benadryl 50 Mg/Ml Administered 12/01/19 08:41 Dose 50 mg .ROUTE .Purple Harry-MED ONE - Progress Progress: improved Progress Note: 12/01/19 08:40 Patient received an intramuscular dose of Benadryl. Patient reassessed. Anxiety improved but not completely resolved. 12/01/19 09:18 Patient sleeping in the room. Patient is feeling well. Anxiety resolved. Patient requesting discharge. Counseled pt/family regarding: drug and/or alcohol abuse, diagnosis - Departure Departure Disposition: Home Clinical Impression: Anxiety Condition: Stable Critical Care Time: No Referrals: DOCTOR,NO FAMILY [Primary Care Provider] - Additional Instructions: Discharge/Care Plan COLLINYEISON COBOS was seen on 12/01/19 in the Emergency Room. The patient was counseled regarding Diagnosis,Lab results, Imaging studies, need for follow up and when to return to the Emergency Room. Prescriptions given: Discharge Note I have spoken with the patient and/or caregivers. I have explained the patient' s condition, diagnosis and treatment plan based on the information available to me at this time. I have answered the patient's and/or caregiver's questions and addressed any concerns. The patient and/or caregivers have as good understanding of the patient's diagnosis, condition and treatment plan as can be expected at this point. The vital signs have been stable. The patient's condition is stable and appropriate for discharge from the emergency department. The patient will pursue further outpatient evaluation with the primary care physician or other designated or consulting physician as outlined in the discharge instructions. The patient and/or caregivers are agreeable to this plan of care and follow-up instructions have been explained in detail. The patient and/or caregivers have received these instruction. The patient/and or caregivers are aware that any significant change in condition or worsening of symptoms should prompt an immediate return to this or the closest emergency department or call 911.
[2019-12-01 09:52] VITALS: BP 118/84; PULSE 102; O2SAT 99
== END 2019-12-01 09:52 | disposition home or self-care (01) ==
LOC: ED 08:15
DX: F41.9 Anxiety disorder, unspecified (principal); I10 Essential (primary) hypertension; F31.9 Bipolar disorder, unspecified; F20.9 Schizophrenia, unspecified
CPT/HCPCS: 96372; 99283; J1200

== ENCOUNTER 2020-01-18 21:05 | Emergency (ER) | payer MEDICAID, OTHER ==
--- NOTE | 2020-01-18 21:09 | ERPHSYRPT ---
- History of Present Illness Time Seen by Provider: 01/18/20 21:09 Source: patient Exam Limitations: no limitations Physician History: 39 y/o white female with psychiatric issues including panic attacks. she is not suicidal or homicidal. concerned about coronavirus and possibly dying from it. she is afebrile and oxygenating 100% room air Timing/Duration: today Severity of Symptoms-Max: moderate Severity of Symptoms-Current: moderate Context related to: living circumstances Suicidal thoughts: other (none) Associated Symptoms: anxiety, No hallucinating Previous symptoms: same symptoms as today Allergies/Adverse Reactions: cefaclor [From Ceclor] Allergy (Verified 01/18/20 21:22) codeine Allergy (Verified 01/18/20 21:22) oxycodone Allergy (Verified 01/18/20 21:22) Penicillins Allergy (Verified 01/18/20 21:22) Home Medications: haloperidoL [Haloperidol] 5 mg PO DAILY 11/12/19 [History] Prazosin HCl [Minipress] 5 mg PO HS 12/01/19 [History] LORazepam [Lorazepam] 1 mg PO BID 01/18/20 [History] Hx Tetanus, Diphtheria Vaccination/Date Given: No Hx Influenza Vaccination/Date Given: No Hx Pneumococcal Vaccination/Date Given: No Travel Risk - International Travel Have you traveled outside of the country in past 3 weeks: No Have you or anyone close to you been diagnosed with or: No Do your reside in a community with a known COVID-19 case?: Yes If Yes where:: [facility] - Past Medical History Pertinent Past Medical History: Yes Neurological History: Migraines ENT History: No Pertinent History Cardiac History: No Pertinent History, Hypertension Respiratory History: No Pertinent History Endocrine Medical History: No Pertinent History Musculoskeletal History: No Pertinent History GI Medical History: No Pertinent History History: No Pertinent History Psycho-Social History: Anxiety, Attention Deficit Disorder, Bipolar, Other Other Medical History: schiozophrenia, 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 above hx provided per spouse - Past Surgical History Past Surgical History: Yes Neuro Surgical History: No Pertinent History Cardiac: No Pertinent History Respiratory: No Pertinent History Gastrointestinal: Cholecystectomy Genitourinary: No Pertinent History Female Surgical History: Tubal Ligation - Social History Smoking Status: Current every day smoker How long have you smoked: 2 Exposure to second hand smoke: Yes Drug Use: none Patient Lives Alone: No - Review of Systems Constitutional: No Symptoms Eyes: No Symptoms Ears, Nose, & Throat: No Symptoms Respiratory: No Symptoms Cardiac: No Symptoms Abdominal/Gastrointestinal: No Symptoms Genitourinary Symptoms: No Symptoms Musculoskeletal: No Symptoms Skin: No Symptoms Psychological: Anxiety Endocrine: No Symptoms Hematologic/Lymphatic: No Symptoms Immunological/Allergic: No Symptoms All Other Systems: Reviewed and Negative - Nursing Vital Signs Nursing Vital Signs: Initial Vital Signs Temperature 98.0 F 01/18/20 21:12 Pulse Rate 75 01/18/20 21:12 Respiratory Rate 01/18/20 21:12 Blood Pressure 141/103 01/18/20 21:12 O2 Sat by Pulse Oximetry 97 01/18/20 21:12 Pain Scale Pain Intensity 6 - Physical Exam General Appearance: no apparent distress, alert, anxiety Eyes, Ears, Nose, Throat Exam: normal ENT inspection, moist mucous membranes Neck Exam: normal inspection, non-tender, supple, full range of motion Respiratory Exam: normal breath sounds, lungs clear, airway intact, No chest tenderness, No respiratory distress Cardiovascular Exam: regular rate/rhythm, normal heart sounds, normal peripheral pulses Gastrointestinal/Abdominal Exam: soft, normal bowel sounds, No tenderness 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: 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, 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, anxious Behavior/Eye Contact/Speech: alert & cooperative Thoughts/Hallucinations: normal thought pattern, no apparent hallucination Skin Exam: normal color, warm, dry SpO2 Interpretation: normal O2 Delivery: Room Air Ordered Tests: Medication Summary Discontinued Medications Generic Name Dose Route Start Last Admin Trade Name Mike PRN Reason Stop Dose Admin Lorazepam 1 mg 01/18/20 21:35 01/18/20 21:40 Ativan 2 Mg/1 Ml Vial IM 01/18/20 21:36 1 mg STAT ONE Administration Lorazepam Confirm 01/18/20 21:38 Ativan 2 Mg/1 Ml Vial Administered 01/18/20 21:39 Dose 2 mg .ROUTE .STK-MED ONE - Progress Progress: improved Counseled pt/family regarding: diagnosis, need for follow-up - Departure Departure Disposition: Home Clinical Impression: Panic anxiety syndrome Condition: Stable Critical Care Time: No Referrals: DOCTOR,NO FAMILY [Primary Care Provider] - Additional Instructions: follow up with [facility] in the morning for further management
[2020-01-18] MEDS ORDERED: Ativan 2 MG/1 ML VIAL IM ONE (21:35)
[2020-01-18] MEDS ORDERED: Ativan 2 MG/1 ML VIAL ONE (21:38)
[2020-01-18 22:29] VITALS: BP 112/81; PULSE 109; O2SAT 99
== END 2020-01-18 22:29 | disposition home or self-care (01) ==
LOC: ED 21:05
DX: F41.0 Panic disorder [episodic paroxysmal anxiety] (principal); I10 Essential (primary) hypertension; Z72.0 Tobacco use; F31.9 Bipolar disorder, unspecified; F20.9 Schizophrenia, unspecified
CPT/HCPCS: 96372; 99283; J2060

== ENCOUNTER 2020-01-27 21:07 | Emergency (ER) | payer OTHER | END 2020-01-27 21:45 | LOC: ED 21:07 | DX: Z53.9 Procedure and treatment not carried out, unspecified reason (principal) ==

== ENCOUNTER 2020-04-06 13:47 | Emergency (ER) | payer MEDICAID, OTHER ==
[2020-04-06 13:59] VITALS: O2SAT 98
[2020-04-06 15:21] VITALS: BP 110/62
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
[2020-04-06 16:14] VITALS: PULSE 118
== END 2020-04-06 17:06 | disposition home or self-care (01) ==
LOC: ED 13:47
DX: F32.9 Major depressive disorder, single episode, unspecified (principal); F41.9 Anxiety disorder, unspecified; Z79.899 Other long term (current) drug therapy; I10 Essential (primary) hypertension
CPT/HCPCS: 90791; 99284; Q3014

== ENCOUNTER 2021-07-24 07:02 | Day surgery (SDC) | payer OTHER ==
[2021-07-24] MEDS ORDERED: Lactated Ringers 1,000 ML IV SCH (07:30)
[2021-07-24] MEDS ORDERED: Sodium Chloride 0.9% 1000 ML 1,000 ML ONE (07:44)
[2021-07-24] MEDS ORDERED: Lactated Ringers 1,000 ML IV ONE (08:00)
[2021-07-24] MEDS ORDERED: VIBRAMYCIN 100 MG*** 100 MG in Dextrose 5%/Water IV Soln. 100ML PLUS BAG 100 ML IV SCH (10:00)
[2021-07-24] MEDS ORDERED: Versed 2 MG/2 ML Injection ONE (10:06)
[2021-07-24] MEDS ORDERED: TORAdol 30 mg Injection ONE (10:09)
[2021-07-24] MEDS ORDERED: DIPRIVAN 200 MG/20 ML IV ONE ×2 (10:09→10:35)
[2021-07-24] MEDS ORDERED: Zofran 4 MG/2 ML VIAL ONE ×2 (10:09→11:02)
[2021-07-24] MEDS ORDERED: SUBLIMAZE 100 MCG/2 ML ONE ×2 (10:09→10:36)
[2021-07-24] MEDS ORDERED: Quelicin Fliptop 200 MG/10 ML ONE (10:15)
[2021-07-24] MEDS ORDERED: Proair Hfa MDI IH ONE (10:44)
[2021-07-24] MEDS ORDERED: Compazine 10 MG/2 ML ONE (11:03)
[2021-07-24 11:50] VITALS: BP 133/84; PULSE 79; O2SAT 90
--- NOTE | 2021-07-25 07:55 | OP ---
SURGERY DATE/TIME: 07/24/2021 1015 PREOPERATIVE DIAGNOSIS: Menorrhagia. POSTOPERATIVE DIAGNOSIS: Menorrhagia. PROCEDURE: Hysteroscopy, D&C. SURGEON: Crispin Rhodes D.O. PRIVACY COMPLIANCE MANAGER: Denice Regalado rn surgical. ANESTHESIA: General. ESTIMATED BLOOD LOSS: Minimal. COMPLICATIONS: None. INDICATIONS: The risks, benefits, indications and alternatives of the procedure were reviewed with the patient prior to the procedure. The patient understood the risk of infection, bleeding, bowel injury, bladder injury, ureteral injury, uterine perforation, pelvic infection associated with the surgery however desires to have this surgery as a possible means to alleviate her current medical condition. DESCRIPTION OF PROCEDURE AND FINDINGS: At this point the patient is taken to the operating room, given general sedation, placed in dorsal lithotomy position, prepped and draped in the usual sterile fashion. A weighted speculum is then placed in the patient's vagina and the anterior lip of the cervix was grasped with a single tooth tenaculum. Endocervical dilators were advanced through the endocervical canal as a means to dilate the cervix. At this point a 5 mm hysteroscope is then placed through the endocervical canal where visualization of the endometrial cavity appeared to be within normal limits. There were no gross abnormalities that were noted. From this point the hysteroscope was then removed and the curette was then placed into the fundus of the uterus and curettage performed in all quadrants of the uterus retrieving a mild to moderate amount of endometrial tissue. From this point hemostasis was obtained. At this point all instruments were removed from the patient's vaginal region. The patient was then taken out of the dorsal lithotomy position, was taken out of anesthesia and was then taken to the recovery room in stable condition. All instruments and laps were accounted for x2.
== END 2021-07-24 12:00 | disposition home or self-care (01) ==
LOC: SDC 07:02
PROVIDERS: ATTEND Obstetrics & Gynecology
DX: N92.0 Excessive and frequent menstruation with regular cycle (principal); E11.9 Type 2 diabetes mellitus without complications; Z79.899 Other long term (current) drug therapy
CPT/HCPCS: 58558; 82947; 84703; 88305; J0330; J1885; J2250; J2405; J2704; J3010; A9270-GY

== ENCOUNTER 2021-08-21 06:18 | Day surgery (SDC) | payer OTHER ==
[2021-08-21] MEDS ORDERED: Lactated Ringers 1,000 ML IV SCH (06:30)
[2021-08-21] MEDS ORDERED: VIBRAMYCIN 100 MG*** 100 MG in Dextrose 5%/Water IV Soln. 100ML PLUS BAG 100 ML IV ONE (07:15)
[2021-08-21] MEDS ORDERED: SUBLIMAZE 100 MCG/2 ML ONE ×2 (08:16→09:04)
[2021-08-21] MEDS ORDERED: DIPRIVAN 200 MG/20 ML IV ONE (08:16)
[2021-08-21] MEDS ORDERED: Zofran 4 MG/2 ML VIAL ONE (08:16)
[2021-08-21] MEDS ORDERED: Versed 2 MG/2 ML Injection ONE (08:16)
[2021-08-21] MEDS ORDERED: Zemuron 100 MG/10 ML ONE (08:16)
[2021-08-21] MEDS ORDERED: Quelicin Fliptop 200 MG/10 ML ONE (08:42)
[2021-08-21 09:46] VITALS: O2SAT 94
[2021-08-21 10:20] VITALS: BP 122/81; PULSE 74
--- NOTE | 2021-08-22 10:37 | OP ---
SURGERY DATE/TIME: 08/21/2021 0829 PREOPERATIVE DIAGNOSIS: Menorrhagia. POSTOPERATIVE DIAGNOSIS: Menorrhagia. PROCEDURE: Endometrial ablation via NovaSure. SURGEON: Crispin Rhodes D.O. HOSPITAL NURSE: Ferdinand Harley surgical aides teacher. ANESTHESIA: General. ESTIMATED BLOOD LOSS: Minimal. COMPLICATIONS: None. INDICATIONS: The risks, benefits, indications and alternatives of the procedure were reviewed with the patient prior to procedure. The patient understood the risk of infection, bleeding, bowel injury, bladder injury, ureteral injury, uterine perforation, pelvic infection associated with the surgery and desires to have this surgery as a possible means to alleviate her current medical condition. DESCRIPTION OF PROCEDURE AND FINDINGS: At this point the patient is taken to the operating room, given general sedation, placed in dorsal lithotomy position, prepped and draped in the usual sterile fashion. A weighted speculum is then placed in the patient's vagina and the anterior lip of the cervix is grasped with a single tooth tenaculum. Endocervical dilators were advanced through the endocervical canal as a means to dilate the cervix and the uterus was sounded to approximately 9 to 10 cm. The patient has had a previous hysteroscopy D&C just a few weeks ago and at this point the NovaSure instrument is then placed in through the endocervical canal where it reached the fundus and retracted approximately 1 cm with a measurement of 6.5 cm. The instrument was engaged and a width of 3.2 cm and after engagement the machine was turned on for an ablative time of 1 minutes and 12 seconds. After completion of ablation, the instrument was disengaged and removed from the uterine cavity without complication. The ablative time was again 1 minute and 12 seconds. At this time all instruments were removed from the patient's vaginal region. The patient is then taken out of the dorsal lithotomy position and was then taken out of anesthesia and was then taken to the recovery room in stable condition. All instruments and laps were accounted for x2.
== END 2021-08-21 10:15 | disposition home or self-care (01) ==
LOC: SDC 06:18
PROVIDERS: ATTEND Obstetrics & Gynecology
DX: N92.0 Excessive and frequent menstruation with regular cycle (principal); E11.9 Type 2 diabetes mellitus without complications; Z79.899 Other long term (current) drug therapy
CPT/HCPCS: 82947; 84703; J0330; J2250; J2405; J2704; J3010

== ENCOUNTER 2022-05-14 09:03 | Inpatient (IN) | payer OTHER ==
[~2022-05-14 09:03] MED LIST: Lactated Ringers 1,000 ML IV ONE; Sensorcaine 0.25% 10 ML ONE
[2022-05-14] MEDS ORDERED: Lactated Ringers 1,000 ML IV ONE (09:23)
[2022-05-14] MEDS ORDERED: Lactated Ringers 1,000 ML IV SCH (09:30)
[2022-05-14] MEDS ORDERED: CLINDAMYCIN-D5W 900 MG/50 ML*** 900 MG/50 ML BAG IV SCH (09:30)
[2022-05-14] MEDS ORDERED: Astramorph-Pf 5 MG/10 ML ONE (09:41)
[2022-05-14] MEDS ORDERED: NEURONTIN PO ONE (09:47)
[2022-05-14] MEDS ORDERED: OFIRMEV 1,000 MG/100 ML ML IV ONE (09:49)
[2022-05-14] MEDS ORDERED: Xylocaine-Mpf 2% 5 Ml Vial ONE (09:50)
[2022-05-14] MEDS ORDERED: Zemuron 100 MG/10 ML ONE (09:50)
[2022-05-14] MEDS ORDERED: SUBLIMAZE 100 MCG/2 ML ONE (09:50)
[2022-05-14] MEDS ORDERED: BRIDION 200MG/2ML IV ONE (09:50)
[2022-05-14] MEDS ORDERED: Zofran 4 MG/2 ML VIAL ONE (09:50)
[2022-05-14] MEDS ORDERED: DIPRIVAN 200 MG/20 ML IV ONE (09:50)
[2022-05-14] MEDS ORDERED: TORAdol 30 mg Injection ONE (09:50)
[2022-05-14] MEDS ORDERED: Decadron 4 MG INJ ONE ×2 (09:50→12:02)
[2022-05-14] MEDS ORDERED: Versed 2 MG/2 ML Injection ONE ×2 (09:57→10:51)
[2022-05-14 10:02] LABS: Hemoglobin 12.9 g/dL (12.0-16.0); Mean Cell Volume 84.4 fL (78-100); Mean Corpuscular Hemoglobin 27.2 pg (26-32); Mean Corpuscular Hgb Concent. 32.3 g/dL (32-36); Mean Platelet Volume 9.9 fL (7.5-11.0); Platelet Count 301 x10^3/uL (150-450); Red Blood Count 4.74 x10^6/uL (4.1-5.4); Red Cell Distribution Width 14.8 % (11.5-14.0); White Blood Count 12.6 x10^3/uL (4.0-10.5)
[2022-05-14 10:14] LABS: ALBUMIN 3.9 g/dL (3.5-5.0); ALKALINE PHOSPHATASE 88 U/L (38-126); BLOOD UREA NITROGEN 8 mg/dL (7-17); CHLORIDE 103 mmol/L (98-107); Calcium 9.1 mg/dL (8.4-10.2); Carbon Dioxide 26 mmol/L (22-30); Creatinine 1 0.64 mg/dL (0.52-1.04); EST GLOMERULAR FILTRATION RATE > 60.0 ML/MIN; Glucose 166 mg/dL (74-106); Potassium 3.8 mmol/L (3.5-5.1); SGOT/AST 23 U/L (14-36); SGPT/ALT 21 U/L (0-35); SODIUM 137 mmol/L (137-145); Total Protein 7.2 g/dL (6.3-8.2)
[2022-05-14 10:40] LABS: INFLUENZA A NEGATIVE (NEGATIVE); INFLUENZA B NEGATIVE (NEGATIVE); RESPIRATORY SYNCTIAL VIRUS NEGATIVE (Negative); SARS-CoV-2 Xpert Express NEGATIVE (NEGATIVE)
[2022-05-14 10:44] LABS: ABO TYPING O; Antibody Screen NEGATIVE (NEGATIVE); RH TYPING POSITIVE
[2022-05-14] MEDS ORDERED: Versed 2 MG/2 ML Injection IV PRN (10:55)
[2022-05-14] MEDS ORDERED: Ephedrine Sulfate 50 MG/ML ONE (11:39)
[2022-05-14] MEDS ORDERED: Marcaine 0.5%/Epinephrine 10 ML ONE (12:02)
[2022-05-14] MEDS ORDERED: Compazine 10 MG/2 ML ONE (12:52)
[2022-05-14 13:33] LABS: Epithelial Cells RARE /HPF (FEW); Mucus SLIGHT /HPF (NEGATIVE)
[2022-05-14 13:40] LABS: Appearance CLEAR (CLEAR); Bilirubin NEGATIVE (NEGATIVE); Dipstick done @ ? MAIN LAB; Glucose NEGATIVE (NEGATIVE); Ketones NEGATIVE (NEGATIVE); Nitrite NEGATIVE (NEGATIVE); Ph 6.5 (5-6); Protein,Urine Dip NEGATIVE (Negative); RBC TRACE-INTACT Ery/ul (0-5); Specific Gravity 1.025 (1.005-1.025); Urobilinogen 1 mg/dL (0-1)
[2022-05-14] MEDS ORDERED: Zofran 4 MG/2 ML VIAL IV PRN (13:40)
[2022-05-14] MEDS ORDERED: IBUPROFEN 800 MG PO PRN (13:46)
[2022-05-14] MEDS ORDERED: Reglan 10 MG/2 ML IV SCH (14:00)
[2022-05-14] MEDS ORDERED: Mylicon 80MG PO SCH (14:00)
[2022-05-14] MEDS ORDERED: NON-FORMULARY ITEM (Hydroxyzine Hcl [Hydroxyzine Hcl] 50 MG Tablet) PO SCH (14:00)
[2022-05-14] MEDS ORDERED: NON-FORMULARY ITEM (Semaglutide [Ozempic] 1 MG/0.75 ML Pen.Injctr) SQ SCH (14:00)
[2022-05-14] MEDS ORDERED: HUMALOG SQ SCH (14:00)
[2022-05-14] MEDS ORDERED: PATIENT OWN MEDICATION SQ PRN (14:04)
[2022-05-14] MEDS ORDERED: MOTRIN 400 MG PO PRN (14:07)
[2022-05-14] MEDS ORDERED: MEDICATION INTERVENTION MC SCH (14:15)
[2022-05-14] MEDS: ZOLOFT 50 MG TABLET PO SCH (14:36)
[2022-05-14] MEDS: Docusate Sodium 100 MG PO SCH ×2 (14:36→21:54)
[2022-05-14] MEDS: Protonix 40MG Tablet PO SCH (14:37)
[2022-05-14] MEDS: Lactated Ringers 1,000 ML IV SCH ×2 (14:37→21:53)
[2022-05-14] MEDS: TORAdol 30 mg Injection IV PRN (16:10)
[2022-05-14] MEDS: CLINDAMYCIN-D5W 900 MG/50 ML*** 900 MG/50 ML BAG IV SCH (17:04)
[2022-05-14] MEDS: BENADRYL 25 MG CAPSULE PO ONE ×2 (17:04→17:34)
[2022-05-14 18:43] LABS: Hemoglobin 12.1 g/dL (12.0-16.0); Mean Cell Volume 85.8 fL (78-100); Mean Corpuscular Hemoglobin 27.3 pg (26-32); Mean Corpuscular Hgb Concent. 31.8 g/dL (32-36); Mean Platelet Volume 9.8 fL (7.5-11.0); Platelet Count 291 x10^3/uL (150-450); Red Blood Count 4.43 x10^6/uL (4.1-5.4); Red Cell Distribution Width 14.8 % (11.5-14.0); White Blood Count 20.7 x10^3/uL (4.0-10.5)
[2022-05-14] MEDS ORDERED: HALDOL PO SCH (22:00)
[2022-05-14] MEDS ORDERED: HALOPERIDOL 2 MG PO SCH (22:00)
[2022-05-14] MEDS ORDERED: Ambien 10 MG PO SCH (22:00)
[2022-05-14] MEDS: ATARAX 25 MG PO SCH (22:01)
[2022-05-15] MEDS ORDERED: BENADRYL 25 MG CAPSULE PO PRN (00:08)
[2022-05-15] MEDS: CLINDAMYCIN-D5W 900 MG/50 ML*** 900 MG/50 ML BAG IV SCH (02:51)
[2022-05-15] MEDS: TORAdol 30 mg Injection IV PRN (03:20)
[2022-05-15 05:24] LABS: Hematocrit 33.1 % (35-47); Hemoglobin 10.7 g/dL (12.0-16.0); Mean Cell Volume 85.3 fL (78-100); Mean Corpuscular Hemoglobin 27.6 pg (26-32); Mean Corpuscular Hgb Concent. 32.3 g/dL (32-36); Mean Platelet Volume 10.2 fL (7.5-11.0); Platelet Count 265 x10^3/uL (150-450); Red Blood Count 3.88 x10^6/uL (4.1-5.4); Red Cell Distribution Width 14.8 % (11.5-14.0); White Blood Count 19.9 x10^3/uL (4.0-10.5)
[2022-05-15 05:51] LABS: ALBUMIN 3.3 g/dL (3.5-5.0); ALKALINE PHOSPHATASE 71 U/L (38-126); ANION GAP 13.1 MEQ/L (5-15); BLOOD UREA NITROGEN 9 mg/dL (7-17); CHLORIDE 100 mmol/L (98-107); Calcium 8.8 mg/dL (8.4-10.2); Carbon Dioxide 25 mmol/L (22-30); Creatinine 1 0.66 mg/dL (0.52-1.04); EST GLOMERULAR FILTRATION RATE > 60.0 ML/MIN; Glucose 233 mg/dL (74-106); Potassium 4.3 mmol/L (3.5-5.1); SGOT/AST 25 U/L (14-36); SGPT/ALT 22 U/L (0-35); SODIUM 133 mmol/L (137-145); Total Protein 6.1 g/dL (6.3-8.2)
[2022-05-15] MEDS: Lactated Ringers 1,000 ML IV SCH (06:18)
[2022-05-15 07:33] VITALS: BP 124/60; PULSE 74
--- NOTE | 2022-05-15 07:42 | PCM.NOTE ---
Date and Time: 05/15/22740 Subjective Assessment: pod 1 sp laparotomy supracervical hysterectomy pt resting in bed and doing well. able to ambulate and tolerate diet. vss afebrile abd; soft incision c/d/intact ext; no clubbing cyanosis or edema hgb; 19 a/p sp laparotomy supracervical hysterectomy dc home today fu office 2 wks Objective Exam Wound Assessment: Skin/Wound Assessment Wound/Incision Assessment Start: 05/14/22 13:44 Text: Status: Active Freq: Q6H Protocol: Document 05/15/22 06:00 RB (Rec: 05/15/22 06:01 RB [id number]) Wound/Incision Assessment Lower Anterior Medial Abdomen Wound Assessment Shift Assessment Wound Type Incision Wound Stage Non Pressure Wound Dressing Status Dry & Intact Drainage Amount None Drainage Odor None/Absent General Appearance Well Approximated,Open to air, Clean/Dry Surrounding Tissue [place] OBJECTIVE DATA Vital Signs: Vital Signs - 24 hr Temp Pulse Resp BP Pulse Ox 05/15/22 07:33 98.0 F 74 16 124/60 94 L 05/15/22 04:00 97.1 F 87 16 115/55 93 L 05/14/22 23:39 98.2 F 96 H 18 120/56 94 L 05/14/22 19:47 95.9 F 99 H 16 104/58 94 L 05/14/22 18:30 91 L 05/14/22 16:56 93 L 05/14/22 16:40 97.6 F 108 H 18 123/61 93 L 05/14/22 14:40 97.2 F 106 H 18 117/59 95 05/14/22 14:20 101 H 20 120/56 96 05/14/22 13:40 97.1 F 98 H 17 118/55 95 05/14/22 13:31 97.3 F 91 H 18 114/54 93 L 05/14/22 10:33 97.4 F 92 H 18 148/90 94 L 05/14/22 10:27 97.4 F 92 H 18 94 L Pain Assessment - Last Documented Pain Intensity 0 Pain Scale Used 0-10 Pain Scale Intake and Output: Intake & Output 05/12/22 05/13/22 05/14/22 05/15/22 11:59 11:59 11:59 11:59 Intake Total 2097 Output Total 900 Balance 1197 Weight 106.6 kg 111.6 kg Lab Results: Lab Results-Last 24 Hours 05/14/22 05/14/22 05/14/22 Range/Units 09:18 09:49 09:52 WBC 12.6 H (4.0-10.5) x10^3/uL RBC 4.74 (4.1-5.4) x10^6/uL Hgb 12.9 (12.0-16.0) g/dL Hct 40.0 (35-47) % MCV 84.4 (78-100) fL MCH 27.2 (26-32) pg MCHC 32.3 (32-36) g/dL RDW 14.8 H (11.5-14.0) % Plt Count 301 (150-450) x10^3/uL MPV 9.9 (7.5-11.0) fL Sodium (137-145) mmol/L Potassium (3.5-5.1) mmol/L Chloride (98-107) mmol/L Carbon Dioxide (22-30) mmol/L Anion Gap (5-15) MEQ/L BUN (7-17) mg/dL Creatinine (0.52-1.04) mg/dL Estimated GFR ML/MIN Glucose (74-106) mg/dL POC Glucometer 166 H (74 to 106) mg/dL Calcium (8.4-10.2) mg/dL Total Bilirubin (0.2-1.3) mg/dL AST (14-36) U/L ALT (0-35) U/L Alkaline Phosphatase (38-126) U/L Serum Total Protein (6.3-8.2) g/dL Albumin (3.5-5.0) g/dL Urinalys Dipstick Clnc Urine Color (YELLOW) Urine Appearance (CLEAR) Urine pH (5-6) Ur Specific [place] (1.005-1.025) POC Urine Protein Conf (Negative) Urine Ketones (NEGATIVE) Urine Nitrite (NEGATIVE) Urine Bilirubin (NEGATIVE) Urine Urobilinogen (0-1) mg/dL Urine Leukocytes (NEGATIVE) Urine WBC (Auto) (0-5) /HPF Urine RBC (Auto) (0-2) /HPF U Epithel Cells (Auto) (FEW) /HPF Urine Bacteria (Auto) (NEGATIVE) /HPF Urine RBC (0-5) Jorge/ul Urine Mucus (Auto) (NEGATIVE) /HPF Urine Glucose (NEGATIVE) mg/dL Urine HCG, Qual NEGATIVE (Negative) Influenza Type A Ag (NEGATIVE) Influenza Type B Ag (NEGATIVE) RSV (PCR) (Negative) SARS-CoV-2 (PCR) (NEGATIVE) ABO Group Rh Factor Antibody Screen (NEGATIVE) 05/14/22 05/14/22 05/14/22 Range/Units 09:52 09:52 09:52 WBC (4.0-10.5) x10^3/uL RBC (4.1-5.4) x10^6/uL Hgb (12.0-16.0) g/dL Hct (35-47) % MCV (78-100) fL MCH (26-32) pg MCHC (32-36) g/dL RDW (11.5-14.0) % Plt Count (150-450) x10^3/uL MPV (7.5-11.0) fL Sodium 137 (137-145) mmol/L Potassium 3.8 (3.5-5.1) mmol/L Chloride 103 (98-107) mmol/L Carbon Dioxide 26 (22-30) mmol/L Anion Gap 12.0 (5-15) MEQ/L BUN 8 (7-17) mg/dL Creatinine 0.64 (0.52-1.04) mg/dL Estimated GFR > 60.0 ML/MIN Glucose 166 H (74-106) mg/dL POC Glucometer (74 to 106) mg/dL Calcium 9.1 (8.4-10.2) mg/dL Total Bilirubin 0.40 (0.2-1.3) mg/dL AST 23 (14-36) U/L ALT 21 (0-35) U/L Alkaline Phosphatase 88 (38-126) U/L Serum Total Protein 7.2 (6.3-8.2) g/dL Albumin 3.9 (3.5-5.0) g/dL Urinalys Dipstick Clnc Urine Color (YELLOW) Urine Appearance (CLEAR) Urine pH (5-6) Ur Specific [place] (1.005-1.025) POC Urine Protein Conf (Negative) Urine Ketones (NEGATIVE) Urine Nitrite (NEGATIVE) Urine Bilirubin (NEGATIVE) Urine Urobilinogen (0-1) mg/dL Urine Leukocytes (NEGATIVE) Urine WBC (Auto) (0-5) /HPF Urine RBC (Auto) (0-2) /HPF U Epithel Cells (Auto) (FEW) /HPF Urine Bacteria (Auto) (NEGATIVE) /HPF Urine RBC (0-5) Jorge/ul Urine Mucus (Auto) (NEGATIVE) /HPF Urine Glucose (NEGATIVE) mg/dL Urine HCG, Qual (Negative) Influenza Type A Ag NEGATIVE (NEGATIVE) Influenza Type B Ag NEGATIVE (NEGATIVE) RSV (PCR) NEGATIVE (Negative) SARS-CoV-2 (PCR) NEGATIVE (NEGATIVE) ABO Group O Rh Factor POSITIVE Antibody Screen NEGATIVE (NEGATIVE) 05/14/22 05/14/22 05/14/22 Range/Units 11:42 13:10 18:41 WBC 20.7 H (4.0-10.5) x10^3/uL RBC 4.43 (4.1-5.4) x10^6/uL Hgb 12.1 (12.0-16.0) g/dL Hct 38.0 (35-47) % MCV 85.8 (78-100) fL MCH 27.3 (26-32) pg MCHC 31.8 L (32-36) g/dL RDW 14.8 H (11.5-14.0) % Plt Count 291 (150-450) x10^3/uL MPV 9.8 (7.5-11.0) fL Sodium (137-145) mmol/L Potassium (3.5-5.1) mmol/L Chloride (98-107) mmol/L Carbon Dioxide (22-30) mmol/L Anion Gap (5-15) MEQ/L BUN (7-17) mg/dL Creatinine (0.52-1.04) mg/dL Estimated GFR ML/MIN Glucose (74-106) mg/dL POC Glucometer 184 H (74 to 106) mg/dL Calcium (8.4-10.2) mg/dL Total Bilirubin (0.2-1.3) mg/dL AST (14-36) U/L ALT (0-35) U/L Alkaline Phosphatase (38-126) U/L Serum Total Protein (6.3-8.2) g/dL Albumin (3.5-5.0) g/dL Urinalys Dipstick Clnc MAIN LAB Urine Color YELLOW (YELLOW) Urine Appearance CLEAR (CLEAR) Urine pH 6.5 (5-6) Ur Specific [place] 1.025 (1.005-1.025) POC Urine Protein Conf NEGATIVE (Negative) Urine Ketones NEGATIVE (NEGATIVE) Urine Nitrite NEGATIVE (NEGATIVE) Urine Bilirubin NEGATIVE (NEGATIVE) Urine Urobilinogen 1 (0-1) mg/dL Urine Leukocytes NEGATIVE (NEGATIVE) Urine WBC (Auto) 3-5 (0-5) /HPF Urine RBC (Auto) 3-5 (0-2) /HPF U Epithel Cells (Auto) RARE (FEW) /HPF Urine Bacteria (Auto) NONE (NEGATIVE) /HPF Urine RBC TRACE-INTACT (0-5) Jorge/ul Urine Mucus (Auto) SLIGHT (NEGATIVE) /HPF Urine Glucose NEGATIVE (NEGATIVE) mg/dL Urine HCG, Qual (Negative) Influenza Type A Ag (NEGATIVE) Influenza Type B Ag (NEGATIVE) RSV (PCR) (Negative) SARS-CoV-2 (PCR) (NEGATIVE) ABO Group Rh Factor Antibody Screen (NEGATIVE) 05/14/22 05/15/22 05/15/22 Range/Units 20:20 05:00 05:00 WBC 19.9 H (4.0-10.5) x10^3/uL RBC 3.88 L (4.1-5.4) x10^6/uL Hgb 10.7 L (12.0-16.0) g/dL Hct 33.1 L (35-47) % MCV 85.3 (78-100) fL MCH 27.6 (26-32) pg MCHC 32.3 (32-36) g/dL RDW 14.8 H (11.5-14.0) % Plt Count 265 (150-450) x10^3/uL MPV 10.2 (7.5-11.0) fL Sodium 133 L (137-145) mmol/L Potassium 4.3 (3.5-5.1) mmol/L Chloride 100 (98-107) mmol/L Carbon Dioxide 25 (22-30) mmol/L Anion Gap 13.1 (5-15) MEQ/L BUN 9 (7-17) mg/dL Creatinine 0.66 (0.52-1.04) mg/dL Estimated GFR > 60.0 ML/MIN Glucose 233 H (74-106) mg/dL POC Glucometer 226 H (74 to 106) mg/dL Calcium 8.8 (8.4-10.2) mg/dL Total Bilirubin 0.30 (0.2-1.3) mg/dL AST 25 (14-36) U/L ALT 22 (0-35) U/L Alkaline Phosphatase 71 (38-126) U/L Serum Total Protein 6.1 L (6.3-8.2) g/dL Albumin 3.3 L (3.5-5.0) g/dL Urinalys Dipstick Clnc Urine Color (YELLOW) Urine Appearance (CLEAR) Urine pH (5-6) Ur Specific [place] (1.005-1.025) POC Urine Protein Conf (Negative) Urine Ketones (NEGATIVE) Urine Nitrite (NEGATIVE) Urine Bilirubin (NEGATIVE) Urine Urobilinogen (0-1) mg/dL Urine Leukocytes (NEGATIVE) Urine WBC (Auto) (0-5) /HPF Urine RBC (Auto) (0-2) /HPF U Epithel Cells (Auto) (FEW) /HPF Urine Bacteria (Auto) (NEGATIVE) /HPF Urine RBC (0-5) Jorge/ul Urine Mucus (Auto) (NEGATIVE) /HPF Urine Glucose (NEGATIVE) mg/dL Urine HCG, Qual (Negative) Influenza Type A Ag (NEGATIVE) Influenza Type B Ag (NEGATIVE) RSV (PCR) (Negative) SARS-CoV-2 (PCR) (NEGATIVE) ABO Group Rh Factor Antibody Screen (NEGATIVE) 05/15/22 Range/Units 06:55 WBC (4.0-10.5) x10^3/uL RBC (4.1-5.4) x10^6/uL Hgb (12.0-16.0) g/dL Hct (35-47) % MCV (78-100) fL MCH (26-32) pg MCHC (32-36) g/dL RDW (11.5-14.0) % Plt Count (150-450) x10^3/uL MPV (7.5-11.0) fL Sodium (137-145) mmol/L Potassium (3.5-5.1) mmol/L Chloride (98-107) mmol/L Carbon Dioxide (22-30) mmol/L Anion Gap (5-15) MEQ/L BUN (7-17) mg/dL Creatinine (0.52-1.04) mg/dL Estimated GFR ML/MIN Glucose (74-106) mg/dL POC Glucometer 179 H (74 to 106) mg/dL Calcium (8.4-10.2) mg/dL Total Bilirubin (0.2-1.3) mg/dL AST (14-36) U/L ALT (0-35) U/L Alkaline Phosphatase (38-126) U/L Serum Total Protein (6.3-8.2) g/dL Albumin (3.5-5.0) g/dL Urinalys Dipstick Clnc Urine Color (YELLOW) Urine Appearance (CLEAR) Urine pH (5-6) Ur Specific [place] (1.005-1.025) POC Urine Protein Conf (Negative) Urine Ketones (NEGATIVE) Urine Nitrite (NEGATIVE) Urine Bilirubin (NEGATIVE) Urine Urobilinogen (0-1) mg/dL Urine Leukocytes (NEGATIVE) Urine WBC (Auto) (0-5) /HPF Urine RBC (Auto) (0-2) /HPF U Epithel Cells (Auto) (FEW) /HPF Urine Bacteria (Auto) (NEGATIVE) /HPF Urine RBC (0-5) Jorge/ul Urine Mucus (Auto) (NEGATIVE) /HPF Urine Glucose (NEGATIVE) mg/dL Urine HCG, Qual (Negative) Influenza Type A Ag (NEGATIVE) Influenza Type B Ag (NEGATIVE) RSV (PCR) (Negative) SARS-CoV-2 (PCR) (NEGATIVE) ABO Group Rh Factor Antibody Screen (NEGATIVE) Multi-Disciplinary Progress Notes: Multi-Disciplinary Progress Notes 05/14/22 20:27 Respiratory Note by Mini Crystal SPO2 ON ROOM AIR AT REST WAS 82%. PLACED BACK ON 2L-SPO2 91% Initialized on 05/14/22 20:27 - END OF NOTE Assessment/Plan (1) S/P abdominal supracervical subtotal hysterectomy Current Visit: Yes Status: Acute Code(s): Z90.711 - ACQUIRED ABSENCE OF UTERUS WITH REMAINING CERVICAL STUMP
[2022-05-15] MEDS ORDERED: ENOXAPARIN SODIUM SQ SCH (08:00)
--- NOTE | 2022-05-15 08:01 | PCM.DS ---
Discharge Summary Date of Admission: 05/14/22 09:03 Admitting Physician: BERTA MARX DO Primary Care Provider: HARMAN JACOME Allergies Allergies cefaclor [From Ceclor] Allergy (Verified 05/14/22 13:48) codeine Allergy (Verified 05/14/22 13:48) oxycodone Allergy (Verified 05/14/22 13:48) Penicillins Allergy (Verified 05/14/22 13:48) Hospital Summary - Hospital Course Hospital Course: pt admitted on may 14 for undergoing laparotomy supracervical hysterectomy and underwent procedure without complication secondary to menorrhagia with failed ablation. during postop period did well able to ambulate and tolerate diet. pt had stable hgb at 10.8. pt advised and encouraged to ambulate upon discharge and was given rx for norco and clindamycin. incision appeared normal. pt advised to fu in office in 2 wks as all questions answered to her satisfaction. - Vitals & Intake/Output Vital Signs: Vital Signs Temperature 98.0 F 05/15/22 07:33 Pulse Rate 74 05/15/22 07:33 Respiratory Rate 16 05/15/22 07:33 Blood Pressure 124/60 05/15/22 07:33 O2 Sat by Pulse Oximetry 93 L 05/15/22 07:50 Intake & Output: Intake & Output 05/12/22 05/13/22 05/14/22 05/15/22 11:59 11:59 11:59 11:59 Intake Total 2097 Output Total 900 Balance 1197 Weight 106.6 kg 111.6 kg - Lab Result Diagrams: 05/15/22 05:00 05/15/22 05:00 Lab Results-Last 24 Hrs: Lab Results-Last 24 Hours 05/14/22 05/14/22 05/14/22 Range/Units 09:18 09:49 09:52 WBC 12.6 H (4.0-10.5) x10^3/uL RBC 4.74 (4.1-5.4) x10^6/uL Hgb 12.9 (12.0-16.0) g/dL Hct 40.0 (35-47) % MCV 84.4 (78-100) fL MCH 27.2 (26-32) pg MCHC 32.3 (32-36) g/dL RDW 14.8 H (11.5-14.0) % Plt Count 301 (150-450) x10^3/uL MPV 9.9 (7.5-11.0) fL Sodium (137-145) mmol/L Potassium (3.5-5.1) mmol/L Chloride (98-107) mmol/L Carbon Dioxide (22-30) mmol/L Anion Gap (5-15) MEQ/L BUN (7-17) mg/dL Creatinine (0.52-1.04) mg/dL Estimated GFR ML/MIN Glucose (74-106) mg/dL POC Glucometer 166 H (74 to 106) mg/dL Calcium (8.4-10.2) mg/dL Total Bilirubin (0.2-1.3) mg/dL AST (14-36) U/L ALT (0-35) U/L Alkaline Phosphatase (38-126) U/L Serum Total Protein (6.3-8.2) g/dL Albumin (3.5-5.0) g/dL Urinalys Dipstick Clnc Urine Color (YELLOW) Urine Appearance (CLEAR) Urine pH (5-6) Ur Specific [place] (1.005-1.025) POC Urine Protein Conf (Negative) Urine Ketones (NEGATIVE) Urine Nitrite (NEGATIVE) Urine Bilirubin (NEGATIVE) Urine Urobilinogen (0-1) mg/dL Urine Leukocytes (NEGATIVE) Urine WBC (Auto) (0-5) /HPF Urine RBC (Auto) (0-2) /HPF U Epithel Cells (Auto) (FEW) /HPF Urine Bacteria (Auto) (NEGATIVE) /HPF Urine RBC (0-5) Jorge/ul Urine Mucus (Auto) (NEGATIVE) /HPF Urine Glucose (NEGATIVE) mg/dL Urine HCG, Qual NEGATIVE (Negative) Influenza Type A Ag (NEGATIVE) Influenza Type B Ag (NEGATIVE) RSV (PCR) (Negative) SARS-CoV-2 (PCR) (NEGATIVE) ABO Group Rh Factor Antibody Screen (NEGATIVE) 05/14/22 05/14/22 05/14/22 Range/Units 09:52 09:52 09:52 WBC (4.0-10.5) x10^3/uL RBC (4.1-5.4) x10^6/uL Hgb (12.0-16.0) g/dL Hct (35-47) % MCV (78-100) fL MCH (26-32) pg MCHC (32-36) g/dL RDW (11.5-14.0) % Plt Count (150-450) x10^3/uL MPV (7.5-11.0) fL Sodium 137 (137-145) mmol/L Potassium 3.8 (3.5-5.1) mmol/L Chloride 103 (98-107) mmol/L Carbon Dioxide 26 (22-30) mmol/L Anion Gap 12.0 (5-15) MEQ/L BUN 8 (7-17) mg/dL Creatinine 0.64 (0.52-1.04) mg/dL Estimated GFR > 60.0 ML/MIN Glucose 166 H (74-106) mg/dL POC Glucometer (74 to 106) mg/dL Calcium 9.1 (8.4-10.2) mg/dL Total Bilirubin 0.40 (0.2-1.3) mg/dL AST 23 (14-36) U/L ALT 21 (0-35) U/L Alkaline Phosphatase 88 (38-126) U/L Serum Total Protein 7.2 (6.3-8.2) g/dL Albumin 3.9 (3.5-5.0) g/dL Urinalys Dipstick Clnc Urine Color (YELLOW) Urine Appearance (CLEAR) Urine pH (5-6) Ur Specific [place] (1.005-1.025) POC Urine Protein Conf (Negative) Urine Ketones (NEGATIVE) Urine Nitrite (NEGATIVE) Urine Bilirubin (NEGATIVE) Urine Urobilinogen (0-1) mg/dL Urine Leukocytes (NEGATIVE) Urine WBC (Auto) (0-5) /HPF Urine RBC (Auto) (0-2) /HPF U Epithel Cells (Auto) (FEW) /HPF Urine Bacteria (Auto) (NEGATIVE) /HPF Urine RBC (0-5) Jorge/ul Urine Mucus (Auto) (NEGATIVE) /HPF Urine Glucose (NEGATIVE) mg/dL Urine HCG, Qual (Negative) Influenza Type A Ag NEGATIVE (NEGATIVE) Influenza Type B Ag NEGATIVE (NEGATIVE) RSV (PCR) NEGATIVE (Negative) SARS-CoV-2 (PCR) NEGATIVE (NEGATIVE) ABO Group O Rh Factor POSITIVE Antibody Screen NEGATIVE (NEGATIVE) 07/26/22 07/26/22 07/26/22 Range/Units 11:42 13:10 18:41 WBC 20.7 H (4.0-10.5) x10^3/uL RBC 4.43 (4.1-5.4) x10^6/uL Hgb 12.1 (12.0-16.0) g/dL Hct 38.0 (35-47) % MCV 85.8 (78-100) fL MCH 27.3 (26-32) pg MCHC 31.8 L (32-36) g/dL RDW 14.8 H (11.5-14.0) % Plt Count 291 (150-450) x10^3/uL MPV 9.8 (7.5-11.0) fL Sodium (137-145) mmol/L Potassium (3.5-5.1) mmol/L Chloride (98-107) mmol/L Carbon Dioxide (22-30) mmol/L Anion Gap (5-15) MEQ/L BUN (7-17) mg/dL Creatinine (0.52-1.04) mg/dL Estimated GFR ML/MIN Glucose (74-106) mg/dL POC Glucometer 184 H (74 to 106) mg/dL Calcium (8.4-10.2) mg/dL Total Bilirubin (0.2-1.3) mg/dL AST (14-36) U/L ALT (0-35) U/L Alkaline Phosphatase (38-126) U/L Serum Total Protein (6.3-8.2) g/dL Albumin (3.5-5.0) g/dL Urinalys Dipstick Clnc MAIN LAB Urine Color YELLOW (YELLOW) Urine Appearance CLEAR (CLEAR) Urine pH 6.5 (5-6) Ur Specific [place] 1.025 (1.005-1.025) POC Urine Protein Conf NEGATIVE (Negative) Urine Ketones NEGATIVE (NEGATIVE) Urine Nitrite NEGATIVE (NEGATIVE) Urine Bilirubin NEGATIVE (NEGATIVE) Urine Urobilinogen 1 (0-1) mg/dL Urine Leukocytes NEGATIVE (NEGATIVE) Urine WBC (Auto) 3-5 (0-5) /HPF Urine RBC (Auto) 3-5 (0-2) /HPF U Epithel Cells (Auto) RARE (FEW) /HPF Urine Bacteria (Auto) NONE (NEGATIVE) /HPF Urine RBC TRACE-INTACT (0-5) Jorge/ul Urine Mucus (Auto) SLIGHT (NEGATIVE) /HPF Urine Glucose NEGATIVE (NEGATIVE) mg/dL Urine HCG, Qual (Negative) Influenza Type A Ag (NEGATIVE) Influenza Type B Ag (NEGATIVE) RSV (PCR) (Negative) SARS-CoV-2 (PCR) (NEGATIVE) ABO Group Rh Factor Antibody Screen (NEGATIVE) 05/14/22 05/15/22 05/15/22 Range/Units 20:20 05:00 05:00 WBC 19.9 H (4.0-10.5) x10^3/uL RBC 3.88 L (4.1-5.4) x10^6/uL Hgb 10.7 L (12.0-16.0) g/dL Hct 33.1 L (35-47) % MCV 85.3 (78-100) fL MCH 27.6 (26-32) pg MCHC 32.3 (32-36) g/dL RDW 14.8 H (11.5-14.0) % Plt Count 265 (150-450) x10^3/uL MPV 10.2 (7.5-11.0) fL Sodium 133 L (137-145) mmol/L Potassium 4.3 (3.5-5.1) mmol/L Chloride 100 (98-107) mmol/L Carbon Dioxide 25 (22-30) mmol/L Anion Gap 13.1 (5-15) MEQ/L BUN 9 (7-17) mg/dL Creatinine 0.66 (0.52-1.04) mg/dL Estimated GFR > 60.0 ML/MIN Glucose 233 H (74-106) mg/dL POC Glucometer 226 H (74 to 106) mg/dL Calcium 8.8 (8.4-10.2) mg/dL Total Bilirubin 0.30 (0.2-1.3) mg/dL AST 25 (14-36) U/L ALT 22 (0-35) U/L Alkaline Phosphatase 71 (38-126) U/L Serum Total Protein 6.1 L (6.3-8.2) g/dL Albumin 3.3 L (3.5-5.0) g/dL Urinalys Dipstick Clnc Urine Color (YELLOW) Urine Appearance (CLEAR) Urine pH (5-6) Ur Specific [place] (1.005-1.025) POC Urine Protein Conf (Negative) Urine Ketones (NEGATIVE) Urine Nitrite (NEGATIVE) Urine Bilirubin (NEGATIVE) Urine Urobilinogen (0-1) mg/dL Urine Leukocytes (NEGATIVE) Urine WBC (Auto) (0-5) /HPF Urine RBC (Auto) (0-2) /HPF U Epithel Cells (Auto) (FEW) /HPF Urine Bacteria (Auto) (NEGATIVE) /HPF Urine RBC (0-5) Jorge/ul Urine Mucus (Auto) (NEGATIVE) /HPF Urine Glucose (NEGATIVE) mg/dL Urine HCG, Qual (Negative) Influenza Type A Ag (NEGATIVE) Influenza Type B Ag (NEGATIVE) RSV (PCR) (Negative) SARS-CoV-2 (PCR) (NEGATIVE) ABO Group Rh Factor Antibody Screen (NEGATIVE) 05/15/22 Range/Units 06:55 WBC (4.0-10.5) x10^3/uL RBC (4.1-5.4) x10^6/uL Hgb (12.0-16.0) g/dL Hct (35-47) % MCV (78-100) fL MCH (26-32) pg MCHC (32-36) g/dL RDW (11.5-14.0) % Plt Count (150-450) x10^3/uL MPV (7.5-11.0) fL Sodium (137-145) mmol/L Potassium (3.5-5.1) mmol/L Chloride (98-107) mmol/L Carbon Dioxide (22-30) mmol/L Anion Gap (5-15) MEQ/L BUN (7-17) mg/dL Creatinine (0.52-1.04) mg/dL Estimated GFR ML/MIN Glucose (74-106) mg/dL POC Glucometer 179 H (74 to 106) mg/dL Calcium (8.4-10.2) mg/dL Total Bilirubin (0.2-1.3) mg/dL AST (14-36) U/L ALT (0-35) U/L Alkaline Phosphatase (38-126) U/L Serum Total Protein (6.3-8.2) g/dL Albumin (3.5-5.0) g/dL Urinalys Dipstick Clnc Urine Color (YELLOW) Urine Appearance (CLEAR) Urine pH (5-6) Ur Specific [place] (1.005-1.025) POC Urine Protein Conf (Negative) Urine Ketones (NEGATIVE) Urine Nitrite (NEGATIVE) Urine Bilirubin (NEGATIVE) Urine Urobilinogen (0-1) mg/dL Urine Leukocytes (NEGATIVE) Urine WBC (Auto) (0-5) /HPF Urine RBC (Auto) (0-2) /HPF U Epithel Cells (Auto) (FEW) /HPF Urine Bacteria (Auto) (NEGATIVE) /HPF Urine RBC (0-5) Jorge/ul Urine Mucus (Auto) (NEGATIVE) /HPF Urine Glucose (NEGATIVE) mg/dL Urine HCG, Qual (Negative) Influenza Type A Ag (NEGATIVE) Influenza Type B Ag (NEGATIVE) RSV (PCR) (Negative) SARS-CoV-2 (PCR) (NEGATIVE) ABO Group Rh Factor Antibody Screen (NEGATIVE) Micro Results-Entire Visit: Accuchecks Date 05/15/22 Date 05/15/22 Time 07:32 - Procedures and Test Procedures and Tests throughout Hospitalization: Therapy Orders & Screens 05/14/22 13:17 Incentive Spirometry TID Comment: Diagnosis: Menorrhagia, failed endometrial ablation 05/14/22 16:24 Oxygen Nasal Cannula 2 lpm Comment: Diagnosis: Total Abd Hysterectomy with left salpingo-ooppherectomy Discharge Exam Wound Assessment: Skin/Wound Assessment Wound/Incision Assessment Start: 05/14/22 13:44 Text: Status: Active Freq: Q6H Protocol: Document 05/15/22 06:00 RB (Rec: 05/15/22 06:01 RB [id number]) Wound/Incision Assessment Lower Anterior Medial Abdomen Wound Assessment Shift Assessment Wound Type Incision Wound Stage Non Pressure Wound Dressing Status Dry & Intact Drainage Amount None Drainage Odor None/Absent General Appearance Well Approximated,Open to air, Clean/Dry Surrounding Tissue [place] Final Diagnosis/Problem List - Final Discharge Diagnosis/Problem (1) S/P abdominal supracervical subtotal hysterectomy Current Visit: Yes Status: Acute Code(s): Z90.711 - ACQUIRED ABSENCE OF UTERUS WITH REMAINING CERVICAL STUMP - Discharge Disposition: Home, Self-Care Condition: Stable Prescriptions: New clindamycin HCL [Clindamycin HCl] 300 mg PO BID #10 Hydrocodone/Acetaminophen [Hydrocodone-Acetamin 5-325 mg] 1 tab PO Q6HPRN PRN #30 tablet MDD 4 PRN Reason: Pain No Action Sertraline HCl 50 mg [Zoloft 50 mg Tablet] 50 mg PO QAM Ibuprofen [Ibu] 800 mg PO UD PRN PRN Reason: Pain hydrOXYzine HCL [Hydroxyzine HCl] 50 mg PO UD Omeprazole 20 mg PO DAILY Haloperidol [Haldol] 5 mg PO TID Zolpidem Tartrate [Ambien] 10 mg PO HS haloperidoL [Haloperidol] 2 mg PO HS Semaglutide [Ozempic] 1 mg SQ WEEKLY Insulin Lispro 0 unit SQ UD Follow up with: HARMAN JACOME [Primary Care Provider] - BERTA MARX DO [ACTIVE STAFF] - 2 weeks (should keep incision clean and dry may go up and down stairs may shower but no bath no driving)
--- NOTE | 2022-05-15 08:32 | OP ---
SURGERY DATE/TIME: 05/14/2022 1059 PREOPERATIVE DIAGNOSIS: Menorrhagia with previously failed ablation. POSTOPERATIVE DIAGNOSIS: Menorrhagia with previously failed ablation. PROCEDURES: 1) Laparotomy supracervical hysterectomy. 2) Left salpingectomy. SURGEON: Crispin Rhodes D.O. EXCAVATOR OPERATOR: Ferdinand Harley surgical aide. ANESTHESIA: General. ESTIMATED BLOOD LOSS: 200 cc. COMPLICATIONS: None. INDICATIONS: The risks, benefits, indications and alternatives of the procedure were reviewed with the patient prior to the procedure. The patient understood the risk of infection, bleeding, bowel injury, bladder injury, ureteral injury, uterine perforation, pelvic infection and thromboembolic disorder associated with this surgery and desires to have this surgery as a possible means to alleviate her current medical condition. DESCRIPTION OF PROCEDURE AND FINDINGS: At this point the patient is taken to the operating room where she was placed in the supine position and given general anesthesia, prepared and draped in the usual sterile fashion. A Pfannenstiel incision was made approximately 2 cm above the symphysis pubis and extended sharply through the rectus fascia. The fascia was then incised bilaterally with curved Parker scissors and the muscles of the anterior abdominal wall were in the midline by sharp and blunt dissection. The peritoneum was then grasped between two pickups elevated and entered sharply with Metzenbaum scissors. The pelvis is then examined and noted to have about a 10 week uterus. An O'Jaya-O'Crystal retractor was placed into the incision and the bowel packed away with moist laparotomy sponges. From this point a tenaculum is then placed on the fundus of the uterus and this was used to elevate the uterus. From this point the LigaSure was used and was placed over the left utero-ovarian ligament where it is clamped, coagulated, cut and taken down to the round ligament towards the uterine vasculature where it to is clamped, coagulated and cut on two contiguous regions and a bladder flap developed on its side. The same procedure was performed on the right side where the right utero-ovarian ligament was clamped, coagulated, cut and taken down to the round ligament and towards the uterine vasculature where it to was clamped, coagulated and cut in two contiguous regions and a bladder flap developed on its side. From this point the uterus is then amputated with the cautery and the cervical stump closed with a series of interrupted 0 Vicryl sutures. Hemostasis was obtained. The right tube was not visualized. However, the left tube was visualized. It was elevated and the LigaSure was used to clamp, coagulate and cut on the mesosalpinx and was removed. Both ovaries appeared to be within normal limits and no abnormalities were noted. From this point the pelvis is irrigated copiously with warm normal saline. All lap, sponge and instruments were then removed from the patient's abdomen. From this point the fascia was then closed with looped 0 PDS suture and hemostasis assured. The subcutaneous layer was closed in two layers with 3-0 Vicryl suture and the skin was closed with absorbable porfirio called INSORB. Sponge, lap, needle and instruments counts were correct x2. The patient was then taken to the recovery room in stable condition.
[2022-05-15] MEDS: ATARAX 25 MG PO SCH (09:00)
[2022-05-15] MEDS: Protonix 40MG Tablet PO SCH (09:01)
[2022-05-15] MEDS: ZOLOFT 50 MG TABLET PO SCH (09:01)
[2022-05-15] MEDS: Docusate Sodium 100 MG PO SCH (09:01)
[2022-05-15] MEDS ORDERED: NON-FORMULARY ITEM (Omeprazole [Omeprazole] 20 MG Tablet.Dr) PO SCH (10:00)
[2022-05-15 11:08] VITALS: O2SAT 89
[2022-05-15] MEDS ORDERED: ATARAX 25 MG PO SCH (12:00)
== END 2022-05-15 11:30 | disposition home or self-care (01) | DRG 743 ==
LOC: MED SURG 09:03
PROVIDERS: ADMIT Obstetrics & Gynecology; ATTEND Obstetrics & Gynecology
PROC: 0UT90ZL Resection of Uterus, Supracervical, Open Approach (ICD-10-PCS; principal; 2022-05-14)
PROC: 0UT60ZZ Resection of Left Fallopian Tube, Open Approach (ICD-10-PCS; 2022-05-14)
DX: N92.0 Excessive and frequent menstruation with regular cycle (principal); Z20.828 Contact with and (suspected) exposure to other viral communicable diseases
CPT/HCPCS: 0241U; 36415; 62322; 64488; 76937; 76942; 80053; 81001; 81025; 82947; 83036; 85027; 86850; 86900; 86901; 87086; 94760; J1100; J1650; J1885; J2250; J2274; J2405; J2704; J3010; A9270-GY